=== PATIENT | male | born 1935 | race Caucasian/White ===

== ENCOUNTER 2018-03-04 07:42 | Emergency (ER) | payer MEDICARE, OTHER ==
--- OUTSIDE RECORDS SUMMARY | 2018-03-04 07:50 | XMS REPORT ---
:1935 External Reference #:[id number] Author Organization [facility] Address [address] [place] [address] Phone [phone] Care Team Providers Name Role Phone Slade Da Silva MD Primary Care Physician Unavailable Payers Type Date Identification Numbers Payment Provider Subscriber Medicare Primary Policy Number: [id number] Medicare-[facility] Gill Payne SRVS PayID: [id number] [address] [place] [address] Commercial Policy Number: [id number] [facility] [place] [facility] 1 Gill Payne Group Name: [facility] Serv Benefit Plans [address] PayID: [id number] [place] [address] Problems Date Description Provider Status Onset: 03/06/2014 Essential hypertension Yogesh Mcneill M.D. 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 daily Aspirin Low Dose / Active 81mg 1 po daily Self 0000 Carvedilol / Active 3.125mg 2 po daily even A. Coumadin / Active 2mg 1 po daily and as even A. directed MD Furosemide / Active 20mg 1 po daily even A. Glyburide-Metfor / Active 5/500mg 1 po bid even A. Lipitor / Active 80mg 1 po daily even A. Nexium / Active 40mg 1 po daily even A. Spironolactone / Active 25mg 1 po daily even A. Ofloxacin (Otic) 12/27/ Hx Solution 0.3% 10ml apply 5 H92.11 Yogesh Hunter 2017 - drops in Strom[place] 01/18/ right ear r, M.Brian 2017 twice daily Ofloxacin (Otic) 10/04/ Hx Solution 0.3% 10ml apply 5 Yogesh Hunter 2016 - drops in [place]rom[place] 12/27/ right ear r, M.Brian 2017 twice daily Ciprofloxacin 01/04/ Hx Solution 0.3% 5ml 4 drops to Bertrand HCL 2017 - affected Dat Marlys, 01/24/ ear twice 2017 a day for 7 days Vital Signs Date Vital Result Comment 02/15/2018 Weight 195.00 lb Weight in kg's 88.452 Height 68 inches 5'8" Height in cm's 172.7 cm BMI (Body Mass Index) 29.6 kg/m2 01/31/2018 Weight 195.00 lb Weight in kg's 88.452 Height 68 inches 5'8" Height in cm's 172.7 cm BMI (Body Mass Index) 29.6 kg/m2 01/18/2018 Weight 195.00 lb Weight in kg's 88.452 Height 68 inches 5'8" Height in cm's 172.7 cm BMI (Body Mass Index) 29.6 kg/m2 12/27/2017 Weight 195.00 lb Weight in kg's 88.452 Height 68 inches 5'8" Height in cm's 172.7 cm BMI (Body Mass Index) 29.6 kg/m2 10/18/2017 BP Systolic 139 mmHg BP Diastolic 61 mmHg Heart Rate 85 /min Respiratory Rate 17 /min Weight 195.00 lb Weight in kg's 88.452 Height 68 inches 5'8" Height in cm's 172.7 cm BMI (Body Mass Index) 29.6 kg/m2 10/04/2017 BP Systolic 157 mmHg BP Diastolic 73 mmHg Heart Rate 78 /min Respiratory Rate 17 /min Weight 195.00 lb Weight in kg's 88.452 Height 68 inches 5'8" Height in cm's 172.7 cm BMI (Body Mass Index) 29.6 kg/m2 01/24/2017 BP Systolic 150 mmHg BP Diastolic 82 mmHg Heart Rate 83 /min Respiratory Rate 17 /min Weight 195.00 lb Weight in kg's 88.452 Height 68 inches 5'8" Height in cm's 172.7 cm BMI (Body Mass Index) 29.6 kg/m2 01/05/2017 BP Systolic 170 mmHg BP Diastolic 94 mmHg Heart Rate 78 /min Respiratory Rate 17 /min Weight 195.00 lb Weight in kg's 88.452 Height 68 inches 5'8" Height in cm's 172.7 cm BMI (Body Mass Index) 29.6 kg/m2 05/03/2016 BP Systolic 127 mmHg BP Diastolic 66 mmHg Heart Rate 72 /min Respiratory Rate 17 /min Weight 195.00 lb Weight in kg's 88.452 Height 68 inches 5'8" Height in cm's 172.7 cm BMI (Body Mass Index) 29.6 kg/m2 09/02/2015 BP Systolic 139 mmHg BP Diastolic 71 mmHg Heart Rate 72 /min Respiratory Rate 17 /min Weight 195.00 lb Weight in kg's 88.452 Height 68 inches 5'8" Height in cm's 172.7 cm BMI (Body Mass Index) 29.6 kg/m2 03/06/2014 BP Systolic 139 mmHg BP Diastolic 69 mmHg Heart Rate 68 /min Respiratory Rate 16 /min Weight 68.00 lb Weight in kg's 30.845 Height 204 inches 17'0" Height in cm's 518.2 cm BMI (Body Mass Index) 1.1 kg/m2 Results Test Date Test Result H/L Range Note Laboratory test 01/31/2018 Ear Culture SEE RESULT BELOW 1 finding Laboratory test 12/27/2017 Surgical Pathology SEE RESULT BELOW 2 finding 1 SEE RESULT BELOW Name: GILL PAYNE : [address]: Yogesh Mcneill MD Acct: [id number] Unit: [id number] AGE: 82 Location: [facility] Re01/31/18 SEX: M Status: REG REF SPEC: [id number] TAISHA: 01/31/18-[address] [facility] [address]: Yogesh Mcneill MD REQ: [id number] RECD: 01/31/18 STATUS: COMP _ SOURCE: EAR SPDESC:RIGHT ORDERED: EAR Cult/GS COMMENTS: [id number] Procedure Result Reported Site Ear Culture Final 02/03/18- 0946 ML Organism 1 CORYNEBACTERIUM SPECIES Quantity 2+ Organism 2 ENTEROCOCCUS FAECALIS Quantity 2+ 2. ENTEROCOCCUS FAECALIS M.I.C. RX --------- ------ Ampicillin <=2 S Penicillin 8 S Ciprofloxacin >=8 R Erythromycin >=8 R Gentamicin High Level R Levofloxacin >=8 R Linezolid 2 S * Quinupristin/Dalfopristin 8 R * Streptomycin High Level R Tetracycline >=16 R Tigecycline <=0.12 S Vancomycin 1 S Imipenem-Deduced S * Ampicillin/Sulbactam-Deduced S CONTINUED ON NEXT PAGE DEPARTMENT OF PATHOLOGY, [address] [place] [address] Leo Ellis M.D. Director [facility] # [id number] Patient: GILL PAYNE [id number] (Continued) Specimen: [id number] Collected: 01/31/18 Received: 01/31/18-1152 (Continued) Procedure Result Reported Site Ear Culture Final (continued) * These antibiotics are not available in the [facility] Formulary Contact the Microbiology Department for any additional antibiotic reporting. Ear Gram Stain Final 01/31/18- 1447 ML 2+ Neutrophils 1+ Epithelial Cells 1+ Nucleated Cells 4+ Gram Positive Bacilli , resembling diptheroids 3+ Gram Positive Cocci * ML - Main Lab . END OF REPORT DEPARTMENT OF PATHOLOGY, [address] [place] [address] Leo lElis M.D. Director [facility] # [id number] 2 SEE RESULT BELOW Name: PAYNEGILL : [address]: Yogesh Mcneill MD Acct: [id number] Unit: [id number] AGE: 82 Location: [facility] Re12/27/17 SEX: M Status: REG REF SPEC: [id number] TAISHA: 12/27/17-[address] [facility] [address]: Yogesh Mcneill MD REQ: [id number] RECD: 12/27/171147 STATUS: SOUT _ ORDERED: LEVEL 4 COMMENTS: [id number] FINAL DIAGNOSIS Skin, left ear, biopsy: -- Basal cell carcinoma, superficial and nodular type, micronodular and infiltrative patterns, ulcerated. -- Lesional cells extend to the biopsy base and to at least one lateral specimen edge. CLINICAL HISTORY No history given GROSS DESCRIPTION The specimen is received in formalin labeled, Left Ear Lesion, and consists of a 0.4 by up to 0.3 x 0.2 cm garza-white irregular hairbearing skin fragment which is inked , bisected and submitted entirely in one cassette. Signed (signature on file) Maria De Jesus Martinez MD 1043 END OF REPORT DEPARTMENT OF PATHOLOGY, [address] [place] [address] Leo Ellis M.D. Director [facility] # [id number] Procedures Date CPT Code Description Status 02/15/2018 15553 Binocular Microscopy Completed 01/31/2018 61371 Binocular Microscopy Completed 12/27/2017 44201 Binocular Microscopy Completed 12/27/2017 59868 Biopsy External Ear Completed 10/04/2017 67697 Binocular Microscopy Completed 01/24/2017 18038 Binocular Microscopy Completed 05/03/2016 54295 Removal Wax Impaction Completed 09/02/2015 90656 Tympanometry Completed 09/02/2015 26796 Comprehensive Audiogram Completed 03/06/2014 81682 Binocular Microscopy Completed Encounters Type Date Location Provider CPT E/M Dx Office Visit 02/15/2018 [place],After 10/17/07 Yogesh Hunter 74915 H60.311 8:30a Robyn Mcneill H72.01 Office Visit 01/31/2018 9:30a [place],After 10/17/07 Yogesh Mcneill 84572 H92.11 M.D. H60.311 H72.01 Office Visit 01/18/2018 9:45a [place],After 10/17/07 Yogesh Mcneill 45809 H92.11 M.D. H60.311 H72.01 Office Visit 12/27/2017 9:30a [place],After 10/17/07 Yogesh Mcneill 51814 H92.11 M.D. H60.311 H72.01 D48.5 Office Visit 10/18/2017 11:15a [place],After 10/17/07 Yogesh Mcneill 47345 H72.01 M.D. H92.11 Office Visit 10/04/2017 2:30p [place],After 10/17/07 Yogesh Mcneill 67583 H72.01 M.D. H92.11 H61.22 Office Visit 01/24/2017 9:30a [place],After 10/17/07 Yogesh Mcneill 95711 H72.01 M.D. H90.8 Office Visit 01/05/2017 11:45a [place],After 10/17/07 [place] [address] H72.01 H92.11 Office Visit 09/02/2015 9:15a [place],After 10/17/07 Yogesh Mcneill 95553 H72.01 M.D. H61.23 H91.13 H90.11 Office Visit 03/06/2014 3:00p [place],After 10/17/07 Yogesh Mcneill, 19236 384.21 MElvis Plan of Care 02/15/2018 - Yogesh Mcneill M.D.H60.311 Diffuse otitis externa, right earComments:The patient's ear is doing much better. The problem was that the organisms causing the infection were resistant to the standard fluoroquinolone antibiotic ear drops. Switching to the Tobramycin was the correct thing to do. He will stop the drops and FU in 3 months.Follow up:FU in 3 months OV.H72.01 Central perforation of tympanic membrane, right ear
--- OUTSIDE RECORDS SUMMARY | 2018-03-04 07:50 | XMS REPORT ---
:1935 External Reference #:[id number] Author Organization [facility] Address [address] [place] [address] Phone [phone] Care Team Providers Name Role Phone Slade Da Silva MD Primary Care Physician Unavailable Payers Type Date Identification Numbers Payment Provider Subscriber Medicare Primary Policy Number: [id number] Medicare-[facility] Gill Payne SRVS PayID: [id number] [address] [place] [address] Commercial Policy Number: [id number] [facility] 1 Gill Payne Group Name: [facility] Serv Benefit Plans [address] PayID: [id number] [place] [address] Problems Date Description Provider Status Onset: 03/06/2014 Essential hypertension Yogesh Mcneill M.D. 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 Cigarette Use Never Smoked Cigarettes Cigars [...] days Vital Signs Date Vital Result Comment 01/31/2018 Weight 195.00 lb Weight in kg's [...] [address]: Yogesh Mcneill MD Acct: [id number] Unit: [id number] AGE: 82 Location: [facility] Re01/31/18 SEX: M Status: REG REF SPEC: [id number] TAISHA: 01/31/18-1004 [facility] DR: Yogesh Mcneill MD REQ: [id number] RECD: 01/31/18 STATUS: COMP _ SOURCE: EAR SPDESC:RIGHT ORDERED: EAR Cult/GS COMMENTS: [id number] Procedure Result Reported Site Ear Culture Final [...] CONTINUED ON NEXT PAGE DEPARTMENT OF PATHOLOGY, [address] [place] [address] Leo Ellis M.D. Director [facility] # [id number] Patient: GILL PAYNE [id number] (Continued) Specimen: [id number] Collected: 01/31/18-1003 Received: 01/31/18-1152 (Continued) Procedure Result Reported Site Ear Culture Final (continued) * These antibiotics are not available in the [facility] Formulary Contact the Microbiology Department for any additional antibiotic reporting. Ear Gram Stain Final 01/31/18- 1447 ML 2+ Neutrophils 1+ Epithelial Cells 1+ Nucleated Cells 4+ Gram Positive Bacilli , resembling diptheroids 3+ Gram Positive Cocci * ML - Main Lab . END OF REPORT DEPARTMENT OF PATHOLOGY, [address] [place] [address] Leo Ellis M.D. Director [facility] # [id number] 2 SEE RESULT BELOW Name: GILL PAYNE : [address]: Yogesh Mcneill MD Acct: [id number] Unit: [id number] AGE: 82 Location: [facility] Re12/27/17 SEX: M Status: REG REF SPEC: [id number] TAISHA: 12/27/17-0921 [facility] DR: Yogesh Mcneill MD REQ: [id number] RECD: 12/27/17 STATUS: SOUT _ ORDERED: LEVEL 4 COMMENTS: [id number] FINAL DIAGNOSIS Skin, left ear, biopsy: -- [...] 1043 END OF REPORT DEPARTMENT OF PATHOLOGY, [address] [place] [address] Leo Ellis M.D. Director [facility] # [id number] Procedures Date CPT Code Description Status 01/31/2018 58617 Binocular Microscopy Completed 12/27/2017 95859 Binocular Microscopy Completed 12/27/2017 32019 Biopsy External Ear Completed 10/04/2017 99860 Binocular Microscopy Completed 01/24/2017 93420 Binocular Microscopy Completed 05/03/2016 54875 Removal Wax Impaction Completed 09/02/2015 26369 Tympanometry Completed 09/02/2015 41947 Comprehensive Audiogram Completed 03/06/2014 64482 Binocular Microscopy Completed Encounters Type Date Location Provider CPT E/M Dx Office Visit 01/31/2018 9:30a [place],After 10/17/07 Yogesh Hunter 88378 H92.11 Robyn Mcneill H60.311 H72.01 Office Visit 01/18/2018 9:45a [place],After 10/17/07 Yogesh Mcneill 22570 H92.11 Robyn H60.311 H72.01 Office Visit 12/27/2017 9:30a [place],After 10/17/07 Yogesh Mcneill 93144 H92.11 Robyn H60.311 H72.01 D48.5 Office Visit 10/18/2017 11:15a [place],After 10/17/07 Yogesh Mcneill 57131 H72.01 Robyn H92.11 Office Visit 10/04/2017 2:30p [place],After 10/17/07 Yogesh Mcneill 15914 H72.01 Robyn H92.11 H61.22 Office Visit 01/24/2017 9:30a [place],After 10/17/07 Yogesh Mcneill 88607 H72.01 Robyn H90.8 Office Visit 01/05/2017 11:45a [place],After 10/17/07 [place] [address] H72.01 H92.11 Office Visit 09/02/2015 9:15a [place],After 10/17/07 Yogesh Mcneill 36495 H72.01 Robyn H61.23 H91.13 H90.11 Office Visit 03/06/2014 3:00p [place],After 10/17/07 Yogesh Mcneill 08053 384.21 Robyn Plan of Care Future Appointment(s):02/15/2018 8:30 am - Yogesh Mcneill M.D. at [place] ,After 10/17/07
[2018-03-04 08:09] VITALS: BP 135/69
--- NOTE | 2018-03-04 08:30 | RAD ---
HISTORY: Left hand swelling COMPARISONS: None VIEWS: 4, Frontal, lateral, and oblique views of the left hand FINDINGS: BONE DENSITY: There is diffuse osteopenia. BONES: There is no displaced fracture. JOINTS: There is osteoarthritis of interphalangeal joints and the first CMC joint. ALIGNMENT: There is no dislocation. SOFT TISSUES: There is soft tissue swelling along the dorsum of the hand. OTHER FINDINGS: None. IMPRESSION: 1. SOFT TISSUE SWELLING. 2. OSTEOPENIA. 3. OSTEOARTHRITIS. 4. NO ACUTE OSSEOUS INJURY. IF SYMPTOMS PERSIST, RECOMMEND REPEAT IMAGING.
--- NOTE | 2018-03-04 12:35 | UC ---
Terry Parks Stephanie, scribed for [facility]ogio MD on 03/04/18 at 0855 . Upper Extremity HPI - HPI Summary HPI Summary: In room note: The pt is an 82 y/o M presenting to the ED with c/o L hand swelling that began Tuesday night he was bleeding on L 4th finger. Yesterday noticed his L hand was swollen. Denies L elbow and arm pain. 2.5 weeks ago Coumadin level was normal. The pt denies L hand pain. Note: 82 y/o M with type 2 diabetes, internal pacemaker. L hand swelling. No other complaints. Pulse Ox 97. Vital signs stable. BP 135/ 69. Pt is on aspirin and Coumadin as well as synthroid for hypothyroidism. Hx of stroke. Nurse Note: tuesday night noticed a spot on his LEFT hand was bleeding. when they came home from being out last night, noticed the top of hand was quite swollen. 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 - ?: No Onset/Duration: Gradual Onset, Lasting Days - 2, Still Present Severity Currently: Mild Pain Intensity: 0 Pain Scale Used: 0-10 Numeric Aggravating Factor(s): Nothing Alleviating Factor(s): Nothing Associated Signs And Symptoms: Positive: Swelling - L HAND - Allergies/Home Medications Allergies/Adverse Reactions: Allergies Allergy/AdvReac Type Severity Reaction Status Date / Time No Known Allergies Allergy Verified 03/04/18 07:57 Home Medications: Home Medications Iron [Iron] 65 mg PO BID 03/04/18 [History Confirmed 03/04/18] Levothyroxine TAB* [Synthroid TAB*] 50 mcg PO 03/04/18 [History Confirmed ] Omeprazole 40 mg PO 03/04/18 [History] PMH/Surg Hx/FS Hx/Imm Hx Endocrine History: Diabetes, Hypothyroidism Cardiovascular History: Cardiac Disease, Hypertension, Pacemaker/ICD, Myocardial Infarction Other History Of: Anticoagulant Therapy - COUMADIN - Surgical History Surgical History: Yes Surgery Procedure, Year, and Place: PACEMAKER/ICD- 2008 ([facility]), CARDIAC STENTS X 3 -2008. HERNIA REPAIR- 1953. cataract surgery - September 2012. skin cancer removed from face August 2012. THROMBECTOMY & FASCIOTOMIE @ [facility] 2012 - Family History Known Family History: Negative: Cardiac Disease, Other - CANCER - Social History Occupation: Retired Lives: With Family Alcohol Use: None Substance Use Type: None Smoking Status (MU): Former Smoker Type: Cigarettes Have You Smoked in the Last Year: No When Did the Patient Quit Smoking/Using Tobacco: quit in 1950 Household Exposure Type: Cigarettes - Immunization History Most Recent Influenza Vaccination: UNSURE & REFUSES Most Recent Tetanus Shot: 03/28/[address] [place] office Most Recent Pneumonia Vaccination: HAD AROUND 2009 Review of Systems Constitutional: Negative Skin: Other - small L hand abrasion Eyes: Negative ENT: Negative Respiratory: Negative Cardiovascular: Negative Gastrointestinal: Negative Genitourinary: Negative Motor: Negative Neurovascular: Negative Musculoskeletal: Edema - L hand Neurological: Negative Psychological: Negative Is Patient Immunocompromised?: No All Other Systems Reviewed And Are Negative: Yes - Comments Additional Review of Systems Comments: POSITIVE: L HAND EDEMA, L HAND ABRASION NEGATIVE:DYSURIA, ABD PAIN Physical Exam - Summary Physical Exam Summary: Appearance: The patient is well-appearing, is in no pain distress, and is well- nourished. Eyes: Conjunctiva are clear. ENT: The hearing is grossly normal, the pharynx is normal, and the TMs are normal. There is no muffled or hoarse voice. Neck: The neck is supple and there is no lymphadenopathy. Respiratory: The chest is nontender. The lungs are clear, there are normal breath sounds, and there is no respiratory distress. Cardiovascular: Heart is regular rate and rhythm. There is no murmur. Abdomen: The abdomen is soft and nontender. There is no organomegaly. Bowel sounds: present Musculoskeletal: Strength is intact. The patient moves all extremities. L HAND SHOWS FULL ROM WITH SWELLING OVER 1ST AND 2ND METACARPALS. SWELLING CONSISITANT WITH BRUISING WELL LEAKING UNDER SKIN. AREA IS ECCHYMOTIC AND MILDLY TENDER TO PALPATION OVER 2ND AND 3ED METACARPAL. 2 CM CRUSTED LACERATION OVER KNUCKLE OF 4TH FINGER, DORSUM. NO TENDERNNESS OF ELBOW OR WRIST. Neurological: The patient is alert. Psychological: The patient displays age appropriate behavior Skin: Negative for rashes. Triage Information Reviewed: Yes Vital Signs: Initial Vital Signs Temp 98.2 F 03/04/18 08:01 Pulse 73 03/04/18 08:01 Resp 12 03/04/18 08:01 BP 135/69 03/04/18 08:01 Pulse Ox 97 03/04/18 08:01 Vital Signs Reviewed: Yes Diagnostics - Radiology Hand XRay Xray Interpretation: Positive (See Comments) Radiology Interpretation Completed By: Radiologist - 1. SOFT TISSUE SWELLING. 2. OSTEOPENIA. 3. OSTEOARTHRITIS. 4. NO ACUTE OSSEOUS INJURY. IF SYMPTOMS PERSIST, RECOMMEND REPEAT IMAGING. Upper Extremity Course/Dx - Course Course Of Treatment: Pt with contusion on Coumadin with swelling consistent with bleeding beneath the skin. This seems to be resolving. Elevated BP but has current hypertension diagnosis and treatment. This should be rechecked a few times in the next month. Medications have been included in the original chart and reviewed. - Differential Dx/Diagnosis Differential Diagnosis/HQI/PQRI: Other - fracture vs soft tissue injury Provider Diagnoses: contusion dorsum L hand with swelling secondary to bleeding Discharge - Sign-Out/Discharge Documenting (check all that apply): Discharge/Admit/Transfer - Discharge Plan Condition: Stable Disposition: HOME Patient Education Materials: Warfarin (By mouth), Contusion in Adults (ED) Referrals: Gely Ruiz MD [Primary Care Provider] - 3 Days Additional Instructions: WE DISCUSSED: 1. Your x ray did not show any broken bones. 2. Your swelling is probably a bruise and bleeding under the skin. 3. Use karina during the day; elevate. Try to bring down the swelling. Use for 3-7 days. 4. Go to ED for any increased pain or disability or swelling. 5. See your doctor if this is not improved in 10 days, or if you notice any other bleeding. The documentation as recorded by the Terry silva Stephanie accurately reflects the service I personally performed and the decisions made by me, Eulogio Cunningham MD.
== END 2018-03-04 09:13 | disposition home or self-care (01) ==
LOC: UCEAST 07:42
DX: S60.222A Contusion of left hand, initial encounter (principal); X58.XXXA Exposure to other specified factors, initial encounter; Y93.9 Activity, unspecified; Y92.9 Unspecified place or not applicable; Z79.01 Long term (current) use of anticoagulants; Z87.891 Personal history of nicotine dependence; Z95.0 Presence of cardiac pacemaker; E03.9 Hypothyroidism, unspecified; Z86.73 Personal history of transient ischemic attack (TIA), and cerebral infarction without residual deficits
CPT/HCPCS: 99212; G0463

== ENCOUNTER 2018-06-07 10:44 | Emergency (ER) | payer MEDICARE, OTHER ==
[2018-06-07 10:56] VITALS: BP 133/69
[2018-06-07] MEDS ORDERED: Tetan/Diph/Pertus SYR(Tdap)* 0.5 ML SYR(BOOSTRIX) use SYR IM ONE (11:12)
--- NOTE | 2018-06-07 11:15 | UC ---
HPI BURN - HPI Summary HPI Summary: 3 and 4 fingers of left hand blisters from picking up a hot bowl from the microwave yesterday--no pain slight erythema around blister - History of Current Complaint Chief Complaint: UCBurn Stated Complaint: BURN Time Seen by Provider: 06/07/18 10:55 Hx Obtained From: Patient Occurred: Days Ago - 1 Length of Exposure: Seconds Onset Severity: Mild Pain Intensity: 0 Pain Scale Used: 0-10 Numeric Location: LUE Character: Direct Thermal Contact Aggravating Factor(s): Nothing Alleviating Factor(s): Nothing Associated Signs & Symptoms: Positive: Negative Occupational Injury: No - Allergy/Home Medications Allergies/Adverse Reactions: Allergies Allergy/AdvReac Type Severity Reaction Status Date / Time No Known Allergies Allergy Verified 06/07/18 10:56 PMH/Surg Hx/FS Hx/Imm Hx Previously Healthy: No Endocrine History: Diabetes, Hypothyroidism, Dyslipidemia Cardiovascular History: Cardiac Disease, Hypertension Other History Of: Anticoagulant Therapy - COUMADIN - Surgical History Surgical History: Yes Surgery Procedure, Year, and Place: PACEMAKER/ICD- 2008 ([facility]), CARDIAC STENTS X -2008. HERNIA REPAIR- 1953. cataract surgery - September 2012. skin cancer removed from face August 2012. THROMBECTOMY & FASCIOTOMIE @ [facility] 2012 - Family History Known Family History: Negative: Cardiac Disease, Other - CANCER - Social History Occupation: Retired Lives: With Family Alcohol Use: None Substance Use Type: None Smoking Status (MU): Former Smoker Type: Cigarettes Have You Smoked in the Last Year: No When Did the Patient Quit Smoking/Using Tobacco: quit in 1950 Household Exposure Type: Cigarettes - Immunization History Most Recent Influenza Vaccination: UNSURE & REFUSES Most Recent Tetanus Shot: 03/28/[address] waters office Most Recent Pneumonia Vaccination: HAD AROUND 2009 Hx Tetanus, Diphtheria Vaccination: Yes Vaccination Up to Date: No Review of Systems Constitutional: Negative Skin: Other - intact blisters left 3/4 figer pads distally-- Eyes: Negative ENT: Negative Respiratory: Negative Cardiovascular: Negative Gastrointestinal: Negative Genitourinary: Negative Motor: Negative Neurovascular: Negative Musculoskeletal: Negative Neurological: Negative Psychological: Negative Is Patient Immunocompromised?: No All Other Systems Reviewed And Are Negative: Yes Physical Exam Triage Information Reviewed: Yes Appearance: Well-Appearing, No Pain Distress, Well-Nourished Vital Signs: Initial Vital Signs Temp 98 F 06/07/18 10:53 Pulse 88 06/07/18 10:53 Resp 17 06/07/18 10:53 BP 133/69 06/07/18 10:53 Pulse Ox 100 06/07/18 10:53 Vital Signs Reviewed: Yes Eye Exam: Normal Eyes: Positive: Conjunctiva Clear ENT Exam: Normal ENT: Positive: Normal ENT inspection, Hearing grossly normal. Negative: Trismus , Muffled voice, Hoarse voice Dental Exam: Normal Neck exam: Normal Neck: Positive: Supple, Nontender Respiratory Exam: Normal Respiratory: Positive: Chest non-tender, No respiratory distress, No accessory muscle use Cardiovascular Exam: Normal Cardiovascular: Positive: RRR, Pulses Normal, Brisk Capillary Refill Musculoskeletal Exam: Normal Musculoskeletal: Positive: Strength Intact, ROM Intact, No Edema Neurological Exam: Normal Neurological: Positive: Alert, Muscle Tone Normal Psychological Exam: Normal Skin Exam: Normal Skin: Positive: Other - intact blisters finger tip pads 3/4 finger of left hand Burn Calculation - [place] Formula for Fluid Resuscitation Weight: 86.183 kg 24 -Hour Fluid Replacement: 0.0 Course/Dx Burn - Course Course Of Treatment: update tetanus, dressings , keflex follow with pcp in 2-3 days for re-check and INR-- - Diagnoses Clinic Provider Diagnoses: 2 degree solorzano left 3/4 finger tips, update tetanus Discharge - Sign-Out/Discharge Documenting (check all that apply): Patient Departure All imaging exams completed and their final reports reviewed: No Studies - Discharge Plan Condition: Stable Disposition: HOME Prescriptions: Cephalexin CAP* [Keflex CAP*] 500 mg PO QID #20 cap Patient Education Materials: Diphtheria/Acellular Pertussis/Tetanus Vaccine ( By injection), Second Degree Burn (ED) Referrals: Gely Ruiz MD [Primary Care Provider] - 3 Days Additional Instructions: Change dressing everyday, day mild soap and water wash, follow with primary care for recheck in nest 2-3 days and to get INR re-checked - Billing Disposition and Condition Condition: STABLE Disposition: Home
== END 2018-06-07 11:30 | disposition home or self-care (01) ==
LOC: UCEAST 10:44
DX: T23.232A Burn of second degree of multiple left fingers (nail), not including thumb, initial encounter (principal); Z23 Encounter for immunization; Z87.891 Personal history of nicotine dependence; X19.XXXA Contact with other heat and hot substances, initial encounter; Y93.89 Activity, other specified; Y92.9 Unspecified place or not applicable
CPT/HCPCS: 90471; 90715; 99212; G0463

== ENCOUNTER 2019-01-17 20:16 | Inpatient (IN) | payer MEDICARE, OTHER ==
--- NOTE | 2019-01-17 20:43 | ED ---
GI/ HPI - HPI Summary HPI Summary: This patient is an 83 year old M presenting to ED accompanied by with a chief complaint of 2 episodes of rectal bleeding at 1830 and at 2009. The CC is described as bright red blood during BM tonight. The patient rates the pain 0/ 10 in severity. Symptoms aggravated by nothing. Symptoms alleviated by nothing. PMHx of 2 strokes and DVT (2012). He took Coumadin tonight. The patient had a colonoscopy done before about 10 years ago. - History of Current Complaint Chief Complaint: EDGIBleed Time Seen by Provider: 01/17/19 20:35 Stated Complaint: BOWEL MOVEMENT TOILET FULL OF BLOOD PER PT Hx Obtained From: Patient, Family/Currency Machine Operator - accompanied by Onset/Duration: Started Hours Ago - 2 episodes of rectal bleeding at 1829 and at 2009, Resolved Timing: Intermittent Current Severity: None Vaginal Bleeding Description: Bright Red Pain Intensity: 0 Associated Signs and Symptoms: Positive: Bright Red Blood w/Stool - Allergy/Home Medications Allergies/Adverse Reactions: Allergies Allergy/AdvReac Type Severity Reaction Status Date / Time No Known Allergies Allergy Verified 06/07/18 10:56 PMH/Surg Hx/FS Hx/Imm Hx Endocrine/Hematology History: Reports: Hx Anticoagulant Therapy - COUMADIN, Hx Diabetes - Type 2, Hx Thyroid Disease, Other Endocrine/Hematological Disorders - DIABETIC NEUROPATHY Denies: Hx Blood Disorders, Hx Blood Transfusions, Hx Bone Marrow Disease, Hx Systemic Lupus Erythematosus, Hx Sickle Cell Disease, Hx Anemia, Hx Unexplained Bleeding Cardiovascular History: Reports: Hx Auto Implanted Cardiovert Defib - ICD [facility], Hx Cardiac Arrest, Hx Coronary Artery Disease, Hx Deep Vein Thrombosis - LEFT LEG 2012, Hx Hypercholesterolemia - HLD, Hx Hypertension, Other Cardiovascular Problems/Disorders - SUBDURAL HEMATOMA Denies: Hx Aneurysm, Hx Angina, Hx Angioplasty, Hx Cardiomegaly, Hx Congenital Heart Disease, Hx Congestive Heart Failure, Hx Hypotension, Hx Pacemaker/ICD, Hx Peripheral Vascular Disease, Hx Rheumatic Fever, Hx Syncope, Hx Valvular Heart Disease Respiratory History: Denies: Hx Asthma, Hx Chronic Bronchitis, Hx Chronic Obstructive Pulmonary Disease (COPD), Hx Cystic Fibrosis, Hx Lung Cancer, Hx Pleural Effusion, Hx Pneumonia, Hx Pulmonary Edema, Hx Pulmonary Embolism, Hx Seasonal Allergies, Hx Sleep Apnea GI History: Reports: Other GI Disorders - Inguinal hernia Denies: Hx Cirrhosis, Hx Crohn's Disease, Hx Diverticulosis, Hx Gall Bladder Disease, Hx Gastroesophageal Reflux Disease, Hx Gastrointestinal Bleed, Hx Hiatal Hernia, Hx Irritable Bowel, Hx Jaundice, Hx Obstructive Bowel, Hx Ileostomy, Hx Pyloric Stenosis, Hx Ulcer History: Reports: Hx Benign Prostatic Hyperplasia, 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 Denies: Hx Acute Renal Failure, Hx Dialysis, Hx Kidney Infection, Hx Kidney Stones, Hx Renal Disease Musculoskeletal History: Reports: Other Musculoskeletal History - LEFT SIDED WEAKNESS R/T CVA Denies: Hx Arthritis, Hx Back Problems, Hx Bursitis, Hx Congenital Bone Abnormalities, Hx Fibromyalgia, Hx Gout, Hx Orthopedic Injury, Hx Osteoporosis, Hx Scoliosis, Hx Tendonitis Sensory History: Reports: Hx Cataracts, Hx Contacts or Glasses, Hx Hearing Problem - mild chenega, does not wear DOBSON;s Denies: Hx Eye Injury, Hx Eye Prosthesis, Hx Glaucoma, Hx Macular Degeneration, Hx Vision Problem, Hx Deafness, Hx Hearing Aid, Other Sensory Impairments Opthamlomology History: Reports: Hx Cataracts, Hx Contacts or Glasses Denies: Hx Eye Injury, Hx Eye Prosthesis, Hx Glaucoma, Hx Macular Degeneration, Hx Vision Problem, Other Sensory Impairments Neurological History: Reports: Other Neuro Impairments/Disorders - SUBDRUAL HEMATOMA 03/29 Denies: Hx Dementia, Hx Developmental Delay, Hx Headaches, Hx Migraine, Hx Nerve Disease, Hx Seizures, Hx Spinal Cord Injury, Hx Transient Ischemic Attacks (TIA) Psychiatric History: Denies: Hx Anxiety, Hx Attention Deficit Hyperactivity Disorder, Hx Eating Disorder, Hx Depression, Hx Panic Disorder, Hx Post Traumatic Stress Disorder, Hx Inpatient Treatment, Hx Community Mental Health Tx, Hx Schizophrenia, Hx Bipolar Disorder, Hx Suicide Attempt, Hx Substance Abuse - Cancer History Cancer Type, Location and Year: Skin cancer August 2012. cholestrerol Hx Chemotherapy: No Hx Radiation Therapy: No - Surgical History Surgery Procedure, Year, and Place: PACEMAKER/ICD- 2009 ([facility]), CARDIAC STENTS X . HERNIA REPAIR- 1953. cataract surgery - September 2012. skin cancer removed from face August 2012. THROMBECTOMY & FASCIOTOMIE @ [facility] 2012 Hx Anesthesia Reactions: No - Immunization History Date of Tetanus Vaccine: <10 yrs. Date of Influenza Vaccine: >1 yr. Infectious Disease History: No Infectious Disease History: Reports: Hx Shingles - pt cannot remember date Denies: Hx Clostridium Difficile, Hx Hepatitis, Hx Human Immunodeficiency Virus (HIV), Hx Tuberculosis, Traveled Outside the [place] in Last 30 Days - Family History Known Family History: Negative: Cardiac Disease, Other - CANCER - Social History Alcohol Use: None Substance Use Type: Reports: None Hx Tobacco Use: Yes Smoking Status (MU): Former Smoker Type: Cigarettes Have You Smoked in the Last Year: No Review of Systems Negative: Fever Positive: Other - rectal bleeding (2 episodes) All Other Systems Reviewed And Are Negative: Yes Physical Exam - Summary Physical Exam Summary: VITAL SIGNS: Reviewed. GENERAL: Patient is a well-developed and nourished MALE who is lying comfortable in the stretcher. Patient is not in any acute respiratory distress. Pallor. HEAD AND FACE: No signs of trauma. No ecchymosis, hematomas or skull depressions. No sinus tenderness. EYES: PERRLA, EOMI x 2, No injected conjunctiva, no nystagmus. EARS: Hearing grossly intact. Ear canals and tympanic membranes are within normal limits. MOUTH: Oropharynx within normal limits. NECK: Supple, trachea is midline, no adenopathy, no JVD, no carotid bruit, no c- spine tenderness, neck with full ROM. CHEST: Symmetric, no tenderness at palpation LUNGS: Clear to auscultation bilaterally. No wheezing or crackles. CVS: Regular rate and rhythm, S1 and S2 present, no murmurs or gallops appreciated. ABDOMEN: Soft, non-tender. No signs of distention. No rebound no guarding, and no masses palpated. Bowel sounds are normal. EXTREMITIES: FROM in all major joints and no cyanosis or clubbing. Bilateral LE edema, L more than R which is chronic. NEURO: Alert and oriented x 3. No acute neurological deficits. Speech is normal and follows commands. SKIN: Dry and warm RECTAL EXAM: tangible blood on finger, no active bleeding Triage Information Reviewed: Yes Vital Signs On Initial Exam: Initial Vitals Temp Pulse Resp BP Pulse Ox 98.3 F 115 18 117/78 100 01/17/19 20:19 01/17/19 20:19 01/17/19 20:19 01/17/19 20:19 01/17/19 20:19 Vital Signs Reviewed: Yes Diagnostics - Vital Signs Vital Signs Temp Pulse Resp BP Pulse Ox 01/17/19 20:19 98.3 F 115 18 117/78 100 - Laboratory Result Diagrams: 01/17/19 20:42 01/17/19 20:42 Lab Statement: Any lab studies that have been ordered have been reviewed, and results considered in the medical decision making process. - Radiology CXR Radiology Interpretation Completed By: ED Physician Summary of Radiographic Findings: No acute processes. Pending radiologist official report. - EKG 2035 Cardiac Rate: Other Rate - atrial paced at 77 BPM Summary of EKG Findings: L axis deviation Re-Evaluation - Re-Evaluation First Eval Re-Evaluation Time: 21:32 Comment: Discussed results and plan for admission with the patient. Patient understands and agrees with this plan. GIGU Course/Dx - Course Assessment/Plan: This patient is an 83 year old M presenting to ED accompanied by with a chief complaint of 2 episodes of rectal bleeding at 1830 and at 2009. In the ED course, the patient was given fluids. EKG reveals atrial paced at 77 BPM and L axis deviation. CXR, per Dr. Ferraro, reveals no acute processes. Consulted Dr. Howard at 2130 and she accepts the patient for admission. The patient will be admitted with dx of lower GI bleed. Patient understands and agrees with this plan. - Diagnoses Differential Diagnoses - Male: Other - lower GI bleed Provider Diagnoses: Lower GI bleed - Physician Notifications Discussed Care Of Patient With: Maritza Howard Time Discussed With Above Provider: 21:31 Instructed by Provider To: Admit As Inpatient Discharge - Sign-Out/Discharge Documenting (check all that apply): Patient Departure - admit Patient Received Moderate/Deep Sedation with Procedure: No - Discharge Plan Condition: Stable Disposition: ADMITTED TO [facility] Referrals: Gely Ruiz MD [Primary Care Provider] - - Attestation Statements Document Initiated by Scribe: Yes Documenting Scribe: Yamil Calvert Provider For Whom Scribe is Documenting (Include Credential): Drake Ferraro MD Scribe Attestation: Yamil Parks scribed for Drake Ferraro MD on 01/17/19 at 2131. Status of Scribe Document: Ready
[2019-01-17 21:00] LABS: ABS Basophils 0.1 10^3/ul (0-0.2); ABS Eosinophils 0.3 10^3/ul (0-0.6); ABS Neutrophils 6.4 10^3/ul (1.5-7.7); ABS Nucleated RBC 0 10^3/ul; Eosinophil % 2.5 %; Hematocrit 26 % (36-46); Hemoglobin 8.3 g/dL (14.0-18.0); Lymphocyte % 27.5 %; Mean Corpuscular HGB Conc 33 g/dL (31-36); Mean Corpuscular Hemoglobin 30 pg (27-31); Mean Corpuscular Volume 91 fL (80-94); Mean Platelet Volume 8.1 fL (7.4-10.4); Nucleated Red Blood Cells % 0; Platelet Count 260 10^3/uL (150-450); Red Blood Count 2.83 10^6 /uL (4.18-5.48); Red Cell Distribution Width 15 % (10.5-15); White Blood Count 10.7 10^3/uL (3.5-10.8)
[2019-01-17] MEDS ORDERED: NS 0.9% 1000 ML** 1,000 ML IV SCH (21:00)
[2019-01-17 21:09] LABS: INR 3.09 (0.77-1.02)
[2019-01-17 21:20] LABS: Albumin 3.5 g/dL (3.2-5.2); Albumin/Globulin Ratio 1.3 (1-3); BUN/Creatinine Ratio 12.2 (8-20); Calcium 7.8 mg/dL (8.6-10.3); EGFR African American 24.7 (>60); EGFR Non-African American 20.4 (>60); Globulin 2.7 g/dL (2-4); Total Bilirubin 0.4 mg/dL (0.2-1.0); Total Protein 6.2 g/dL (6.4-8.9)
[2019-01-17 21:21] LABS: Potassium 5.1 mmol/L (3.5-5.0)
[2019-01-17] MEDS ORDERED: Acetaminophen TAB* 325 MG PO PRN (22:03)
[2019-01-17] MEDS ORDERED: Ondansetron INJ* 2 MG/ML VIAL IV PRN (22:03)
[2019-01-17] MEDS ORDERED: Al Hydrox/Mg Hydrox/Simet LIQ* 30 ML UDC PO PRN (22:03)
[2019-01-17] MEDS ORDERED: Dextrose 50% Syringe 50 ML* 25 GM/50 ML SYRINGE IV PUSH PRN (23:02)
--- NOTE | 2019-01-18 00:44 | PN ---
Progress Note - Progress Note Date of Service: 01/18/19 Note: CAT CALL Patient within an hour of arriving to floor developed puritic rash. FFP discontinued and sent down for transfusion reaction. Shortly thereafter he became confused, lethargic and left eye redness and swelling. Vitals WNL. Glucose: Nl. Patient noted to have left eye lid edema, conjunctival edema and injection. Patient quickly became alert and oriented stating he didn't like everybody around him and him not knowing what was going on. Suspect this is all related to the FFP. Will start polytrim eye drops to left eye for now. One dose of zyrtec, vitamin K instead of any further FFP. Will await for pathologist to review reaction to determine if he can receive one unit of PRBCs. No wheezing, no vomiting or abdominal pain. Faint maculopapular rash on torso.
--- NOTE | 2019-01-18 00:46 | HP ---
CC: Gely Ruiz MD * HISTORY AND PHYSICAL: DATE OF ADMISSION: 01/17/19 TIME OF EVALUATION: 0 PRIMARY CARE PHYSICIAN: Gely Ruiz MD CHIEF COMPLAINT: Bright red blood per rectum. HISTORY OF PRESENT ILLNESS: This is an 83-year-old male with past medical history of CVA, CHF and CKD, on Coumadin, who presented to the emergency room after having 2 episodes of bloody stools. The patient states that he was in his usual state of health today, around 6 p.m. this evening, he noticed dark blood mixed in with loose stool. Around 9 p.m., he had just bright red blood per rectum. He showed his . They were concerned. They came to the emergency room for further evaluation. He last took 4 mg of Coumadin at 5 p.m. this evening. When he was in the emergency room when he got up to use the commode, he had felt lightheaded and dizzy. He denies any abdominal pain. He states increasing gas and indigestion. No nausea. No vomiting. No chest pain. No shortness of breath. No urinary symptoms. He denies any NSAID use. No changes to his medications. No recent weight changes. He has not had a recent colonoscopy. He states that Gastroenterology said he did not need one in the setting of all his comorbidities. In the emergency room, the patient had labs, imaging. He was ordered 2 FFP and 1 unit PRBCs and referred to the hospitalist service for further evaluation. PAST MEDICAL HISTORY: 1. History of coronary artery disease, status post MN and cardiac arrest, with 3 stents and ICD placement, followed by Dr. Resendiz. 2. History of CHF, unclear of his most recent EF. 3. History of hypothyroidism. 4. CKD. 5. GERD. 6. Hyperlipidemia. 7. Diabetes. 8. History of a lower extremity DVT. 9. Status thrombectomy and fasciotomy for compartment syndrome in 2013 at [facility]. MEDICATIONS: 1. Aspirin 81 mg p.o. daily. 2. Carvedilol 3.125 mg p.o. b.i.d. 3. Lasix 20 mg daily. 4. Glyburide/metformin 5/500 b.i.d. 5. Synthroid 50 mcg daily. 6. Lipitor 80 mg daily. 7. Iron 65 mg b.i.d. 8. Omeprazole 40 mg daily. 9. Warfarin 4 mg as directed. 10. Spironolactone 25 mg 11. Multivitamin daily. ALLERGIES: No known drug allergies. FAMILY HISTORY: Reviewed and noncontributory. SOCIAL HISTORY: The patient lives at home with his who is his healthcare proxy. He is independent of the ADLs. He ambulates with a cane. No recent falls. He had no smoking, alcohol or illicit drug use. He is a full code. REVIEW OF SYSTEMS: A 14-point review of systems as mentioned in the HPI, otherwise negative. PHYSICAL EXAMINATION GENERAL: In no acute distress, pale appearing, his is at bedside and he is hard of hearing. VITAL SIGNS: Temp 98.3, pulse rate 70, respiratory rate 19, oxygen saturation 99 % on room air, blood pressure 116/70. HEENT: Head: Normocephalic. Pupils are equal and reactive. Conjunctivae are pale. Oropharynx: His mucous membranes moist . NECK: Supple. No lymphadenopathy. RESPIRATORY: Diminished breath sounds. No wheezing, rhonchi or rales. CARDIAC: Regular rate and rhythm. Soft systolic murmur heard throughout. ABDOMEN: Hypoactive bowel sounds, soft, nontender, nondistended. EXTREMITIES: +2 pretibial edema with distal pulses. NEUROLOGIC: Alert and oriented x3. No gross focal neurologic deficits. LABORATORY DATA: White count 10.7, hemoglobin 8.3, hematocrit 26, platelets 260. INR is 3.09. Sodium 137, potassium 5.1, chloride 108, bicarb 19, BUN 36, creatinine 2.95, glucose 110. ASSESSMENT: This is an 83-year-old male with past medical history of cerebrovascular accident and coronary artery disease, on Coumadin, who presented to the emergency room having two episodes of bright red blood per rectum with presyncopal episode. 1. Gastrointestinal bleed. Assessment: Most likely diverticular in the setting of bright red blood per rectum. His abdominal exam is benign. He did drop is H and H and his INR 3. He is getting 2 FFP and 1 unit of PRBCs. Plan: We will admit him to [address] [place] [address]. Repeat his blood work in the morning. We will hold his Coumadin and his aspirin. We will also hold his furosemide and spironolactone in the setting of hypovolemia and his hyperkalemia. We will keep him on a clear liquid diet with gentle IV fluids, recommend followup with GI in the morning to determine if he is a candidate for colonoscopy. We will repeat his labs in the morning. 2. Chronic medical problems. Diabetes, we will place him on Lispro sliding scale. 3. History of coronary artery disease. As mentioned, we will hold his aspirin , continue his carvedilol. 4. Hypothyroid. Continue with Synthroid. 5. Hyperlipidemia. Continue with atorvastatin. 6. Gastroesophageal reflux disease. We will place him on pantoprazole in place of omeprazole. 7. FEN: Clear liquid diet and gentle IV fluids. 8. DVT prophylaxis: The patient scores high risk. We will place him on SCDs. 9. Code status: The patient is a full code. TIME SPENT: Greater than 45 minutes was spent doing the history and physical, more than half the time spent in direct patient contact. [id number]/[facility] #: [id number] SERGIO
[2019-01-18] MEDS ORDERED: Cetirizine* 10 MG TAB PO ONE (01:00)
[2019-01-18] MEDS ORDERED: Phytonadione Oral Solution* 5 MG/25 ML UDC PO ONE (01:00)
[2019-01-18 01:21] LABS: Hematocrit 20 % (36-46); Hemoglobin 6.8 g/dL (14.0-18.0)
[2019-01-18] MEDS: Polymyx/Trimethoprim OPTH* 10 ML BTL LEFT EYE SCH ×8 (01:55→21:49)
[2019-01-18] MEDS: Insulin LISPRO* 1 UNITS UNIT SUBCUT SCH ×4 (01:55→18:06)
[2019-01-18] MEDS: Levothyroxine TAB* 50 MCG TAB PO SCH (05:49)
[2019-01-18 07:23] LABS: ABS Basophils 0 10^3/ul (0-0.2); ABS Eosinophils 0 10^3/ul (0-0.6); ABS Lymphocytes 1.8 10^3/ul (1.0-4.8); ABS Monocytes 0.7 10^3/ul (0-0.8); ABS Neutrophils 5.9 10^3/ul (1.5-7.7); ABS Nucleated RBC 0 10^3/ul; Eosinophil % 0.1 %; Hematocrit 20 % (36-46); Hemoglobin 6.8 g/dL (14.0-18.0); Lymphocyte % 21.2 %; Mean Corpuscular HGB Conc 35 g/dL (31-36); Mean Corpuscular Hemoglobin 31 pg (27-31); Mean Corpuscular Volume 89 fL (80-94); Mean Platelet Volume 8.1 fL (7.4-10.4); Nucleated Red Blood Cells % 0; Platelet Count 147 10^3/uL (150-450); Red Blood Count 2.23 10^6 /uL (4.18-5.48); Red Cell Distribution Width 14 % (10.5-15); White Blood Count 8.5 10^3/uL (3.5-10.8)
[2019-01-18 07:30] LABS: INR 2.81 (0.77-1.02)
[2019-01-18 07:45] LABS: BUN/Creatinine Ratio 13.6 (8-20); EGFR African American 24.8 (>60); EGFR Non-African American 20.5 (>60)
[2019-01-18 07:47] LABS: Potassium 6.1 mmol/L (3.5-5.0)
[2019-01-18] MEDS ORDERED: Patiromer POWDER* 8.4 GM PAK PO SCH (09:00)
--- NOTE | 2019-01-18 09:24 | PN ---
Subjective Date of Service: 01/18/19 Interval History: No pain. C/O needs to have BM. Objective Active Medications: Acetaminophen (Tylenol Tab*) 650 mg PO Q4H PRN PRN Reason: FEVER/PAIN Al Hydrox/Mg Hydrox/Simethicone (Maalox Plus*) 30 ml PO Q6H PRN PRN Reason: INDIGESTION Atorvastatin Calcium (Lipitor*) 80 mg PO 1700 [facility] Carvedilol (Coreg Tab*) 3.125 mg PO BID [facility] Dextrose (D50w Syringe 50 Ml*) 12.5 gm IV PUSH .FOR FS < 60 - SS PRN PRN Reason: FS < 60 Ferrous Sulfate (Ferrous Sulfate Tab*) 325 mg PO BID [facility] Sodium Chloride (Ns 0.9% 1000 Ml) 1,000 mls @ 75 mls/hr IV PER RATE [facility] Insulin Human Lispro (Humalog*) 0 units SUBCUT AC [facility]; Protocol Last Admin: 01/18/19 09:09 Dose: Not Given Levothyroxine Sodium (Synthroid Tab*) 50 mcg PO DAILY@0600 [facility] Last Admin: 01/18/19 05:49 Dose: 50 mcg Ondansetron HCl (Zofran Inj*) 4 mg IV Q4H PRN PRN Reason: NAUSEA/VOMITING Pantoprazole Sodium (Protonix Tab*) 40 mg PO DAILY [facility] Patiromer (Veltassa Powder*) 8.4 gm PO TID [facility] Polymyxin/Trimethoprim Sulfate (Polytrim Ophth*) 1 drop LEFT EYE Q3H [facility] Last Admin: 01/18/19 08:48 Dose: Not Given Sodium Bicarbonate (Sodium Bicarbonate (Antacid)*) 650 mg PO BID [facility] Vital Signs - 8 hr 01/18/19 01/18/19 01/18/19 05:41 07:25 08:39 Temperature 98.0 F 98.0 F 98.5 F Pulse Rate 82 92 96 Respiratory 18 20 16 Rate Blood Pressure 114/53 117/55 113/50 (mmHg) O2 Sat by Pulse 100 99 100 Oximetry 01/18/19 08:51 Temperature Pulse Rate Respiratory 16 Rate Blood Pressure (mmHg) O2 Sat by Pulse Oximetry Oxygen Devices in Use Now: None Appearance: Alert, supine in bed. Neutral affect. Looks comfortable. Eyes: No Scleral Icterus Respiratory: Symmetrical Chest Expansion and Respiratory Effort, Clear to Auscultation, Clear to Percussion Cardiovascular: NL Sounds; No Murmurs; No JVD, RRR, No Edema, - Abdominal: No Hepatosplenomegaly, - - Very obese, soft. Nl BS Extremities: No Edema, No Clubbing, Cyanosis, - Skin: No Rash or Ulcers, No Nodules or Sclerosis, - Neurological: NL Sensation, - - Guessed his age was 84, did not know present month or year, did name facility correctly, gave his full name and 's name Result Diagrams: 01/18/19 07:03 01/18/19 07:03 Microbiology and Other Data: Microbiology 01/18/19 00:29 Transfusion Reaction Gram Stain - Final Blood Bag Assess/Plan/Problems-Billing Assessment: - Patient Problems (1) GI bleed Current Visit: Yes Status: Acute Code(s): K92.2 - GASTROINTESTINAL HEMORRHAGE, UNSPECIFIED SNOMED Code(s): 18211349 Comment: BRBPR. Received 2 U PRBC' by 01/18 AM, 1 U FFP. Allergic reaction to FFP, Blood Bank staff recommend diphenhydramine ebefore FFP for him. CBC 11 AM 01/18. Discussed with Dr. Jeffers. CBC, INR 4/5. Received 5 mg vit K 01/18. (2) CKD (chronic kidney disease) Current Visit: Yes Status: Acute Code(s): N18.9 - CHRONIC KIDNEY DISEASE, UNSPECIFIED SNOMED Code(s): 769465492 Comment: Est GFR 24.8 01/18/19. (3) Diabetes Current Visit: Yes Status: Acute Code(s): E11.9 - TYPE 2 DIABETES MELLITUS WITHOUT COMPLICATIONS SNOMED Code(s): 90631537 Comment: Metformin, glyburide on hold. SSI. (4) Hypothyroid Current Visit: Yes Status: Acute Code(s): E03.9 - HYPOTHYROIDISM, UNSPECIFIED SNOMED Code(s): 07238877 Comment: TSH wnl 11/14/18. (5) CAD (coronary artery disease) Current Visit: Yes Status: Acute Code(s): I25.10 - ATHSCL HEART DISEASE OF [place] CORONARY ARTERY W/O ANG PCTRS SNOMED Code(s): 79563519 Comment: Continue carvedilol, statin. Resume ASA when appropriate.
[2019-01-18] MEDS: Ferrous Sulfate TAB* 325 MG PO SCH ×2 (09:38→20:15)
[2019-01-18] MEDS: Pantoprazole TAB * 40 MG TAB PO SCH (09:39)
[2019-01-18] MEDS: Sodium Bicarbonate (ANTACID)* 650 MG TAB PO SCH ×2 (09:39→20:15)
[2019-01-18] MEDS: Carvedilol TAB* 3.125 MG PO SCH ×2 (09:39→20:15)
[2019-01-18] MEDS: Patiromer POWDER* 8.4 GM PAK PO SCH ×2 (12:55→17:34)
--- NOTE | 2019-01-18 14:00 | PN ---
Progress Note - Progress Note Date of Service: 01/18/19 Note: Lab received specimen for CBC at 13:45. Pt has had 6 bloody BM's and is hypotensive. 2 U PC's ordered, 500 ml NSS bolus. CBC 11 PM today.
[2019-01-18 14:23] LABS: ABS Basophils 0.1 10^3/ul (0-0.2); ABS Eosinophils 0 10^3/ul (0-0.6); ABS Neutrophils 9.5 10^3/ul (1.5-7.7); ABS Nucleated RBC 0 10^3/ul; Eosinophil % 0.2 %; Hematocrit 19 % (36-46); Hemoglobin 6.3 g/dL (14.0-18.0); Lymphocyte % 15.7 %; Mean Corpuscular HGB Conc 33 g/dL (31-36); Mean Corpuscular Hemoglobin 30 pg (27-31); Mean Corpuscular Volume 90 fL (80-94); Mean Platelet Volume 8.7 fL (7.4-10.4); Nucleated Red Blood Cells % 0.1; Platelet Count 147 10^3/uL (150-450); Red Cell Distribution Width 14 % (10.5-15); White Blood Count 12.6 10^3/uL (3.5-10.8)
--- NOTE | 2019-01-18 16:07 | CONS ---
CC: Gely Ruiz MD, primary care physician. * CONSULTATION REPORT: DATE OF CONSULT: 01/18/19 REQUESTING PROVIDER: Dr. Maritza Howard. REASON FOR CONSULTATION: Hematochezia. HISTORY OF PRESENT ILLNESS: This is an 83-year-old male with past medical history of CVA, CHF, and CKD, who is on warfarin therapy who presented to the emergency room after multiple movements of bloody stools. He states that this happened around the late evening of 01/17/19. He did occasionally see darker stool, but does not admit to gross melena. He denies any history of this before. He has been on Coumadin for a long time for his prior CVA and DVT. He states that in the emergency room he did feel a little bit lightheaded and dizzy. Today, he states that he does not feel lightheaded or dizzy. He denies any abdominal pain. Denies any Motrin, ibuprofen, or Aleve, or other NSAID use. No nausea or emesis. No dysphagia, no odynophagia. He states that he had a colonoscopy 10 to 15 years ago. He did have an upper scope with Dr. Da Silva in 2014, which showed a hiatal hernia that was otherwise normal. Given these comorbidities, it was decided not to proceed with additional colonoscopy at that time. The last colonoscopy appears to be in [address] Da Silva. It showed a few diminutive polyps and some mild sigmoid diverticulosis. It was otherwise normal. The patient is little bit of a reluctant historian, but was able to provide good history overall. Denies any weight loss or weight gain. The remainder of the 14-point review of systems is grossly negative. PAST MEDICAL HISTORY: 1. Coronary artery disease. 2. CHF. 3. DVT. 4. Hypothyroidism. 5. CKD. 6. GERD. 7. Hyperlipidemia. 8. Diabetes. 9. Thrombectomy and fasciectomy for compartment syndrome in 2013 at [facility]. HOME MEDICATIONS: Include: 1. Aspirin. 2. Carvedilol. 3. Lasix. 4. Glyburide. 5. Metformin. 6. Synthroid. 7. Lipitor. 8. Iron. 9. Omeprazole. 10. Warfarin. 11. Spironolactone. 12. Multivitamin. ALLERGIES: No known drug allergies. FAMILY HISTORY: Denies any family history of colon cancer or inflammatory bowel disease. SOCIAL HISTORY: Lives at home with his . Denies smoking or significant alcohol use. REVIEW OF SYSTEMS: Remainder of 14-point review of systems is grossly negative except for as described in the HPI. PHYSICAL EXAM: Vital Signs: Blood pressure is 144/127, pulse is 116, temperature is 97.8, respiratory rate is 18. In general, hard of hearing, but alert. HEENT: Atraumatic, normocephalic. Pupils equal, round, reactive to light. Conjunctivae slightly pale. Sclerae anicteric. Cardiovascular: Tachycardic, S1, S2. Respiratory: Slightly diminished at the base with trace rales. Abdomen: Soft, nontender, nondistended. Bowel sounds positive. Extremities: No clubbing, no cyanosis, no edema. Posterior exam of scant maroon-colored stool noted. Skin: A few scattered ecchymoses noted. DIAGNOSTIC STUDIES/LAB DATA: Hemoglobin on 01/17/19 was 8.3, today 6.8; platelet count is 147. INR is 2.81. Potassium 6.1, chloride 112, CO2 is 18. BUN is 40, creatinine is 2.94, glucose 203, calcium 7.0. AST 19, ALT 11. Albumin 3.5. ASSESSMENT AND PLAN: This is an 83-year-old male with hematochezia. 1. Acute blood loss anemia secondary to hematochezia, appears to be lower gastrointestinal source, doubt brisk upper. Given the pain with nature, suspect more that this may be a diverticular bleed. His INR has not been corrected and is still 2.94. FFP was attempted to be given last night along with 2 units of PRBCs. It is unclear if he may have had a transfusion reaction. At this point, given the ongoing nature of his bleeding, endoscopy would be beneficial; however, with an INR of 2.94, unlikely to be successful and may likely cause more bleeding. At this point, I recommend aggressive resuscitation including transfusion to keep the hemoglobin above 7. We would also recommend giving a dose of Kcentra to reverse his coagulopathy with the thought that this will likely decrease the bleeding, if not stop it. If there is still ongoing bleeding, I recommend contacting the GI service and once the INR has been corrected, I can consider flexible sigmoidoscopy for potential therapy. If no source is found on flexible sigmoidoscopy, we will recommend potentially an EGD at that point. I discussed this with Dr. Michaels, the patient 's primary hospitalist here. Please contact the GI service with any ongoing bleeding after resuscitation has been completed. I recommend H and H every 6 hours, keep 2 units of PRBCs on hold at all times. Keep the head of the bed elevated and recommend oxygen therapy. 2. History of deep vein thrombosis, on warfarin therapy with supratherapeutic INR. In process of correction, vitamin K was given, FFP was attempted, but they have had transfusion reaction, recommend dose of Kcentra. 3. History of diverticulosis. Last colonoscopy in 2009. [id number]/[facility] #: [id number] [facility]
[2019-01-18] MEDS: NS 0.9% 1000 ML** 1,000 ML IV SCH (18:01)
[2019-01-18] MEDS: Atorvastatin* 80 MG TAB PO SCH (20:18)
[2019-01-19] MEDS: Patiromer POWDER* 8.4 GM PAK PO SCH ×3 (00:11→17:59)
[2019-01-19] MEDS: Polymyx/Trimethoprim OPTH* 10 ML BTL LEFT EYE SCH ×8 (00:11→22:04)
[2019-01-19 03:05] LABS: ABS Basophils 0 10^3/ul (0-0.2); ABS Eosinophils 0.1 10^3/ul (0-0.6); ABS Lymphocytes 2.5 10^3/ul (1.0-4.8); ABS Monocytes 1.4 10^3/ul (0-0.8); ABS Neutrophils 7.9 10^3/ul (1.5-7.7); ABS Nucleated RBC 0 10^3/ul; Eosinophil % 0.5 %; Hematocrit 21 % (36-46); Hemoglobin 7.3 g/dL (14.0-18.0); Lymphocyte % 20.7 %; Mean Corpuscular HGB Conc 34 g/dL (31-36); Mean Corpuscular Hemoglobin 29 pg (27-31); Mean Corpuscular Volume 85 fL (80-94); Mean Platelet Volume 7.8 fL (7.4-10.4); Nucleated Red Blood Cells % 0.1; Platelet Count 105 10^3/uL (150-450); Red Blood Count 2.53 10^6 /uL (4.18-5.48); Red Cell Distribution Width 16 % (10.5-15); White Blood Count 11.9 10^3/uL (3.5-10.8)
[2019-01-19 03:25] LABS: BUN/Creatinine Ratio 13.4 (8-20); Calcium 7.3 mg/dL (8.6-10.3); EGFR African American 20.3 (>60); EGFR Non-African American 16.8 (>60)
[2019-01-19 03:27] LABS: Potassium 5.9 mmol/L (3.5-5.0)
[2019-01-19] MEDS: Levothyroxine TAB* 50 MCG TAB PO SCH (05:59)
[2019-01-19 06:17] LABS: ABS Basophils 0.1 10^3/ul (0-0.2); ABS Eosinophils 0.1 10^3/ul (0-0.6); ABS Lymphocytes 2.4 10^3/ul (1.0-4.8); ABS Monocytes 1.5 10^3/ul (0-0.8); ABS Nucleated RBC 0 10^3/ul; Eosinophil % 0.8 %; Hematocrit 21 % (36-46); Hemoglobin 7.1 g/dL (14.0-18.0); Lymphocyte % 19.8 %; Mean Corpuscular HGB Conc 34 g/dL (31-36); Mean Corpuscular Hemoglobin 29 pg (27-31); Mean Corpuscular Volume 84 fL (80-94); Mean Platelet Volume 8.4 fL (7.4-10.4); Nucleated Red Blood Cells % 0.1; Platelet Count 108 10^3/uL (150-450); Red Blood Count 2.48 10^6 /uL (4.18-5.48); Red Cell Distribution Width 17 % (10.5-15); White Blood Count 12.1 10^3/uL (3.5-10.8)
[2019-01-19 06:27] LABS: INR 1.19 (0.77-1.02)
[2019-01-19 06:41] LABS: Calcium 7.3 mg/dL (8.6-10.3); Potassium 5.5 mmol/L (3.5-5.0)
[2019-01-19 06:46] LABS: BUN/Creatinine Ratio 14.2 (8-20); EGFR African American 21.1 (>60); EGFR Non-African American 17.5 (>60)
[2019-01-19] MEDS ORDERED: Dextrose 50% Syringe 50 ML* 25 GM/50 ML SYRINGE IV PUSH PRN (08:09)
--- NOTE | 2019-01-19 08:20 | PN ---
Subjective Date of Service: 01/19/19 Interval History: Not hungry. No pain. Last BM 10 hrs ago. Objective Active Medications: Acetaminophen (Tylenol Tab*) 650 mg PO Q4H PRN PRN Reason: FEVER/PAIN Al Hydrox/Mg Hydrox/Simethicone (Maalox Plus*) 30 ml PO Q6H PRN PRN Reason: INDIGESTION Atorvastatin Calcium (Lipitor*) 80 mg PO 1700 [facility] Last Admin: 01/18/19 20:18 Dose: 80 mg Carvedilol (Coreg Tab*) 3.125 mg PO BID [facility] Last Admin: 01/18/19 20:15 Dose: 3.125 mg Dextrose (D50w Syringe 50 Ml*) 12.5 gm IV PUSH .FOR FS < 60 - SS PRN PRN Reason: FS < 60 Ferrous Sulfate (Ferrous Sulfate Tab*) 325 mg PO BID [facility] Last Admin: 01/18/19 20:15 Dose: 325 mg Sodium Chloride (Ns 0.9% 1000 Ml) 1,000 mls @ 75 mls/hr IV PER RATE [facility] Last Admin: 01/18/19 18:01 Dose: 75 mls/hr Insulin Human Lispro (Humalog*) 0 units SUBCUT ACHS [facility]; Protocol Levothyroxine Sodium (Synthroid Tab*) 50 mcg PO DAILY@0600 [facility] Last Admin: 01/19/19 05:59 Dose: 50 mcg Ondansetron HCl (Zofran Inj*) 4 mg IV Q4H PRN PRN Reason: NAUSEA/VOMITING Pantoprazole Sodium (Protonix Tab*) 40 mg PO DAILY [facility] Last Admin: 01/18/19 09:39 Dose: 40 mg Patiromer (Veltassa Powder*) 8.4 gm PO 0000,1200,1800 [facility] Last Admin: 01/19/19 00:11 Dose: 8.4 gm Polymyxin/Trimethoprim Sulfate (Polytrim Ophth*) 1 drop LEFT EYE Q3H [facility] Last Admin: 01/19/19 05:59 Dose: 1 drop Sodium Bicarbonate (Sodium Bicarbonate (Antacid)*) 650 mg PO BID [facility] Last Admin: 01/18/19 20:15 Dose: 650 mg Vital Signs - 8 hr 01/19/19 01/19/19 01/19/19 01:54 05:30 07:14 Temperature 99.0 F 98.4 F 98.0 F Pulse Rate 95 115 95 Respiratory 20 18 18 Rate Blood Pressure 132/71 126/79 125/57 (mmHg) O2 Sat by Pulse 98 97 98 Oximetry 01/19/19 07:39 Temperature Pulse Rate Respiratory 18 Rate Blood Pressure (mmHg) O2 Sat by Pulse Oximetry Oxygen Devices in Use Now: None Appearance: Alert, partly up in bed. In good spirits. Looks comfortable. Respiratory: Symmetrical Chest Expansion and Respiratory Effort, Clear to Auscultation, Clear to Percussion Cardiovascular: NL Sounds; No Murmurs; No JVD, RRR, No Edema, - - PPM L subclavicular area Abdominal: NL Sounds; No Tenderness; No Distention, No Hepatosplenomegaly, - Extremities: No Edema, No Clubbing, Cyanosis, - Skin: No Rash or Ulcers, No Nodules or Sclerosis, - Neurological: Alert and Oriented x 3, NL Sensation Result Diagrams: 01/19/19 05:49 01/19/19 05:49 Microbiology and Other Data: Microbiology 01/18/19 00:29 Transfusion Reaction Gram Stain - Final Blood Bag Assess/Plan/Problems-Billing Assessment: - Patient Problems (1) GI bleed Current Visit: Yes Status: Acute Code(s): K92.2 - GASTROINTESTINAL HEMORRHAGE, UNSPECIFIED SNOMED Code(s): 75552935 Comment: BRBPR. Received 4U PRBC's by 01/19 AM, 1 U FFP. Allergic reaction to FFP, Blood Bank staff recommend diphenhydramine ebefore FFP for him. CBC 11 AM 01/18. Discussed with Dr. Jeffers. CBC, INR 45. Received 5 mg vit K 01/18, Kcentra 2152 U 01/18. Hgb 7.1 01/19. (2) CKD (chronic kidney disease) Current Visit: Yes Status: Acute Code(s): N18.9 - CHRONIC KIDNEY DISEASE, UNSPECIFIED SNOMED Code(s): 932748506 Comment: Est GFR 20.5 01/18/19, 17.5 01/19/19. (3) Diabetes Current Visit: Yes Status: Acute Code(s): E11.9 - TYPE 2 DIABETES MELLITUS WITHOUT COMPLICATIONS SNOMED Code(s): 66069622 Comment: Metformin, glyburide on hold. SSI. (4) Hypothyroid Current Visit: Yes Status: Acute Code(s): E03.9 - HYPOTHYROIDISM, UNSPECIFIED SNOMED Code(s): 64906792 Comment: TSH wnl 11/14/18. (5) CAD (coronary artery disease) Current Visit: Yes Status: Acute Code(s): I25.10 - ATHSCL HEART DISEASE OF [place] CORONARY ARTERY W/O ANG PCTRS SNOMED Code(s): 35669099 Comment: Continue carvedilol, statin. Resume ASA when appropriate. (6) Mural thrombus of cardiac apex Current Visit: Yes Status: Acute Code(s): I51.3 - INTRACARDIAC THROMBOSIS, NOT ELSEWHERE CLASSIFIED SNOMED Code(s): 48681400 Comment: Reported by Dr. 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 On warfarin since then. Warfarin now on hold. Echo done 12/2018 showed nl LVEF.
[2019-01-19] MEDS: Insulin LISPRO* 1 UNITS UNIT SUBCUT SCH ×4 (09:19→20:34)
[2019-01-19] MEDS: Ferrous Sulfate TAB* 325 MG PO SCH ×2 (10:27→19:58)
[2019-01-19] MEDS: Sodium Bicarbonate (ANTACID)* 650 MG TAB PO SCH ×2 (10:27→19:58)
[2019-01-19] MEDS: Carvedilol TAB* 3.125 MG PO SCH ×2 (10:27→19:58)
[2019-01-19] MEDS: NS 0.9% 1000 ML** 1,000 ML IV SCH (10:28)
[2019-01-19] MEDS: Pantoprazole TAB * 40 MG TAB PO SCH (10:28)
[2019-01-19] MEDS ORDERED: Insulin LISPRO* 1 UNITS UNIT SUBCUT SCH (11:30)
--- NOTE | 2019-01-19 15:00 | PN ---
Progress Note - Progress Note Date of Service: 01/19/19 Note: Brief GI Progress Note INR corrected. Hct now stable at 21 x2. No further rectal bleeding. Discussed case with nursing and Dr Michaels. VSS. Patient sleeping. NAD. Imp: 83yM with multiple medical co-morbidities, including heart disease and CKD , who is admitted with hematochezia and anemia in setting of anticoagulation. Received several units of blood transfusions. Anticoagulation has been reversed. Rectal bleeding appears to have stopped. Hct now stable x2. Presentation suggestive of lower GI bleeding source. Diverticular bleeding possible given presentation (mild sigmoid diverticulosis seen on colonoscopy in 2009). Patient did have multiple small adenomatous polyps removed at last colonoscopy, so a large polyp or mass is possible. However, it would be atypical for a polyp or mass to present with such acute bleeding, particularly without evidence of chronic blood loss (MCV is normal arguing against significant iron deficiency). Less likely upper GI bleed given absence of melena on history. BUN elevated, but this is in setting of CKD. Currently stable without ongoing bleeding. Would recommend close monitoring for now. Transfuse per primary team, may require higher goal Hgb given cardiac disease. Recommend careful evaluation regarding ongoing need for anticoagulation in this patient. If it is felt that patient needs to be on anticoagulation going forward, then we should discuss if colonoscopy to evaluate for any possible source of bleeding should be pursued. Patient is at modestly increased risk for colonoscopy procedure (and prep) given his underlying medical comorbidities and advanced age (83). Please notify GI if any acute clinical change. Va Orr MD Gastroenterology
[2019-01-19] MEDS: Atorvastatin* 80 MG TAB PO SCH (17:59)
[2019-01-19 22:38] LABS: Hematocrit 19 % (36-46); Hemoglobin 6.5 g/dL (14.0-18.0); Mean Corpuscular HGB Conc 34 g/dL (31-36); Mean Corpuscular Hemoglobin 29 pg (27-31); Mean Corpuscular Volume 85 fL (80-94); Mean Platelet Volume 8.1 fL (7.4-10.4); Platelet Count 105 10^3/uL (150-450); Red Blood Count 2.22 10^6 /uL (4.18-5.48); Red Cell Distribution Width 17 % (10.5-15)
[2019-01-19 22:40] LABS: INR 1.24 (0.77-1.02)
--- NOTE | 2019-01-19 23:04 | PN ---
Hospitalist Progress Note Date of Service: 01/19/19 Severiano called for a large tarry bowel movement. BP 124/54, HR 87. I requested a second peripheral IV. Stat hgb is 6.5. 1U PRBCs ordered.
[2019-01-20] MEDS: Polymyx/Trimethoprim OPTH* 10 ML BTL LEFT EYE SCH ×8 (01:25→23:26)
[2019-01-20] MEDS: Patiromer POWDER* 8.4 GM PAK PO SCH ×3 (01:25→17:20)
[2019-01-20] MEDS: NS 0.9% 1000 ML** 1,000 ML IV SCH (05:05)
[2019-01-20] MEDS: Levothyroxine TAB* 50 MCG TAB PO SCH (05:07)
[2019-01-20 07:12] LABS: Hematocrit 23 % (36-46); Hemoglobin 7.8 g/dL (14.0-18.0); Mean Corpuscular HGB Conc 35 g/dL (31-36); Mean Corpuscular Hemoglobin 30 pg (27-31); Mean Corpuscular Volume 88 fL (80-94); Mean Platelet Volume 8.3 fL (7.4-10.4); Platelet Count 106 10^3/uL (150-450); Red Blood Count 2.56 10^6 /uL (4.18-5.48); Red Cell Distribution Width 19 % (10.5-15); White Blood Count 10.9 10^3/uL (3.5-10.8)
[2019-01-20] MEDS: Insulin LISPRO* 1 UNITS UNIT SUBCUT SCH ×4 (07:38→21:44)
[2019-01-20] MEDS: Sodium Bicarbonate (ANTACID)* 650 MG TAB PO SCH ×3 (10:02→21:45)
[2019-01-20] MEDS: Pantoprazole TAB * 40 MG TAB PO SCH (10:02)
[2019-01-20] MEDS: Carvedilol TAB* 3.125 MG PO SCH ×2 (10:02→21:44)
[2019-01-20] MEDS: Ferrous Sulfate TAB* 325 MG PO SCH ×3 (10:02→21:44)
--- NOTE | 2019-01-20 11:33 | PN ---
Subjective Date of Service: 01/20/19 Interval History: Patient very insistent on going home. at bedside tells him he can't go home today. Objective Active Medications: Acetaminophen (Tylenol Tab*) 650 mg PO Q4H PRN PRN Reason: FEVER/PAIN Al Hydrox/Mg Hydrox/Simethicone (Maalox Plus*) 30 ml PO Q6H PRN PRN Reason: INDIGESTION Atorvastatin Calcium (Lipitor*) 80 mg PO 1700 [facility] Last Admin: 01/19/19 17:59 Dose: 80 mg Carvedilol (Coreg Tab*) 3.125 mg PO BID [facility] Last Admin: 01/20/19 10:02 Dose: 3.125 mg Dextrose (D50w Syringe 50 Ml*) 12.5 gm IV PUSH .FOR FS < 60 - SS PRN PRN Reason: FS < 60 Ferrous Sulfate (Ferrous Sulfate Tab*) 325 mg PO BID [facility] Last Admin: 01/20/19 10:02 Dose: Not Given Sodium Chloride (Ns 0.9% 1000 Ml) 1,000 mls @ 75 mls/hr IV PER RATE [facility] Last Admin: 01/20/19 05:05 Dose: 75 mls/hr Pantoprazole Sodium (Protonix Iv Bag*) 80 mg in 250 mls @ 25 mls/hr IVPB Q10H [facility] Insulin Human Lispro (Humalog*) 0 units SUBCUT ACHS [facility]; Protocol Last Admin: 01/20/19 07:38 Dose: Not Given Levothyroxine Sodium (Synthroid Tab*) 50 mcg PO DAILY@0600 [facility] Last Admin: 01/20/19 05:07 Dose: 50 mcg Ondansetron HCl (Zofran Inj*) 4 mg IV Q4H PRN PRN Reason: NAUSEA/VOMITING Pantoprazole Sodium (Protonix Iv*) 40 mg IV ONCE ONE Stop: 01/21/19 10:47 Patiromer (Veltassa Powder*) 8.4 gm PO 0000,1200,1800 [facility] Last Admin: 01/20/19 01:25 Dose: 8.4 gm Polymyxin/Trimethoprim Sulfate (Polytrim Ophth*) 1 drop LEFT EYE Q3H [facility] Last Admin: 01/20/19 10:02 Dose: 1 drop Sodium Bicarbonate (Sodium Bicarbonate (Antacid)*) 650 mg PO BID [facility] Last Admin: 01/20/19 10:02 Dose: Not Given Vital Signs - 8 hr 01/20/19 01/20/19 07:15 08:00 Temperature 97.7 F Pulse Rate 82 Respiratory 20 20 Rate Blood Pressure 123/49 (mmHg) O2 Sat by Pulse 98 Oximetry Oxygen Devices in Use Now: None Appearance: Alert, partly up in bed. Upset about not being allowed to leave, otherwise seems comfortable. Eyes: No Scleral Icterus Abdominal: NL Sounds; No Tenderness; No Distention, No Hepatosplenomegaly, - - obese Extremities: No Edema, No Clubbing, Cyanosis, - Skin: No Rash or Ulcers, No Nodules or Sclerosis, - Neurological: Alert and Oriented x 3, NL Sensation Result Diagrams: 01/20/19 06:34 01/19/19 05:49 Microbiology and Other Data: Microbiology 01/18/19 00:29 Transfusion Reaction Gram Stain - Final Blood Bag Assess/Plan/Problems-Billing Assessment: - Patient Problems (1) GI bleed Current Visit: Yes Status: Acute Code(s): K92.2 - GASTROINTESTINAL HEMORRHAGE, UNSPECIFIED SNOMED Code(s): 79659109 Comment: BRBPR. Received 5U PRBC's by 46 AM, 1 U FFP. Allergic reaction to FFP, Blood Bank staff recommend diphenhydramine ebefore FFP for him. Discussed again with Dr. Jeffers on 01/20/19. CBC, BMP /. Received 5 mg vit K 01/18, Kcentra 2152 U 01/18. Start PPI drip 01/20. (2) CKD (chronic kidney disease) Current Visit: Yes Status: Acute Code(s): N18.9 - CHRONIC KIDNEY DISEASE, UNSPECIFIED SNOMED Code(s): 901329081 Comment: Est GFR 20.5 01/18/19, 17.5 01/19/19. BMP 01/21. (3) Diabetes Current Visit: Yes Status: Acute Code(s): E11.9 - TYPE 2 DIABETES MELLITUS WITHOUT COMPLICATIONS SNOMED Code(s): 14418817 Comment: Metformin, glyburide on hold. SSI. Requires only small amounts of insulin. (4) Hypothyroid Current Visit: Yes Status: Acute Code(s): E03.9 - HYPOTHYROIDISM, UNSPECIFIED SNOMED Code(s): 22425012 Comment: TSH wnl 11/14/18. (5) CAD (coronary artery disease) Current Visit: Yes Status: Acute Code(s): I25.10 - ATHSCL HEART DISEASE OF [place] CORONARY ARTERY W/O ANG PCTRS SNOMED Code(s): 49817098 Comment: Continue carvedilol, statin. Resume ASA when appropriate. (6) Mural thrombus of cardiac apex Current Visit: Yes Status: Acute Code(s): I51.3 - INTRACARDIAC THROMBOSIS, NOT ELSEWHERE CLASSIFIED SNOMED Code(s): 28555783 Comment: Reported by Dr. 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 On warfarin since then. Warfarin now on hold. Echo done 12/2018 showed nl LVEF.
[2019-01-20] MEDS: Pantoprazole* 80 mg IN NS 80 MG/250 ML BAG IVPB SCH ×2 (12:24→23:26)
[2019-01-20] MEDS: Atorvastatin* 80 MG TAB PO SCH (17:14)
[2019-01-21] MEDS: Patiromer POWDER* 8.4 GM PAK PO SCH ×3 (00:42→17:39)
[2019-01-21] MEDS: Polymyx/Trimethoprim OPTH* 10 ML BTL LEFT EYE SCH ×7 (03:47→22:13)
[2019-01-21 06:46] LABS: ABS Basophils 0 10^3/ul (0-0.2); ABS Eosinophils 0.3 10^3/ul (0-0.6); ABS Lymphocytes 1.8 10^3/ul (1.0-4.8); ABS Monocytes 1.1 10^3/ul (0-0.8); ABS Neutrophils 5.9 10^3/ul (1.5-7.7); ABS Nucleated RBC 0 10^3/ul; Eosinophil % 3.3 %; Hematocrit 22 % (36-46); Hemoglobin 7.5 g/dL (14.0-18.0); Lymphocyte % 19.3 %; Mean Corpuscular HGB Conc 35 g/dL (31-36); Mean Corpuscular Hemoglobin 30 pg (27-31); Mean Corpuscular Volume 87 fL (80-94); Mean Platelet Volume 7.8 fL (7.4-10.4); Nucleated Red Blood Cells % 0.1; Platelet Count 114 10^3/uL (150-450); Red Blood Count 2.46 10^6 /uL (4.18-5.48); Red Cell Distribution Width 18 % (10.5-15); White Blood Count 9.2 10^3/uL (3.5-10.8)
[2019-01-21] MEDS: Levothyroxine TAB* 50 MCG TAB PO SCH (06:51)
[2019-01-21 07:03] LABS: BUN/Creatinine Ratio 12.7 (8-20); Calcium 7.6 mg/dL (8.6-10.3); EGFR African American 26.7 (>60); EGFR Non-African American 22.1 (>60); Potassium 4.1 mmol/L (3.5-5.0)
[2019-01-21] MEDS: Insulin LISPRO* 1 UNITS UNIT SUBCUT SCH ×4 (09:13→20:45)
[2019-01-21] MEDS: Ferrous Sulfate TAB* 325 MG PO SCH ×2 (09:14→20:42)
[2019-01-21] MEDS: Sodium Bicarbonate (ANTACID)* 650 MG TAB PO SCH ×2 (09:14→20:42)
[2019-01-21] MEDS: Carvedilol TAB* 3.125 MG PO SCH ×2 (09:14→20:42)
[2019-01-21] MEDS: Pantoprazole* 80 mg IN NS 80 MG/250 ML BAG IVPB SCH ×3 (10:23→20:46)
[2019-01-21] MEDS ORDERED: Pantoprazole IV* 40 MG IV ONE (10:46)
--- NOTE | 2019-01-21 12:36 | PN ---
Progress Note - Progress Note Date of Service: 01/21/19 Note: BRIEF GI FOLLOW-UP NOTE IE/S: Stool on Tuesday night was noted to be tarry and melenic appearing. Stat labs noted Hct 19 (down from 21). VSS. Given 1 unit of blood and started on PPI gtt. FU Hct 23 on Tuesday AM > 22 this AM. There is charting of a stool yesterday evening, but there is no documentation about stool characteristic. Patient reports feeling well. Recalls sense of urgency to have a bowel movement but only passing gas. He does not think he has had a stool recently. O: VSS Pleasant elderly gentleman. Initially appeared quite confused but with conversation became much more lucid. Recalls having had EGD and colonoscopies in the past. He mentions having gone unsedated for procedures. CV: RRR Pulm: Clear in anterior lung chapa. Abd: +BS. Soft, non-tender, non-distended. Labs: WBC 9.2, Hgb 7.5, Hct 22, Plt 114 BUN 35, Cr 2.76 INR 1.24 (10/21) Imp: 83yM with multiple medical co-morbidities, including heart disease and CKD , who is admitted with hematochezia and anemia in setting of anticoagulation. Received 5 units of blood transfusions since admission on 01/18. Anticoagulation has been reversed. Rectal bleeding initially stopped with reversal of anticoagulation, although there was note of a melenic appearing stool on Tuesday evening with accompanying Hct drop. Interestingly, Mr Fernandez does not seem to have had additional episodes of bleeding in past 24-36 hours. Hct stable x 24 hours. Presentation initially suggestive of lower GI bleeding source, although the more recent description of tarry dark stool on Tuesday evening raises concern for upper GI bleeding source. Bleeding is certainly not brisk at present given hemodynamic (and lab) stability and minimal (if any) stool output in past 24 hours. - Recommend close monitoring for now. CBC every 12 hours. Transfuse per primary team, may require higher goal Hgb given cardiac disease. - Please recheck INR with next set of blood work. - Recommend considering work-up of thrombocytopenia, which seems to be a new issue for this patient during this hospitalization. - Recommend careful evaluation regarding ongoing need for anticoagulation in this patient. If it is felt that patient needs to be on anticoagulation going forward, then we would need to discuss inpatient endoscopic evaluation given the multiple transfusions required this hospitalization. [Per my discussion with Dr Michaels this morning, it does not seem as if patient has an absolute indication for anticoagulation at this point. Will need outpatient discussion re : long-term anticoagulation management plan.] - Consider EGD +/- flex sig tomorrow if blood counts and/or bloody stools occur again. NPO after MN in case procedure is needed - Continue IV PPI for now - Anticoagulation on hold Please notify GI if any acute clinical change. Va Orr MD Gastroenterology
--- NOTE | 2019-01-21 13:31 | PN ---
Subjective Date of Service: 01/21/19 Interval History: No new c/o. Objective Active Medications: Acetaminophen (Tylenol Tab*) 650 mg PO Q4H PRN PRN Reason: FEVER/PAIN Al Hydrox/Mg Hydrox/Simethicone (Maalox Plus*) 30 ml PO Q6H PRN PRN Reason: INDIGESTION Atorvastatin Calcium (Lipitor*) 80 mg PO 1700 [facility] Last Admin: 01/20/19 17:14 Dose: 80 mg Carvedilol (Coreg Tab*) 3.125 mg PO BID [facility] Last Admin: 01/21/19 09:14 Dose: 3.125 mg Dextrose (D50w Syringe 50 Ml*) 12.5 gm IV PUSH .FOR FS < 60 - SS PRN PRN Reason: FS < 60 Ferrous Sulfate (Ferrous Sulfate Tab*) 325 mg PO BID [facility] Last Admin: 01/21/19 09:14 Dose: 325 mg Sodium Chloride (Ns 0.9% 1000 Ml) 1,000 mls @ 75 mls/hr IV PER RATE [facility] Last Admin: 01/20/19 05:05 Dose: 75 mls/hr Pantoprazole Sodium (Protonix Iv Bag*) 80 mg in 250 mls @ 25 mls/hr IVPB Q10H [facility] Stop: 01/21/19 20:29 Last Admin: 01/21/19 10:23 Dose: 25 mls/hr Pantoprazole Sodium (Protonix Iv Bag*) 80 mg in 250 mls @ 25 mls/hr IVPB Q10H [facility] Insulin Human Lispro (Humalog*) 0 units SUBCUT ACHS [facility]; Protocol Last Admin: 01/21/19 13:04 Dose: 1 units Levothyroxine Sodium (Synthroid Tab*) 50 mcg PO DAILY@0600 [facility] Last Admin: 01/21/19 06:51 Dose: 50 mcg Ondansetron HCl (Zofran Inj*) 4 mg IV Q4H PRN PRN Reason: NAUSEA/VOMITING Patiromer (Veltassa Powder*) 8.4 gm PO 0000,1200,1800 [facility] Last Admin: 01/21/19 13:03 Dose: 8.4 gm Polymyxin/Trimethoprim Sulfate (Polytrim Ophth*) 1 drop LEFT EYE Q3H [facility] Last Admin: 01/21/19 13:03 Dose: 1 drop Sodium Bicarbonate (Sodium Bicarbonate (Antacid)*) 650 mg PO BID [facility] Last Admin: 01/21/19 09:14 Dose: 650 mg Vital Signs - 8 hr 01/21/19 01/21/19 01/21/19 07:28 08:00 11:40 Temperature 98.3 F 98.5 F Pulse Rate 83 76 Respiratory 16 16 18 Rate Blood Pressure 137/62 124/66 (mmHg) O2 Sat by Pulse 98 100 Oximetry Oxygen Devices in Use Now: None Appearance: Alert, partly up in bed. Irritable but seems comfortable. Eyes: No Scleral Icterus Abdominal: NL Sounds; No Tenderness; No Distention, No Hepatosplenomegaly, - Extremities: No Clubbing, Cyanosis, - - 1+ edema BL--chronic Skin: No Rash or Ulcers, No Nodules or Sclerosis, - Neurological: Alert and Oriented x 3, NL Sensation Result Diagrams: 01/21/19 06:20 01/21/19 06:20 Microbiology and Other Data: Microbiology 01/18/19 00:29 Transfusion Reaction Gram Stain - Final Blood Bag Assess/Plan/Problems-Billing Assessment: - Patient Problems (1) GI bleed Current Visit: Yes Status: Acute Code(s): K92.2 - GASTROINTESTINAL HEMORRHAGE, UNSPECIFIED SNOMED Code(s): 17563736 Comment: BRBPR. Received 5U PRBC's by 4/6 AM, 1 U FFP. Allergic reaction to FFP, Blood Bank staff recommend diphenhydramine ebefore FFP for him. Discussed with Dr. Orr on 01/21/19. CBC 01/22. Received 5 mg vit K 01/18, Kcentra 2152 U 01/18. Started PPI drip 01/20. Possible EGD 01/22. (2) CKD (chronic kidney disease) Current Visit: Yes Status: Acute Code(s): N18.9 - CHRONIC KIDNEY DISEASE, UNSPECIFIED SNOMED Code(s): 573413022 Comment: Est GFR 20.5 on 01/18/19, 17.5 on 01/19/19, 22.1 on 01/21/19. (3) Diabetes Current Visit: Yes Status: Acute Code(s): E11.9 - TYPE 2 DIABETES MELLITUS WITHOUT COMPLICATIONS SNOMED Code(s): 30505457 Comment: Metformin, glyburide on hold. SSI. Requires only small amounts of insulin. (4) Hypothyroid Current Visit: Yes Status: Acute Code(s): E03.9 - HYPOTHYROIDISM, UNSPECIFIED SNOMED Code(s): 37374569 Comment: TSH wnl 11/14/18. (5) CAD (coronary artery disease) Current Visit: Yes Status: Acute Code(s): I25.10 - ATHSCL HEART DISEASE OF [place] CORONARY ARTERY W/O ANG PCTRS SNOMED Code(s): 24878983 Comment: Continue carvedilol, statin. Resume ASA when appropriate. (6) Mural thrombus of cardiac apex Current Visit: Yes Status: Acute Code(s): I51.3 - INTRACARDIAC THROMBOSIS, NOT ELSEWHERE CLASSIFIED SNOMED Code(s): 50012515 Comment: Reported by Dr. 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 On warfarin since then. Warfarin now on hold. Echo done 12/2018 showed nl LVEF.
[2019-01-21] MEDS: NS 0.9% 1000 ML** 1,000 ML IV SCH (15:44)
[2019-01-21] MEDS: Atorvastatin* 80 MG TAB PO SCH (17:05)
--- NOTE | 2019-01-21 22:24 | PN ---
Subjective Date of Service: 01/21/19 Interval History: Pt scheduled for Patiromer TID. Currently Potassium WNL at 4.1. PLAN: -D/C Patiromer -Recheck CBC, BMP in a.m. Objective Active Medications: Acetaminophen (Tylenol Tab*) 650 mg PO Q4H PRN PRN Reason: FEVER/PAIN Al Hydrox/Mg Hydrox/Simethicone (Maalox Plus*) 30 ml PO Q6H PRN PRN Reason: INDIGESTION Atorvastatin Calcium (Lipitor*) 80 mg PO 1700 [facility] Last Admin: 01/21/19 17:05 Dose: 80 mg Carvedilol (Coreg Tab*) 3.125 mg PO BID [facility] Last Admin: 01/21/19 20:42 Dose: 3.125 mg Dextrose (D50w Syringe 50 Ml*) 12.5 gm IV PUSH .FOR FS < 60 - SS PRN PRN Reason: FS < 60 Ferrous Sulfate (Ferrous Sulfate Tab*) 325 mg PO BID [facility] Last Admin: 01/21/19 20:42 Dose: 325 mg Sodium Chloride (Ns 0.9% 1000 Ml) 1,000 mls @ 75 mls/hr IV PER RATE [facility] Last Admin: 01/21/19 15:44 Dose: 75 mls/hr Pantoprazole Sodium (Protonix Iv Bag*) 80 mg in 250 mls @ 25 mls/hr IVPB Q10H [facility] Last Admin: 01/21/19 20:46 Dose: 25 mls/hr Insulin Human Lispro (Humalog*) 0 units SUBCUT ACHS [facility]; Protocol Last Admin: 01/21/19 20:45 Dose: 1 units Levothyroxine Sodium (Synthroid Tab*) 50 mcg PO DAILY@0600 [facility] Last Admin: 01/21/19 06:51 Dose: 50 mcg Ondansetron HCl (Zofran Inj*) 4 mg IV Q4H PRN PRN Reason: NAUSEA/VOMITING Patiromer (Veltassa Powder*) 8.4 gm PO 0000,1200,1800 [facility] Last Admin: 01/21/19 17:39 Dose: 8.4 gm Polymyxin/Trimethoprim Sulfate (Polytrim Ophth*) 1 drop LEFT EYE Q3H [facility] Last Admin: 01/21/19 22:13 Dose: Not Given Sodium Bicarbonate (Sodium Bicarbonate (Antacid)*) 650 mg PO BID [facility] Last Admin: 01/21/19 20:42 Dose: Not Given Vital Signs - 8 hr 01/21/19 01/21/19 01/21/19 15:58 20:56 21:00 Temperature 98.3 F 98.7 F Pulse Rate 66 81 Respiratory 22 18 22 Rate Blood Pressure 127/57 121/58 (mmHg) O2 Sat by Pulse 99 97 Oximetry Oxygen Devices in Use Now: None Result Diagrams: 01/21/19 06:20 01/21/19 06:20 Microbiology and Other Data: Microbiology 01/18/19 00:29 Transfusion Reaction Gram Stain - Final Blood Bag Assess/Plan/Problems-Billing Assessment:
[2019-01-22] MEDS: Polymyx/Trimethoprim OPTH* 10 ML BTL LEFT EYE SCH ×8 (00:56→21:43)
[2019-01-22] MEDS: Levothyroxine TAB* 50 MCG TAB PO SCH (05:27)
[2019-01-22 06:50] LABS: ABS Basophils 0.1 10^3/ul (0-0.2); ABS Eosinophils 0.3 10^3/ul (0-0.6); ABS Lymphocytes 1.4 10^3/ul (1.0-4.8); ABS Monocytes 1.4 10^3/ul (0-0.8); ABS Nucleated RBC 0 10^3/ul; Eosinophil % 2.7 %; Hematocrit 24 % (36-46); Hemoglobin 8.2 g/dL (14.0-18.0); Lymphocyte % 12.7 %; Mean Corpuscular HGB Conc 34 g/dL (31-36); Mean Corpuscular Hemoglobin 30 pg (27-31); Mean Corpuscular Volume 89 fL (80-94); Mean Platelet Volume 7.7 fL (7.4-10.4); Nucleated Red Blood Cells % 0; Platelet Count 152 10^3/uL (150-450); Red Blood Count 2.73 10^6 /uL (4.18-5.48); Red Cell Distribution Width 18 % (10.5-15); White Blood Count 11.2 10^3/uL (3.5-10.8)
[2019-01-22 07:14] LABS: BUN/Creatinine Ratio 11.2 (8-20); Calcium 7.9 mg/dL (8.6-10.3); EGFR African American 29.9 (>60); EGFR Non-African American 24.7 (>60); Potassium 4.1 mmol/L (3.5-5.0)
[2019-01-22] MEDS: Insulin LISPRO* 1 UNITS UNIT SUBCUT SCH ×4 (09:12→21:34)
[2019-01-22] MEDS: Ferrous Sulfate TAB* 325 MG PO SCH ×2 (09:15→21:33)
[2019-01-22] MEDS: Sodium Bicarbonate (ANTACID)* 650 MG TAB PO SCH ×2 (09:15→21:33)
[2019-01-22] MEDS: Carvedilol TAB* 3.125 MG PO SCH ×2 (09:16→21:33)
[2019-01-22] MEDS: Pantoprazole* 80 mg IN NS 80 MG/250 ML BAG IVPB SCH ×2 (09:16→20:03)
[2019-01-22] MEDS: NS 0.9% 1000 ML** 1,000 ML IV SCH (09:21)
[2019-01-22] MEDS: Atorvastatin* 80 MG TAB PO SCH (17:58)
--- NOTE | 2019-01-22 18:24 | PN ---
Subjective Date of Service: 01/22/19 Interval History: No pain. Appetite OK. No new c/o. Objective Active Medications: Acetaminophen (Tylenol Tab*) 650 mg PO Q4H PRN PRN Reason: FEVER/PAIN Al Hydrox/Mg Hydrox/Simethicone (Maalox Plus*) 30 ml PO Q6H PRN PRN Reason: INDIGESTION Atorvastatin Calcium (Lipitor*) 80 mg PO 1700 [facility] Last Admin: 01/22/19 17:58 Dose: 80 mg Carvedilol (Coreg Tab*) 3.125 mg PO BID [facility] Last Admin: 01/22/19 09:16 Dose: 3.125 mg Dextrose (D50w Syringe 50 Ml*) 12.5 gm IV PUSH .FOR FS < 60 - SS PRN PRN Reason: FS < 60 Ferrous Sulfate (Ferrous Sulfate Tab*) 325 mg PO BID [facility] Last Admin: 01/22/19 09:15 Dose: 325 mg Sodium Chloride (Ns 0.9% 1000 Ml) 1,000 mls @ 75 mls/hr IV PER RATE [facility] Last Admin: 01/22/19 09:21 Dose: 75 mls/hr Pantoprazole Sodium (Protonix Iv Bag*) 80 mg in 250 mls @ 25 mls/hr IVPB Q10H [facility] Last Admin: 01/22/19 09:16 Dose: 25 mls/hr Insulin Human Lispro (Humalog*) 0 units SUBCUT ACHS [facility]; Protocol Last Admin: 01/22/19 17:57 Dose: 2 units Levothyroxine Sodium (Synthroid Tab*) 50 mcg PO DAILY@0600 [facility] Last Admin: 01/22/19 05:27 Dose: 50 mcg Ondansetron HCl (Zofran Inj*) 4 mg IV Q4H PRN PRN Reason: NAUSEA/VOMITING Polymyxin/Trimethoprim Sulfate (Polytrim Ophth*) 1 drop LEFT EYE Q3H [facility] Last Admin: 01/22/19 17:20 Dose: 1 drop Sodium Bicarbonate (Sodium Bicarbonate (Antacid)*) 650 mg PO BID [facility] Last Admin: 01/22/19 09:15 Dose: 650 mg Vital Signs - 8 hr 01/22/19 12:02 Temperature 97.9 F Pulse Rate 84 Respiratory 21 Rate Blood Pressure 107/57 (mmHg) O2 Sat by Pulse 99 Oximetry Oxygen Devices in Use Now: None Appearance: Alert, partly up in bed. In good spirits. Looks comfortable. Eyes: No Scleral Icterus Respiratory: Symmetrical Chest Expansion and Respiratory Effort, Clear to Auscultation, Clear to Percussion Cardiovascular: NL Sounds; No Murmurs; No JVD, RRR, No Edema, - Extremities: No Clubbing, Cyanosis, - - 1+ edema BL (chronic) Skin: No Rash or Ulcers, No Nodules or Sclerosis Neurological: Alert and Oriented x 3, NL Sensation Result Diagrams: 01/22/19 06:29 01/22/19 06:29 Microbiology and Other Data: Microbiology 01/18/19 00:29 Transfusion Reaction Gram Stain - Final Blood Bag Assess/Plan/Problems-Billing Assessment: - Patient Problems (1) GI bleed Current Visit: Yes Status: Acute Code(s): K92.2 - GASTROINTESTINAL HEMORRHAGE, UNSPECIFIED SNOMED Code(s): 47079735 Comment: BRBPR. Received 5U PRBC's by 4/6 AM, 1 U FFP. Allergic reaction to FFP, Blood Bank staff recommend diphenhydramine ebefore FFP for him. Discussed with Dr. Orr on 01/21/19. CBC 01/22. Received 5 mg vit K 01/18, Kcentra 2152 U 01/18. Started PPI drip 01/20. EGD planned for 01/23. (2) CKD (chronic kidney disease) Current Visit: Yes Status: Acute Code(s): N18.9 - CHRONIC KIDNEY DISEASE, UNSPECIFIED SNOMED Code(s): 607840899 Comment: Est GFR 20.5 on 01/18/19, 17.5 on 01/19/19, 22.1 on 01/21/19, 24.7 on . (3) Diabetes Current Visit: Yes Status: Acute Code(s): E11.9 - TYPE 2 DIABETES MELLITUS WITHOUT COMPLICATIONS SNOMED Code(s): 22897901 Comment: Metformin, glyburide on hold. SSI. Requires only small amounts of insulin. (4) Hypothyroid Current Visit: Yes Status: Acute Code(s): E03.9 - HYPOTHYROIDISM, UNSPECIFIED SNOMED Code(s): 06663154 Comment: TSH wnl 11/14/18. (5) CAD (coronary artery disease) Current Visit: Yes Status: Acute Code(s): I25.10 - ATHSCL HEART DISEASE OF [place] CORONARY ARTERY W/O ANG PCTRS SNOMED Code(s): 30939344 Comment: Continue carvedilol, statin. Resume ASA when appropriate. (6) Mural thrombus of cardiac apex Current Visit: Yes Status: Acute Code(s): I51.3 - INTRACARDIAC THROMBOSIS, NOT ELSEWHERE CLASSIFIED SNOMED Code(s): 40174426 Comment: Reported by Dr. 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 On warfarin since then. Warfarin now on hold. Echo done 12/2018 showed nl LVEF.
[2019-01-23] MEDS: Polymyx/Trimethoprim OPTH* 10 ML BTL LEFT EYE SCH ×8 (01:05→21:26)
[2019-01-23] MEDS: Pantoprazole* 80 mg IN NS 80 MG/250 ML BAG IVPB SCH ×3 (04:44→10:57)
[2019-01-23] MEDS: Levothyroxine TAB* 50 MCG TAB PO SCH (06:57)
[2019-01-23] MEDS: Insulin LISPRO* 1 UNITS UNIT SUBCUT SCH ×4 (08:42→19:52)
[2019-01-23] MEDS: Ferrous Sulfate TAB* 325 MG PO SCH ×2 (09:52→19:40)
[2019-01-23] MEDS: Sodium Bicarbonate (ANTACID)* 650 MG TAB PO SCH ×2 (09:52→19:40)
[2019-01-23] MEDS: Carvedilol TAB* 3.125 MG PO SCH ×2 (09:52→19:40)
[2019-01-23 13:20] LABS: Lymphocytes % 14 %; Monocytes % 9 %; Neutrophil % 72 %
[2019-01-23 13:26] LABS: Acanthocytes 1+; Burr Cells 1+
[2019-01-23 13:28] LABS: Hematocrit 19 % (36-46); Hemoglobin 7.2 g/dL (14.0-18.0); Mean Corpuscular Hemoglobin 34 pg (27-31); Mean Corpuscular Volume 90 fL (80-94); White Blood Count 8.9 10^3/uL (3.5-10.8)
[2019-01-23 13:29] LABS: Mean Corpuscular HGB Conc 38 g/dL (31-36); Mean Platelet Volume 8.1 fL (7.4-10.4); Platelet Count 249 10^3/uL (150-450); Red Cell Distribution Width 19 % (10.5-15)
[2019-01-23 13:32] LABS: ABS Neutrophils 6.4 10^3/ul (1.5-7.7)
[2019-01-23 13:33] LABS: ABS Eosinophils 0.4 10^3/ul (0-0.6)
--- NOTE | 2019-01-23 15:52 | PN ---
Subjective Date of Service: 01/23/19 Interval History: Patient seen this afternoon, still very weak and pale. Awaiting to go for EGD this afernoon. On protonix drip and IVF. Remains NPO for the procedure Past Medical History: Unchanged from Admission Objective Active Medications: Acetaminophen (Tylenol Tab*) 650 mg PO Q4H PRN PRN Reason: FEVER/PAIN Al Hydrox/Mg Hydrox/Simethicone (Maalox Plus*) 30 ml PO Q6H PRN PRN Reason: INDIGESTION Atorvastatin Calcium (Lipitor*) 80 mg PO 1700 [facility] Last Admin: 01/22/19 17:58 Dose: 80 mg Carvedilol (Coreg Tab*) 3.125 mg PO BID [facility] Last Admin: 01/23/19 09:52 Dose: 3.125 mg Dextrose (D50w Syringe 50 Ml*) 12.5 gm IV PUSH .FOR FS < 60 - SS PRN PRN Reason: FS < 60 Ferrous Sulfate (Ferrous Sulfate Tab*) 325 mg PO BID [facility] Last Admin: 01/23/19 09:52 Dose: 325 mg Sodium Chloride (Ns 0.9% 1000 Ml) 1,000 mls @ 75 mls/hr IV PER RATE [facility] Last Admin: 01/22/19 09:21 Dose: 75 mls/hr Pantoprazole Sodium (Protonix Iv Bag*) 80 mg in 250 mls @ 25 mls/hr IVPB Q10H [facility] Last Admin: 01/23/19 10:57 Dose: Not Given Insulin Human Lispro (Humalog*) 0 units SUBCUT ACHS [facility]; Protocol Last Admin: 01/23/19 12:08 Dose: Not Given Levothyroxine Sodium (Synthroid Tab*) 50 mcg PO DAILY@0600 [facility] Last Admin: 01/23/19 06:57 Dose: 50 mcg Ondansetron HCl (Zofran Inj*) 4 mg IV Q4H PRN PRN Reason: NAUSEA/VOMITING Polymyxin/Trimethoprim Sulfate (Polytrim Ophth*) 1 drop LEFT EYE Q3H [facility] Last Admin: 01/23/19 12:35 Dose: 1 drop Sodium Bicarbonate (Sodium Bicarbonate (Antacid)*) 650 mg PO BID [facility] Last Admin: 01/23/19 09:52 Dose: 650 mg Tamsulosin HCl (Flomax Cap*) 0.4 mg PO BEDTIME [facility] Vital Signs - 8 hr 01/23/19 01/23/19 08:00 11:28 Temperature 97.8 F Pulse Rate 74 Respiratory 18 20 Rate Blood Pressure 104/45 (mmHg) O2 Sat by Pulse 98 Oximetry Oxygen Devices in Use Now: None Appearance: pale, pleasant Eyes: No Scleral Icterus, - - EOMI Ears/Nose/Mouth/Throat: NL Teeth, Lips, Gums, Mucous Membranes Moist Neck: NL Appearance and Movements; NL JVP, Trachea Midline Respiratory: Symmetrical Chest Expansion and Respiratory Effort Abdominal: NL Sounds; No Tenderness; No Distention Extremities: - - Edema + 2 bilateral Neurological: Alert and Oriented x 3, - - generalized weakness Result Diagrams: 01/23/19 07:47 01/22/19 06:29 Microbiology and Other Data: Microbiology 01/18/19 00:29 Transfusion Reaction Gram Stain - Final Blood Bag Assess/Plan/Problems-Billing Assessment: 83 year old male presented for weakness and BRBPR on chronic warfarin, which was reversed and recieved so far total of 5 units of PRBC's as of 02/02/19 - Patient Problems (1) Acute blood loss anemia Current Visit: Yes Status: Acute Code(s): D62 - ACUTE POSTHEMORRHAGIC ANEMIA SNOMED Code(s): 865414952 Comment: - From GI bleed BRBPR and melena - Received 5U PRBC's by 4/6 AM, 1 U FFP. Allergic reaction to FFP, Blood Bank staff recommend diphenhydramine before FFP for him. Received 5 mg vit K 4/4, Kcentra. - continue PPI drip 6. EGD/Flex sig today 01/23. - His Hct down to 19 this morning. I will place one more unit today 02/02/19 and rechec around 10 pm if not improved will give second units overnight as well (2) GI bleed Current Visit: Yes Status: Acute Code(s): K92.2 - GASTROINTESTINAL HEMORRHAGE, UNSPECIFIED SNOMED Code(s): 66078317 Comment: - BRBPR. Received 5U PRBC's by 4/6 AM, 1 U FFP. Allergic reaction to FFP, Blood Bank staff recommend diphenhydramine before FFP for him. Received 5 mg vit K 4/4, Kcentra. - continue PPI drip /6. EGD/Flex sig today . - His Hct down to 19 this morning. I will place one more unit today 02/02/19 and rechec around 10 pm if not improved will give second units overnight as well (3) CAD (coronary artery disease) Current Visit: Yes Status: Acute Code(s): I25.10 - ATHSCL HEART DISEASE OF [place] CORONARY ARTERY W/O ANG PCTRS SNOMED Code(s): 29686487 Comment: - Continue carvedilol 3.125 mg bid; statin. Resume ASA when appropriate, given his active acute anemia will keep it hold pending GI assessment (4) CKD (chronic kidney disease) Current Visit: Yes Status: Acute Code(s): N18.9 - CHRONIC KIDNEY DISEASE, UNSPECIFIED SNOMED Code(s): 074159807 Comment: - Plateau Cr at 2.5'sh. Will recheck in am. Avoid nephrotoxic drug (5) Diabetes Current Visit: Yes Status: Acute Code(s): E11.9 - TYPE 2 DIABETES MELLITUS WITHOUT COMPLICATIONS SNOMED Code(s): 37678399 Comment: - Metformin, glyburide on hold. SSI. (6) Hypothyroid Current Visit: Yes Status: Acute Code(s): E03.9 - HYPOTHYROIDISM, UNSPECIFIED SNOMED Code(s): 74085025 Comment: - Continue levoxyl 50 mcg daily - TSH wnl 11/14/18. (7) Mural thrombus of cardiac apex Current Visit: Yes Status: Acute Code(s): I51.3 - INTRACARDIAC THROMBOSIS, NOT ELSEWHERE CLASSIFIED SNOMED Code(s): 56823444 Comment: - Reported by Dr. 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 On warfarin since then. Warfarin now on hold. Echo done 2018 showed nl LVEF. - Ok to withold his warfarin for now in the setting of acute GI bleed (8) DVT prophylaxis Current Visit: Yes Status: Acute Code(s): CWG1634 - SNOMED Code(s): 714522703 Comment: - SCD only due to GI bleed
[2019-01-23] MEDS ORDERED: fentaNYL* 50 MCG/ML 2 ML VIAL (100 MCG VIAL) ONE (16:00)
[2019-01-23] MEDS ORDERED: Midazolam* 1 MG/ML 10 ML VIAL (10 MG) ONE (16:01)
[2019-01-23] MEDS: Atorvastatin* 80 MG TAB PO SCH (18:14)
[2019-01-23] MEDS: Tamsulosin CAP* 0.4 MG PO SCH (19:40)
[2019-01-23] MEDS: NS 0.9% 1000 ML** 1,000 ML IV SCH (19:41)
--- NOTE | 2019-01-23 23:46 | PRO ---
DATE: 01/23/19 - ROOM #R22 REFERRING PHYSICIAN: Gely Ruiz * PROCEDURE: Upper gastrointestinal endoscopy and snare excision, gastric fundal 7 mm polyp and clipping. INDICATION: This 83-year-old man on warfarin due to a history of a left ventricular clot in 2012, has been in the hospital now 5-1/2 days, presenting with rectal bleeding. It was red, though dark. His INR was close to 3 and a little bit supratherapeutic. It took a little while to get that under control. He received 5 units of blood, some FFP but had an allergic reaction to it. Six years ago, he had a low blood count, hemoglobin down to 6.9 and received a couple of units of transfusion and the very next day it was up to 8.9. That was while under the care of Dr. Da Silva. He had an upper endoscopy at some point around then and a [id number] hiatal hernia was seen. No definite sign of blood loss was identified. Last colonoscopy was possibly 8 to 10 years ago and has not been contemplated at this time because of his comorbidities. Over the last 24 hours, he has not had any signs of bleeding. There has been no N+V and no stool. Today's INR is 1.2 and hemoglobin 7.2. ENDOSCOPIST: Dr. Overton. MEDICATIONS: Midazolam 7, fentanyl 50. FINDINGS: He is a mildly overweight elderly man, in no overt distress. He denies any pain. An IV restart was difficult. He was positioned left side down and moderate sedation induced with sequential doses of medication. He was initially fairly gaggy but settled and tolerated the exam very well. EGD: Larynx - no gross disease. Esophagus - easily entered. The mucosa is normal in the upper, mid and lower esophagus with the EG junction at 38. There was only a moderate hiatal hernia. There were no erosions in the hiatal hernia. There was no Fried's esophagus or stricture. Stomach - no blood seen; Overall contours of the cardia, fundus, body, and antrum were normal, although there was a little bit of irritation and swelling in the distal antrum. High in the gastric fundus, there was a 6 to 7 mm polyp that had no infiltration of the wall and protruded up modestly. It had a little bit of bleeding on one edge and thus seemed probably a source of chronic oozing, should warfarin be reinstituted. During the withdrawal phase of the procedure, it was looped with electrocautery snare, resected and most of it appeared to have been desiccated. A clip was then applied to the base. Duodenum - the pylorus, bulb, and second through fourth portions appear normal. There were some minor specs of potential coffee-ground material. No AVM was seen and no fresh blood. IMPRESSION: 1. Moderate hiatal hernia - noted the patient has been on PPI for 7 or 8 yrs or more. It was originally pantoprazole and more recently omeprazole 2. Gastric polyp - removed and clipped and would use twice a day PPI for a couple of weeks. Would not restart warfarin for at least 1 week. Addendum: fundic gland polyp; no f/u needed [id number]/[facility] #: [id number] [facility]
[2019-01-24 00:04] LABS: Hematocrit 25 % (36-46); Hemoglobin 8.4 g/dL (14.0-18.0); Mean Corpuscular HGB Conc 34 g/dL (31-36); Mean Corpuscular Hemoglobin 31 pg (27-31); Mean Corpuscular Volume 90 fL (80-94); Mean Platelet Volume 7.9 fL (7.4-10.4); Platelet Count 137 10^3/uL (150-450); Red Blood Count 2.76 10^6 /uL (4.18-5.48); Red Cell Distribution Width 18 % (10.5-15); White Blood Count 10.3 10^3/uL (3.5-10.8)
[2019-01-24] MEDS: Pantoprazole* 80 mg IN NS 80 MG/250 ML BAG IVPB SCH ×2 (00:58→12:32)
[2019-01-24 01:05] LABS: Lymphocytes % 10 %; Monocytes % 10 %; Neutrophil % 78 %
[2019-01-24 01:06] LABS: Polychromasia 1+
[2019-01-24 01:07] LABS: Acanthocytes 1+
[2019-01-24 01:08] LABS: Burr Cells 1+
[2019-01-24 01:12] LABS: ABS Eosinophils 0.2 10^3/ul (0-0.6)
[2019-01-24] MEDS: Polymyx/Trimethoprim OPTH* 10 ML BTL LEFT EYE SCH ×8 (01:12→23:03)
[2019-01-24] MEDS: Levothyroxine TAB* 50 MCG TAB PO SCH (05:25)
[2019-01-24] MEDS: Insulin LISPRO* 1 UNITS UNIT SUBCUT SCH ×4 (07:50→20:48)
[2019-01-24] MEDS: Carvedilol TAB* 3.125 MG PO SCH ×2 (09:21→20:23)
[2019-01-24] MEDS: Sodium Bicarbonate (ANTACID)* 650 MG TAB PO SCH ×2 (09:21→20:23)
[2019-01-24] MEDS: Ferrous Sulfate TAB* 325 MG PO SCH ×2 (09:21→20:23)
[2019-01-24 09:23] LABS: ABS Basophils 0 10^3/ul (0-0.2); ABS Eosinophils 0.2 10^3/ul (0-0.6); ABS Lymphocytes 1.1 10^3/ul (1.0-4.8); ABS Monocytes 1.1 10^3/ul (0-0.8); ABS Neutrophils 7.1 10^3/ul (1.5-7.7); ABS Nucleated RBC 0 10^3/ul; Eosinophil % 1.8 %; Hematocrit 23 % (36-46); Hemoglobin 7.7 g/dL (14.0-18.0); Lymphocyte % 11.4 %; Mean Corpuscular HGB Conc 34 g/dL (31-36); Mean Corpuscular Hemoglobin 30 pg (27-31); Mean Corpuscular Volume 89 fL (80-94); Mean Platelet Volume 7.6 fL (7.4-10.4); Nucleated Red Blood Cells % 0; Platelet Count 160 10^3/uL (150-450); Red Blood Count 2.53 10^6 /uL (4.18-5.48); Red Cell Distribution Width 17 % (10.5-15); White Blood Count 9.5 10^3/uL (3.5-10.8)
[2019-01-24 09:37] LABS: BUN/Creatinine Ratio 10.6 (8-20); Calcium 6.8 mg/dL (8.6-10.3); EGFR African American 32.1 (>60); EGFR Non-African American 26.6 (>60); Potassium 3.9 mmol/L (3.5-5.0)
[2019-01-24] MEDS: NS 0.9% 1000 ML** 1,000 ML IV SCH (11:27)
[2019-01-24] MEDS: Cephalexin CAP* 250 MG PO SCH ×2 (15:09→20:23)
--- NOTE | 2019-01-24 16:27 | PN ---
Subjective Date of Service: 01/24/19 Interval History: patient seen this morning. no acute events overnight. He did have EGD yesterday and showed gastric polyp resected and clipped. No active lower GI bleed. his Hct was 19 received one units last night and this morning is 23. Repeat H/H at 4 pm pending result will determine for transfusion. Also he is complaining of bilateral arm swelling as he did have infiltration of his IV site yesterday twice. now on warm compress and will start Keflex Past Medical History: Unchanged from Admission Objective Active Medications: Acetaminophen (Tylenol Tab*) 650 mg PO Q4H PRN PRN Reason: FEVER/PAIN Al Hydrox/Mg Hydrox/Simethicone (Maalox Plus*) 30 ml PO Q6H PRN PRN Reason: INDIGESTION Atorvastatin Calcium (Lipitor*) 80 mg PO 1700 [facility] Last Admin: 01/23/19 18:14 Dose: Not Given Carvedilol (Coreg Tab*) 3.125 mg PO BID [facility] Last Admin: 01/24/19 09:21 Dose: 3.125 mg Cephalexin HCl (Keflex Cap*) 250 mg PO TID [facility] Last Admin: 01/24/19 15:09 Dose: 250 mg Dextrose (D50w Syringe 50 Ml*) 12.5 gm IV PUSH .FOR FS < 60 - SS PRN PRN Reason: FS < 60 Ferrous Sulfate (Ferrous Sulfate Tab*) 325 mg PO BID [facility] Last Admin: 01/24/19 09:21 Dose: 325 mg Sodium Chloride (Ns 0.9% 1000 Ml) 1,000 mls @ 75 mls/hr IV PER RATE [facility] Last Admin: 01/24/19 11:27 Dose: 75 mls/hr Pantoprazole Sodium (Protonix Iv Bag*) 80 mg in 250 mls @ 25 mls/hr IVPB Q10H [facility] Last Admin: 01/24/19 12:32 Dose: 25 mls/hr Insulin Human Lispro (Humalog*) 0 units SUBCUT ACHS [facility]; Protocol Last Admin: 01/24/19 12:32 Dose: 1 units Levothyroxine Sodium (Synthroid Tab*) 50 mcg PO DAILY@0600 [facility] Last Admin: 01/24/19 05:25 Dose: 50 mcg Ondansetron HCl (Zofran Inj*) 4 mg IV Q4H PRN PRN Reason: NAUSEA/VOMITING Polymyxin/Trimethoprim Sulfate (Polytrim Ophth*) 1 drop LEFT EYE Q3H [facility] Last Admin: 01/24/19 15:08 Dose: 1 drop Sodium Bicarbonate (Sodium Bicarbonate (Antacid)*) 650 mg PO BID [facility] Last Admin: 01/24/19 09:21 Dose: 650 mg Tamsulosin HCl (Flomax Cap*) 0.4 mg PO BEDTIME [facility] Last Admin: 01/23/19 19:40 Dose: Not Given Vital Signs - 8 hr 01/24/19 01/24/19 11:15 11:34 Temperature 98.4 F Pulse Rate 75 Respiratory 16 Rate Blood Pressure 104/50 (mmHg) O2 Sat by Pulse 99 Oximetry Oxygen Devices in Use Now: None Appearance: pale, pleasant. Bilateral arm edematous, warm to touch Eyes: No Scleral Icterus, - Ears/Nose/Mouth/Throat: NL Teeth, Lips, Gums, Clear Oropharnyx Neck: NL Appearance and Movements; NL JVP, Trachea Midline Respiratory: Symmetrical Chest Expansion and Respiratory Effort, Clear to Auscultation Cardiovascular: NL Sounds; No Murmurs; No JVD, RRR Abdominal: NL Sounds; No Tenderness; No Distention Extremities: - - Edema Skin: - - bilateral upper arm erythema and edema Neurological: Alert and Oriented x 3 Result Diagrams: 01/24/19 08:42 01/24/19 08:42 Microbiology and Other Data: Microbiology 01/18/19 00:29 Transfusion Reaction Gram Stain - Final Blood Bag Assess/Plan/Problems-Billing Assessment: 83 year old male presented for weakness and BRBPR on chronic warfarin, which was reversed and recieved so far total of 5 units of PRBC's as of 02/02/19 - Patient Problems (1) Acute blood loss anemia Current Visit: Yes Status: Acute Code(s): D62 - ACUTE POSTHEMORRHAGIC ANEMIA SNOMED Code(s): 355338428 Comment: - From GI bleed BRBPR and melena - Received 6U PRBC's by 01/23 pm, 1 U FFP. Allergic reaction to FFP, Blood Bank staff recommend diphenhydramine before FFP for him. Received 5 mg vit K 01/18, Kcentra. - continue PPI drip 01/20. EGD 01/23/19 showed gastric polyps. Clipped. Will transition to PO protonix and continue to monitor H/H. - His Hct down to 19 this morning. I [address] place one more unit today 02/02/19 and rechec around 10 pm if not improved will give second units overnight as well (2) GI bleed Current Visit: Yes Status: Acute Code(s): K92.2 - GASTROINTESTINAL HEMORRHAGE, UNSPECIFIED SNOMED Code(s): 39166041 Comment: - From GI bleed BRBPR and melena - Received 6U PRBC's by 01/23 pm, 1 U FFP. Allergic reaction to FFP, Blood Bank staff recommend diphenhydramine before FFP for him. Received 5 mg vit K 01/18, Kcentra. - continue PPI drip 01/20. EGD 01/23/19 showed gastric polyps. Clipped. Will transition to PO protonix and continue to monitor H/H. - His Hct down to 19 this morning. I will place one more unit today 02/02/19 and rechec around 10 pm if not improved will give second units overnight as well (3) CAD (coronary artery disease) Current Visit: Yes Status: Acute Code(s): I25.10 - ATHSCL HEART DISEASE OF [place] CORONARY ARTERY W/O ANG PCTRS SNOMED Code(s): 04341863 Comment: - Continue carvedilol 3.125 mg bid; statin. Resume ASA when appropriate, given his active acute anemia will keep it hold pending GI assessment (4) CKD (chronic kidney disease) Current Visit: Yes Status: Acute Code(s): N18.9 - CHRONIC KIDNEY DISEASE, UNSPECIFIED SNOMED Code(s): 423898264 Comment: - Plateau Cr at 2.5'sh. Avoid nephrotoxic drug (5) Diabetes Current Visit: Yes Status: Acute Code(s): E11.9 - TYPE 2 DIABETES MELLITUS WITHOUT COMPLICATIONS SNOMED Code(s): 81482454 Comment: - Metformin, glyburide on hold. SSI. (6) Hypothyroid Current Visit: Yes Status: Acute Code(s): E03.9 - HYPOTHYROIDISM, UNSPECIFIED SNOMED Code(s): 97237379 Comment: - Continue levoxyl 50 mcg daily - TSH wnl 11/14/18. (7) Mural thrombus of cardiac apex Current Visit: Yes Status: Acute Code(s): I51.3 - INTRACARDIAC THROMBOSIS, NOT ELSEWHERE CLASSIFIED SNOMED Code(s): 04701973 Comment: - Reported by Dr. 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 On warfarin since then. Warfarin now on hold. Echo done 2018 showed nl LVEF. - Ok to withold his warfarin for now in the setting of acute GI bleed (8) DVT prophylaxis Current Visit: Yes Status: Acute Code(s): RVT0772 - SNOMED Code(s): 753007627 Comment: - SCD only due to GI bleed
[2019-01-24 17:18] LABS: Hematocrit 24 % (36-46); Hemoglobin 8.1 g/dL (14.0-18.0)
[2019-01-24] MEDS: Atorvastatin* 80 MG TAB PO SCH (17:28)
[2019-01-24] MEDS: Tamsulosin CAP* 0.4 MG PO SCH (20:23)
[2019-01-25] MEDS: Pantoprazole* 80 mg IN NS 80 MG/250 ML BAG IVPB SCH ×2 (00:26→12:55)
[2019-01-25] MEDS: Polymyx/Trimethoprim OPTH* 10 ML BTL LEFT EYE SCH ×8 (04:14→21:50)
[2019-01-25] MEDS: Levothyroxine TAB* 50 MCG TAB PO SCH (07:10)
[2019-01-25] MEDS: Insulin LISPRO* 1 UNITS UNIT SUBCUT SCH ×4 (08:03→20:59)
[2019-01-25] MEDS: Sodium Bicarbonate (ANTACID)* 650 MG TAB PO SCH ×2 (09:22→21:04)
[2019-01-25] MEDS: Cephalexin CAP* 250 MG PO SCH ×3 (09:22→21:04)
[2019-01-25] MEDS: Carvedilol TAB* 3.125 MG PO SCH ×2 (09:22→21:04)
[2019-01-25] MEDS: Pantoprazole TAB * 40 MG TAB PO SCH ×2 (09:22→21:04)
[2019-01-25] MEDS: Ferrous Sulfate TAB* 325 MG PO SCH ×2 (09:22→21:03)
[2019-01-25 14:01] LABS: ABS Basophils 0 10^3/ul (0-0.2); ABS Eosinophils 0.2 10^3/ul (0-0.6); ABS Monocytes 1.1 10^3/ul (0-0.8); ABS Neutrophils 6.5 10^3/ul (1.5-7.7); ABS Nucleated RBC 0 10^3/ul; Eosinophil % 2.3 %; Hematocrit 25 % (36-46); Hemoglobin 8.5 g/dL (14.0-18.0); Lymphocyte % 10.9 %; Mean Corpuscular HGB Conc 34 g/dL (31-36); Mean Corpuscular Hemoglobin 30 pg (27-31); Mean Corpuscular Volume 90 fL (80-94); Mean Platelet Volume 7.6 fL (7.4-10.4); Nucleated Red Blood Cells % 0; Platelet Count 194 10^3/uL (150-450); Red Blood Count 2.83 10^6 /uL (4.18-5.48); Red Cell Distribution Width 17 % (10.5-15); White Blood Count 8.9 10^3/uL (3.5-10.8)
[2019-01-25 14:19] LABS: BUN/Creatinine Ratio 9.3 (8-20); EGFR African American 30.5 (>60); EGFR Non-African American 25.2 (>60); Magnesium 1.1 mg/dL (1.9-2.7); Phosphorus 2.7 mg/dL (2.5-5.0)
[2019-01-25] MEDS: Atorvastatin* 80 MG TAB PO SCH (16:20)
--- NOTE | 2019-01-25 16:29 | PN ---
Subjective Date of Service: 01/25/19 Interval History: Awake, alert. no distress. upset about his diet. advanced his diet heart healthy diet. no active bleed Past Medical History: Unchanged from Admission Objective Active Medications: Acetaminophen (Tylenol Tab*) 650 mg PO Q4H PRN PRN Reason: FEVER/PAIN Al Hydrox/Mg Hydrox/Simethicone (Maalox Plus*) 30 ml PO Q6H PRN PRN Reason: INDIGESTION Atorvastatin Calcium (Lipitor*) 80 mg PO 1700 [facility] Last Admin: 01/25/19 16:20 Dose: 80 mg Carvedilol (Coreg Tab*) 3.125 mg PO BID [facility] Last Admin: 01/25/19 09:22 Dose: 3.125 mg Cephalexin HCl (Keflex Cap*) 250 mg PO TID [facility] Last Admin: 01/25/19 13:05 Dose: 250 mg Dextrose (D50w Syringe 50 Ml*) 12.5 gm IV PUSH .FOR FS < 60 - SS PRN PRN Reason: FS < 60 Ferrous Sulfate (Ferrous Sulfate Tab*) 325 mg PO BID [facility] Last Admin: 01/25/19 09:22 Dose: 325 mg Insulin Human Lispro (Humalog*) 0 units SUBCUT ACHS [facility]; Protocol Last Admin: 01/25/19 13:05 Dose: 4 units Levothyroxine Sodium (Synthroid Tab*) 50 mcg PO DAILY@0600 [facility] Last Admin: 01/25/19 07:10 Dose: Not Given Ondansetron HCl (Zofran Inj*) 4 mg IV Q4H PRN PRN Reason: NAUSEA/VOMITING Pantoprazole Sodium (Protonix Tab*) 40 mg PO BID [facility] Last Admin: 01/25/19 09:22 Dose: 40 mg Polymyxin/Trimethoprim Sulfate (Polytrim Ophth*) 1 drop LEFT EYE Q3H [facility] Last Admin: 01/25/19 16:20 Dose: 1 drop Sodium Bicarbonate (Sodium Bicarbonate (Antacid)*) 650 mg PO BID [facility] Last Admin: 01/25/19 09:22 Dose: 650 mg Tamsulosin HCl (Flomax Cap*) 0.4 mg PO BEDTIME [facility] Last Admin: 01/24/19 20:23 Dose: 0.4 mg Vital Signs - 8 hr 01/25/19 01/25/19 01/25/19 12:04 13:48 13:51 Temperature 97.6 F 97.1 F 97.1 F Pulse Rate 76 68 80 Respiratory 26 20 20 Rate Blood Pressure 112/55 145/70 145/70 (mmHg) O2 Sat by Pulse 100 100 100 Oximetry 01/25/19 15:43 Temperature 98.1 F Pulse Rate 76 Respiratory 20 Rate Blood Pressure 121/71 (mmHg) O2 Sat by Pulse 100 Oximetry Oxygen Devices in Use Now: None Appearance: awake, able to ambulate with walker. PT did see the patient Eyes: No Scleral Icterus, - - EOMI Ears/Nose/Mouth/Throat: NL Teeth, Lips, Gums, Mucous Membranes Moist Neck: NL Appearance and Movements; NL JVP Respiratory: Symmetrical Chest Expansion and Respiratory Effort, Clear to Auscultation Cardiovascular: NL Sounds; No Murmurs; No JVD, RRR Abdominal: NL Sounds; No Tenderness; No Distention Result Diagrams: 01/25/19 13:51 01/25/19 13:51 Microbiology and Other Data: Microbiology 01/18/19 00:29 Transfusion Reaction Gram Stain - Final Blood Bag Assess/Plan/Problems-Billing Assessment: 83 year old male presented for weakness and BRBPR on chronic warfarin, which was reversed and recieved so far total of 5 units of PRBC's as of 02/02/19 - Patient Problems (1) Acute blood loss anemia Current Visit: Yes Status: Acute Code(s): D62 - ACUTE POSTHEMORRHAGIC ANEMIA SNOMED Code(s): 730584145 Comment: - From GI bleed BRBPR and melena - Received 6U PRBC's by 4/9 pm, 1 U FFP. Allergic reaction to FFP, Blood Bank staff recommend diphenhydramine before FFP for him. Received 5 mg vit K 01/18, Kcentra. - continue PPI drip 01/20. EGD 01/23/19 showed gastric polyps. Clipped. Will transition to PO protonix and continue to monitor H/H. - H/h stable, If remain stable will possible discharge in am (2) GI bleed Current Visit: Yes Status: Acute Code(s): K92.2 - GASTROINTESTINAL HEMORRHAGE, UNSPECIFIED SNOMED Code(s): 45056771 Comment: - From GI bleed BRBPR and melena - Received 6U PRBC's by 4/9 pm, 1 U FFP. Allergic reaction to FFP, Blood Bank staff recommend diphenhydramine before FFP for him. Received 5 mg vit K 01/18, Kcentra. - continue PPI drip 01/20. EGD 01/23/19 showed gastric polyps. Clipped. Will transition to PO protonix and continue to monitor H/H. - H/h stable, If remain stable will possible discharge in am (3) CAD (coronary artery disease) Current Visit: Yes Status: Acute Code(s): I25.10 - ATHSCL HEART DISEASE OF [place] CORONARY ARTERY W/O ANG PCTRS SNOMED Code(s): 40616955 Comment: - Continue carvedilol 3.125 mg bid; statin. Resume ASA when appropriate, given his active acute anemia will keep it hold pending GI assessment (4) CKD (chronic kidney disease) Current Visit: Yes Status: Acute Code(s): N18.9 - CHRONIC KIDNEY DISEASE, UNSPECIFIED SNOMED Code(s): 802264997 Comment: - Plateau Cr at 2.5'sh. Avoid nephrotoxic drug (5) Diabetes Current Visit: Yes Status: Acute Code(s): E11.9 - TYPE 2 DIABETES MELLITUS WITHOUT COMPLICATIONS SNOMED Code(s): 87862486 Comment: - Metformin, glyburide on hold. SSI. (6) Hypothyroid Current Visit: Yes Status: Acute Code(s): E03.9 - HYPOTHYROIDISM, UNSPECIFIED SNOMED Code(s): 75079381 Comment: - Continue levoxyl 50 mcg daily - TSH wnl 11/14/18. (7) Mural thrombus of cardiac apex Current Visit: Yes Status: Acute Code(s): I51.3 - INTRACARDIAC THROMBOSIS, NOT ELSEWHERE CLASSIFIED SNOMED Code(s): 29213986 Comment: - Reported by Dr. 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 On warfarin since then. Warfarin now on hold. Echo done 2018 showed nl LVEF. - Ok to withold his warfarin for now in the setting of acute GI bleed (8) Cellulitis Current Visit: Yes Status: Acute Code(s): L03.90 - CELLULITIS, UNSPECIFIED SNOMED Code(s): 396847264 Comment: - related to his IV site infiltrated twice in both arma - Now on keflex and warm compress improving (9) DVT prophylaxis Current Visit: Yes Status: Acute Code(s): AFI4308 - SNOMED Code(s): 658676766 Comment: - SCD only due to GI bleed
[2019-01-25] MEDS: Tamsulosin CAP* 0.4 MG PO SCH (21:04)
[2019-01-25] MEDS: Calcium Carbonate CHEW TAB* 500 MG (TUMS) PO SCH (21:52)
[2019-01-26] MEDS: Polymyx/Trimethoprim OPTH* 10 ML BTL LEFT EYE SCH ×8 (03:38→22:00)
[2019-01-26] MEDS: Levothyroxine TAB* 50 MCG TAB PO SCH (05:52)
[2019-01-26 07:25] LABS: ABS Basophils 0 10^3/ul (0-0.2); ABS Eosinophils 0.2 10^3/ul (0-0.6); ABS Lymphocytes 1.3 10^3/ul (1.0-4.8); ABS Monocytes 0.9 10^3/ul (0-0.8); ABS Neutrophils 3.7 10^3/ul (1.5-7.7); ABS Nucleated RBC 0 10^3/ul; Eosinophil % 3.7 %; Hematocrit 23 % (36-46); Hemoglobin 7.7 g/dL (14.0-18.0); Lymphocyte % 21.1 %; Mean Corpuscular HGB Conc 34 g/dL (31-36); Mean Corpuscular Hemoglobin 30 pg (27-31); Mean Corpuscular Volume 89 fL (80-94); Mean Platelet Volume 7.7 fL (7.4-10.4); Nucleated Red Blood Cells % 0.1; Platelet Count 204 10^3/uL (150-450); Red Blood Count 2.56 10^6 /uL (4.18-5.48); Red Cell Distribution Width 17 % (10.5-15); White Blood Count 6.1 10^3/uL (3.5-10.8)
[2019-01-26] MEDS: Insulin LISPRO* 1 UNITS UNIT SUBCUT SCH ×4 (07:25→20:25)
[2019-01-26 08:03] LABS: BUN/Creatinine Ratio 8.5 (8-20); Blood Urea Nitrogen 21 mg/dL (6-24); CO2 Carbon Dioxide 18 mmol/L (22-32); Calcium 6.9 mg/dL (8.6-10.3); EGFR African American 30.3 (>60); EGFR Non-African American 25.1 (>60); Glucose 104 mg/dL (70-100); Magnesium 1.1 mg/dL (1.9-2.7); Phosphorus 2.6 mg/dL (2.5-5.0); Potassium 3.6 mmol/L (3.5-5.0); Sodium 140 mmol/L (135-145)
[2019-01-26 08:06] LABS: Anion Gap 6 mmol/L (2-11); Chloride 116 mmol/L (101-111)
[2019-01-26] MEDS: Ferrous Sulfate TAB* 325 MG PO SCH ×2 (08:48→20:24)
[2019-01-26] MEDS: Calcium Carbonate CHEW TAB* 500 MG (TUMS) PO SCH ×2 (08:48→20:25)
[2019-01-26] MEDS: Carvedilol TAB* 3.125 MG PO SCH ×2 (08:48→20:24)
[2019-01-26] MEDS: Pantoprazole TAB * 40 MG TAB PO SCH ×2 (08:48→20:24)
[2019-01-26] MEDS: Sodium Bicarbonate (ANTACID)* 650 MG TAB PO SCH ×2 (08:48→20:25)
[2019-01-26] MEDS: Cephalexin CAP* 250 MG PO SCH ×3 (08:48→20:24)
[2019-01-26] MEDS ORDERED: Magnesium Sulfate 2 GM IV* 2 GM/50 ML BAG IVPB ONE (09:08)
[2019-01-26 09:28] LABS: ALT 14 U/L (7-52); AST 24 U/L (13-39); Albumin 2.4 g/dL (3.2-5.2); Alkaline Phosphatase 65 U/L (34-104); Globulin 2.3 g/dL (2-4); Indirect Bilirubin 0.5 mg/dL (0.3-1.0); Total Protein 4.7 g/dL (6.4-8.9)
--- NOTE | 2019-01-26 14:47 | PN ---
Subjective Date of Service: 01/26/19 Interval History: seen today, still quite upset about the diet he is getting even though it has been liberated to heart healthy diet. I discuss with patient that will arrange for him a menu itemized to his liking but will need to adhere to low fiber diet given his history of diverticulosis. He is still complaining of his right upper extremety pain and tenderness at the site where his previous IV was located and infiltrated. Past Medical History: Unchanged from Admission Objective Active Medications: Acetaminophen (Tylenol Tab*) 650 mg PO Q4H PRN PRN Reason: FEVER/PAIN Al Hydrox/Mg Hydrox/Simethicone (Maalox Plus*) 30 ml PO Q6H PRN PRN Reason: INDIGESTION Atorvastatin Calcium (Lipitor*) 80 mg PO 1700 [facility] Last Admin: 01/25/19 16:20 Dose: 80 mg Calcium Carbonate (Tums*) 1,000 mg PO BID [facility] Last Admin: 01/26/19 08:48 Dose: Not Given Carvedilol (Coreg Tab*) 3.125 mg PO BID [facility] Last Admin: 01/26/19 08:48 Dose: 3.125 mg Cephalexin HCl (Keflex Cap*) 250 mg PO TID [facility] Last Admin: 01/26/19 12:12 Dose: 250 mg Dextrose (D50w Syringe 50 Ml*) 12.5 gm IV PUSH .FOR FS < 60 - SS PRN PRN Reason: FS < 60 Ferrous Sulfate (Ferrous Sulfate Tab*) 325 mg PO BID [facility] Last Admin: 01/26/19 08:48 Dose: 325 mg Insulin Human Lispro (Humalog*) 0 units SUBCUT [facility]; Protocol Last Admin: 01/26/19 12:11 Dose: 2 units Levothyroxine Sodium (Synthroid Tab*) 50 mcg PO DAILY@0600 [facility] Last Admin: 01/26/19 05:52 Dose: 50 mcg Ondansetron HCl (Zofran Inj*) 4 mg IV Q4H PRN PRN Reason: NAUSEA/VOMITING Pantoprazole Sodium (Protonix Tab*) 40 mg PO BID [facility] Last Admin: 01/26/19 08:48 Dose: 40 mg Polymyxin/Trimethoprim Sulfate (Polytrim Ophth*) 1 drop LEFT EYE Q3H [facility] Last Admin: 01/26/19 12:11 Dose: 1 drop Sodium Bicarbonate (Sodium Bicarbonate (Antacid)*) 650 mg PO BID [facility] Last Admin: 01/26/19 08:48 Dose: 650 mg Tamsulosin HCl (Flomax Cap*) 0.4 mg PO BEDTIME [facility] Last Admin: 01/25/19 21:04 Dose: 0.4 mg Vital Signs - 8 hr 01/26/19 01/26/19 01/26/19 06:59 08:00 12:27 Temperature 98.7 F 97.5 F Pulse Rate 82 73 Respiratory 20 20 18 Rate Blood Pressure 109/38 117/52 (mmHg) O2 Sat by Pulse 97 99 Oximetry Oxygen Devices in Use Now: None Appearance: awake, conversing well. no distress. good color and warm to touch Eyes: No Scleral Icterus, - - EOMI Ears/Nose/Mouth/Throat: NL Teeth, Lips, Gums, Mucous Membranes Moist Neck: NL Appearance and Movements; NL JVP, Trachea Midline Respiratory: Symmetrical Chest Expansion and Respiratory Effort, Clear to Auscultation Cardiovascular: NL Sounds; No Murmurs; No JVD, RRR Abdominal: NL Sounds; No Tenderness; No Distention Skin: No Rash or Ulcers Neurological: Alert and Oriented x 3 Result Diagrams: 01/26/19 06:42 01/26/19 06:42 Microbiology and Other Data: Microbiology 01/18/19 00:29 Transfusion Reaction Gram Stain - Final Blood Bag Assess/Plan/Problems-Billing Assessment: 83 year old male presented for weakness and BRBPR on chronic warfarin, which was reversed and recieved so far total of 5 units of PRBC's as of 02/02/19 - Patient Problems (1) Acute blood loss anemia Current Visit: Yes Status: Acute Code(s): D62 - ACUTE POSTHEMORRHAGIC ANEMIA SNOMED Code(s): 639973107 Comment: - From GI bleed BRBPR and melena - Received 6U PRBC's by 01/23 pm, 1 U FFP. Allergic reaction to FFP, Blood Bank staff recommend diphenhydramine before FFP for him. Received 5 mg vit K 01/18, Kcentra. - s/p PPI drip 01/20. EGD 01/23/19 showed gastric polyps. Clipped. transitioned to PO protonix and continue to monitor H/H. - Also will ask nurse to notify MD if he does have melena or BRBPR. Patient himself is unable to comment on quality of his stool - I revisited with Dr. Overton today regarding his anemia and downward trending of his h/h. We both agreed to continue monitoring and if it does trend further down we may proceed with colonoscopy (2) GI bleed Current Visit: Yes Status: Acute Code(s): K92.2 - GASTROINTESTINAL HEMORRHAGE, UNSPECIFIED SNOMED Code(s): 98499164 Comment: - From GI bleed BRBPR and melena - Received 6U PRBC's by 01/23 pm, 1 U FFP. Allergic reaction to FFP, Blood Bank staff recommend diphenhydramine before FFP for him. Received 5 mg vit K 01/18, Kcentra. - s/p PPI drip 01/20. EGD 01/23/19 showed gastric polyps. Clipped. transitioned to PO protonix and continue to monitor H/H. - Also will ask nurse to notify MD if he does have melena or BRBPR. Patient himself is unable to comment on quality of his stool - I revisited with Dr. Overton today regarding his anemia and downward trending of his h/h. We both agreed to continue monitoring and if it does trend further down we may proceed with colonoscopy (3) CAD (coronary artery disease) Current Visit: Yes Status: Acute Code(s): I25.10 - ATHSCL HEART DISEASE OF [place] CORONARY ARTERY W/O ANG PCTRS SNOMED Code(s): 91557598 Comment: - Continue carvedilol 3.125 mg bid; statin. Resume ASA when appropriate, given his active acute anemia will keep it hold pending GI assessment (4) CKD (chronic kidney disease) Current Visit: Yes Status: Acute Code(s): N18.9 - CHRONIC KIDNEY DISEASE, UNSPECIFIED SNOMED Code(s): 921569524 Comment: - Plateau Cr at 2.5'sh. Avoid nephrotoxic drug (5) Diabetes Current Visit: Yes Status: Acute Code(s): E11.9 - TYPE 2 DIABETES MELLITUS WITHOUT COMPLICATIONS SNOMED Code(s): 06420558 Comment: - Metformin, glyburide on hold. SSI. (6) Hypothyroid Current Visit: Yes Status: Acute Code(s): E03.9 - HYPOTHYROIDISM, UNSPECIFIED SNOMED Code(s): 40468360 Comment: - Continue levoxyl 50 mcg daily - TSH wnl 11/14/18. (7) Mural thrombus of cardiac apex Current Visit: Yes Status: Acute Code(s): I51.3 - INTRACARDIAC THROMBOSIS, NOT ELSEWHERE CLASSIFIED SNOMED Code(s): 05867864 Comment: - Reported by Dr. 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 On warfarin since then. Warfarin now on hold. Echo done 2018 showed nl LVEF. - Ok to withold his warfarin for now in the setting of acute GI bleed (8) Cellulitis Current Visit: Yes Status: Acute Code(s): L03.90 - CELLULITIS, UNSPECIFIED SNOMED Code(s): 949296559 Comment: - related to his IV site infiltrated twice in both arms, Left arm erythema improved but his right upper extremety still warm and tender with subcutaneous tissue edema. Now on keflex and warm compress. If does not improve in am I will get US and may change Antibiotics (9) DVT prophylaxis Current Visit: Yes Status: Acute Code(s): BSH4566 - SNOMED Code(s): 249257451 Comment: - SCD only due to GI bleed
[2019-01-26] MEDS: Atorvastatin* 80 MG TAB PO SCH (16:47)
[2019-01-26] MEDS: Tamsulosin CAP* 0.4 MG PO SCH (20:24)
[2019-01-27] MEDS: Polymyx/Trimethoprim OPTH* 10 ML BTL LEFT EYE SCH ×5 (03:00→12:42)
[2019-01-27] MEDS: Levothyroxine TAB* 50 MCG TAB PO SCH (05:17)
[2019-01-27] MEDS: Insulin LISPRO* 1 UNITS UNIT SUBCUT SCH ×2 (07:16→12:42)
[2019-01-27 08:19] LABS: ABS Basophils 0.1 10^3/ul (0-0.2); ABS Eosinophils 0.2 10^3/ul (0-0.6); ABS Lymphocytes 1.3 10^3/ul (1.0-4.8); ABS Monocytes 0.7 10^3/ul (0-0.8); ABS Neutrophils 3.5 10^3/ul (1.5-7.7); ABS Nucleated RBC 0 10^3/ul; Eosinophil % 3.5 %; Hematocrit 23 % (36-46); Lymphocyte % 22.5 %; Mean Corpuscular HGB Conc 35 g/dL (31-36); Mean Corpuscular Hemoglobin 31 pg (27-31); Mean Corpuscular Volume 89 fL (80-94); Mean Platelet Volume 7.2 fL (7.4-10.4); Nucleated Red Blood Cells % 0; Platelet Count 220 10^3/uL (150-450); Red Blood Count 2.58 10^6 /uL (4.18-5.48); Red Cell Distribution Width 17 % (10.5-15); White Blood Count 5.8 10^3/uL (3.5-10.8)
[2019-01-27 08:37] LABS: BUN/Creatinine Ratio 8.5 (8-20); Calcium 7.1 mg/dL (8.6-10.3); EGFR African American 30.5 (>60); EGFR Non-African American 25.2 (>60); Magnesium 1.5 mg/dL (1.9-2.7); Phosphorus 2.3 mg/dL (2.5-5.0); Potassium 3.8 mmol/L (3.5-5.0)
[2019-01-27 08:53] LABS: Total Iron Binding Capacity 190 mcg/dL (250-450); Transferrin 136 mg/dL (203-362)
[2019-01-27 08:54] LABS: % Iron Saturation 9 % (15-55); Iron < 17 ug/dL (50-212)
[2019-01-27 09:14] LABS: Ferritin 97.3 ng/mL (24-336)
[2019-01-27] MEDS: Pantoprazole TAB * 40 MG TAB PO SCH (09:21)
[2019-01-27] MEDS: Carvedilol TAB* 3.125 MG PO SCH (09:21)
[2019-01-27] MEDS: Ferrous Sulfate TAB* 325 MG PO SCH (09:21)
[2019-01-27] MEDS: Cephalexin CAP* 250 MG PO SCH ×2 (09:22→12:41)
[2019-01-27] MEDS: Sodium Bicarbonate (ANTACID)* 650 MG TAB PO SCH ×2 (09:27→09:40)
[2019-01-27] MEDS: Calcium Carbonate CHEW TAB* 500 MG (TUMS) PO SCH ×2 (09:27→09:29)
[2019-01-27] MEDS ORDERED: Magnesium Sulfate 2 GM IV* 2 GM/50 ML BAG IVPB ONE (10:30)
[2019-01-27] MEDS ORDERED: Potassium & Sodium Phos 250MG* = 1 PACKET PO SCH (11:00)
[2019-01-27 12:07] VITALS: BP 119/60
--- NOTE | 2019-01-27 18:10 | DS ---
CC: Dr. Gely Ruiz; Dr. Ambrocio Overton; Dr. William Resendiz, Cardiology DISCHARGE SUMMARY: DATE OF ADMISSION: 01/17/19 DATE OF DISCHARGE: 01/27/19 PRIMARY CARE PROVIDER: Dr. Gely Ruiz. FINAL DISCHARGE DIAGNOSES: 1. Anemia secondary to acute blood loss, most likely upper gastrointestinal due to melena. 2. Gastrointestinal bleed with melena. 3. Hypertension. 4. Benign prostatic hypertrophy and urinary retention. 5. Cellulitis and thrombophlebitis of the right upper extremity. 6. Chronic kidney disease. 7. Diabetes mellitus. 8. Hypothyroidism. 9. History of intramural thrombi, on chronic anticoagulation. 10. History of coronary artery disease and status post myocardial infarction and PTCA. 11. History of cardiac arrest, status post ICD placement. 12. History of lower extremity deep vein thrombosis. HOSPITAL COURSE: The patient presented to [facility] on 01/17/19 for what is described as bright red blood per rectum on admission and later on that evening he developed dark-cheyenne stool blood. There was a concern that he was having a mixed GI bleed upper and lower and he was admitted to the medicine service for further management and supportive care. It should be noted that he was on Coumadin as part of his home medicine regimen as part of the chronic anticoagulation due to his prior history of DVT and prior history of intramural thrombi. His emergency room INR was fairly in the high upper end of normal 3.09, but in light of his active bleed, his INR was reversed with 2 units of FFP. He also received Kcentra and was supported with packed RBC transfusion pending his H and H. The patient was maintained on the medical service along with the GI service. He was seen by multiple GI providers throughout the hospital stay. His initial consultation was performed by Dr. Jatinder Jeffers. At that time, on 01/18/19, he was unstable to pursue any invasive procedures and the recommendation was to reverse the warfarin, hold the Coumadin and supportive therapy until he is stable to perform procedure. On 01/19/19, previous colleague on the hospitalist team did discuss the case briefly with Dr. Brenner, who reports that the intramural thrombus which was reported in 2013 by transesophageal echocardiogram was monitored and he has been on warfarin since and then the last echo in December 2018 showed normal left ventricular ejection fraction and it was feasible to put the warfarin on hold given his active GI bleed. The patient continued to have active GI bleed intermittently and overall he did require 6 units of packed RBC throughout the hospital course. His H and H were monitored throughout the hospital. On admission, his hematocrit was 26, it dropped down to 19 and was remained in the 19, 21 and 23 for the last 48 hours and dropped again on 01/23/19 down to 9. At that time, he was status post 5 units of packed RBC total. He was given 1 additional unit and it went up to 25 and it has been between 25 and 23 since 07/05 to 01/27/19 without further transfusion. I did review his procedure that was done by GI by Dr. Ambrocio Overton and he underwent upper endoscopy, only EGD. At that time, there was only gastric polyp, which was biopsied and the preliminary report shows benign gastric polyp without any evidence of malignancy reported on his pathology. I did revisit with Dr. Overton on regarding whether or not he will benefit from colonoscopy, elected to keep him additional day for today to monitor his hematocrit, which remained stable and today he recommended to avoid any transfusion or procedure at this time, keep him off the warfarin and aspirin and then maintain him on iron supplementation with a close followup as an outpatient. I revisited with the family, his and the patient. I reviewed the recommendation of GI and my recommendation to remain off the aspirin and warfarin until he is reassessed with a repeat CBC as an outpatient and to have further input from his PCP and GI on whether to be able to resume either aspirin or Coumadin if not both at the same time. They were content with the plan. The patient is pleased. He is eager to go home as he has been in the hospital for 10 days; therefore, I deemed him stable for discharge home in stable condition. PHYSICAL EXAM ON DISCHARGE: Her vital signs: 97.6 temperature, pulse 65, respiratory rate 20, satting 99%, blood pressure 119/60. General: He is awake , very anxious to go home, otherwise reports no symptoms. He is able to ambulate using the walker. His main concern is his right upper extremity pain at the site where his IV site was infiltrated 48 hours ago. Otherwise, denies any nausea, vomiting; tolerating p.o. and no active bleed. Generally, he is in good spirit, in no distress. Lungs: Clear to auscultation. I did not hear any rhonchi or crackles. Cardiovascular: S1, S2, regularly paced. He does have a left anterior chest wall device implanted consistent with ICD. Abdomen: Positive bowel sounds. Soft. Good bowel sounds. Nontender. No rebound. No guarding. Extremities: He does have edema of both upper extremities. Both of them, IV sites were infiltrated; however, on the right upper extremity, he does have significant tenderness in the antecubital fossa with subcutaneous palpable cord. Erythema has subsided with warm compress and oral Keflex. Lower extremities: He does have +1 edema bilaterally equal. 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 Pleasant, alert, awake, oriented. He is slightly hard of hearing. INPATIENT DIAGNOSTIC STUDIES: Ultrasound of the left upper extremity shows no evidence of DVT. The ultrasound of the right upper extremity shows superficial venous thrombosis without evidence of any abscess or fluid collection. Chest x-ray on 01/17/19 from admission revealed no evidence of pulmonary edema or acute pulmonary disease. EGD, which was performed, revealed gastric polyp. Pathology shows fundic gland polyp. No further workup. I do not see comment about cytology stains, however. CONSULTATIONS: GI, initial consultation with Dr. Jatinder Jeffers, followup with Dr. Orr, and Dr. Ambrocio Overton who performed the EGD on 01/23/19. DISCHARGE MEDICATIONS: The patient was discharged on the following medications : Resume his home medicines as: 1. Lipitor 80 daily. 2. Coreg 3.125 b.i.d. 3. Lasix 20 mg daily. 4. Glyburide with metformin 1 tab b.i.d. 5. Levothyroxine 50 mcg daily. 6. Multivitamin daily. 7. Spironolactone 25 daily. 8. Keflex 250 mg p.o. t.i.d. for 5 more days. 9. Iron sulfate 325 mg daily. 10. Omeprazole increased to 40 mg b.i.d. 11. Added Flomax 0.4 mg at bedtime due to urinary retention when he was in the hospital. DISCHARGE INSTRUCTIONS: 1. The patient is to have a CBC, BMP, mag and phosphorus on 01/29/19, with the results to be sent to his primary care and Dr. Ambrocio Overton for followup on his electrolytes, specifically his magnesium and his H and H. 2. The patient is to follow up with Dr. Gely Ruiz in 4 to 7 days. 3. The patient is to follow up with Dr. Ambrocio Overton in 1 to 3 days, early next week, with the lab to be done prior to his appointment. DISCHARGE DIET: Adhere to low-fiber diet. WOUND RECOMMENDATION: To apply warm compress to the right forearm, half an hour on, half an hour off as tolerated. ACTIVITY: As tolerated. DISCHARGE CONDITION: Stable. DISCHARGE DISPOSITION: Home. Note to his PCP and GI: Please implement any further recommendation on when the patient may resume his aspirin and/or warfarin as they are on hold due to his GI bleed. Total time on discharge - 35 min [id number]/[facility] #: [id number] SERGIO
== END 2019-01-27 16:17 | disposition home or self-care (01) | DRG 378 ==
LOC: ED 20:16 → MED 22:03
PROVIDERS: ADMIT Pediatrics; ATTEND Internal Medicine
PROC: 30233L1 Transfusion of Nonautologous Fresh Plasma into Peripheral Vein, Percutaneous Approach (ICD-10-PCS; 2019-01-17)
PROC: 30233N1 Transfusion of Nonautologous Red Blood Cells into Peripheral Vein, Percutaneous Approach (ICD-10-PCS; 2019-01-18)
PROC: 30283B1 Transfusion of Nonautologous 4-Factor Prothrombin Complex Concentrate into Vein, Percutaneous Approach (ICD-10-PCS; 2019-01-18)
PROC: 0DB68ZZ Excision of Stomach, Via Natural or Artificial Opening Endoscopic (ICD-10-PCS; principal; 2019-01-23)
DX: K92.1 Melena (principal); I13.0 Hypertensive heart and chronic kidney disease with heart failure and stage 1 through stage 4 chronic kidney disease, or unspecified chronic kidney disease; D62 Acute posthemorrhagic anemia; L03.114 Cellulitis of left upper limb; L03.113 Cellulitis of right upper limb; K31.7 Polyp of stomach and duodenum; E11.9 Type 2 diabetes mellitus without complications; E11.22 Type 2 diabetes mellitus with diabetic chronic kidney disease; E11.40 Type 2 diabetes mellitus with diabetic neuropathy, unspecified; I25.10 Atherosclerotic heart disease of native coronary artery without angina pectoris; E78.00 Pure hypercholesterolemia, unspecified; E78.5 Hyperlipidemia, unspecified; N40.0 Benign prostatic hyperplasia without lower urinary tract symptoms; K44.9 Diaphragmatic hernia without obstruction or gangrene; K21.9 Gastro-esophageal reflux disease without esophagitis; N18.3 Chronic kidney disease, stage 3 (moderate); I50.9 Heart failure, unspecified; E03.9 Hypothyroidism, unspecified; K57.30 Diverticulosis of large intestine without perforation or abscess without bleeding; I95.9 Hypotension, unspecified; I51.3 Intracardiac thrombosis, not elsewhere classified; H91.90 Unspecified hearing loss, unspecified ear; Z97.4 Presence of external hearing-aid; Z86.74 Personal history of sudden cardiac arrest; Z86.73 Personal history of transient ischemic attack (TIA), and cerebral infarction without residual deficits; Z86.718 Personal history of other venous thrombosis and embolism; Z85.828 Personal history of other malignant neoplasm of skin; Z95.5 Presence of coronary angioplasty implant and graft; Z95.0 Presence of cardiac pacemaker; Z98.42 Cataract extraction status, left eye; Z98.41 Cataract extraction status, right eye; Z87.891 Personal history of nicotine dependence; T50.995A Adverse effect of other drugs, medicaments and biological substances, initial encounter; Y92.239 Unspecified place in hospital as the place of occurrence of the external cause; I80.9 Phlebitis and thrombophlebitis of unspecified site; Z79.01 Long term (current) use of anticoagulants; R79.1 Abnormal coagulation profile
CPT/HCPCS: 36415; 71045; 80048; 80053; 80076; 82607; 82668; 82728; 83010; 83540; 83550; 83735; 84100; 85014; 85018; 85025; 85027; 85060; 85610; 85730; 86078; 86850; 86900; 86901; 86922; 86927; 88305; 93005; 99156; 99157; 99284; A9270-GY; C9132; G8978-GP-CJ; G8979-GP-CH; J2250; J3010; J3475; P9017; P9040

== ENCOUNTER 2019-03-17 12:44 | Emergency (ER) | payer MEDICARE, OTHER ==
[2019-03-17] MEDS ORDERED: NS 0.9% 1000 ML** 1,000 ML IV ONE ×2 (13:06→18:02)
[2019-03-17] MEDS ORDERED: Meclizine TAB* 12.5 MG PO ONE ×2 (13:09→18:01)
[2019-03-17 13:26] LABS: ABS Basophils 0.1 10^3/ul (0-0.2); ABS Eosinophils 0.1 10^3/ul (0-0.6); ABS Lymphocytes 1.1 10^3/ul (1.0-4.8); ABS Monocytes 0.8 10^3/ul (0-0.8); ABS Neutrophils 5.3 10^3/ul (1.5-7.7); Hematocrit 28 % (42-52); Hemoglobin 9.4 g/dL (14.0-18.0); Lymphocyte % 15.2 %; Mean Corpuscular HGB Conc 34 g/dL (31-36); Mean Corpuscular Hemoglobin 30 pg (27-31); Mean Corpuscular Volume 88 fL (80-94); Mean Platelet Volume 8.1 fL (7.4-10.4); Platelet Count 274 10^3/uL (150-450); Red Blood Count 3.16 10^6 /uL (4.18-5.48); Red Cell Distribution Width 17 % (10.5-15); White Blood Count 7.4 10^3/uL (3.5-10.8)
[2019-03-17 13:35] LABS: INR 2.92 (0.82-1.09)
[2019-03-17 13:43] LABS: Albumin 3.6 g/dL (3.2-5.2); BUN/Creatinine Ratio 10.4 (8-20); Calcium 8.7 mg/dL (8.6-10.3); EGFR African American 22.7 (>60); EGFR Non-African American 18.8 (>60); Globulin 3.5 g/dL (2-4); HDL Cholesterol 32.8 mg/dL; Potassium 3.9 mmol/L (3.5-5.0); Total Bilirubin 0.6 mg/dL (0.2-1.0); Total Protein 7.1 g/dL (6.4-8.9)
[2019-03-17 13:44] LABS: Troponin I 0.01 ng/mL (<0.04)
[2019-03-17] MEDS ORDERED: Ondansetron INJ* 2 MG/ML VIAL IV ONE ×2 (13:50→18:01)
--- NOTE | 2019-03-17 13:51 | ED ---
Dizziness - HPI Summary HPI Summary: This pt is an 83 y/o male presenting to [facility] for sudden onset of dizziness today. states the pt was feeling well this morning until about 20 minutes [employer] when his dizziness began. Pt is unable to describe if dizziness is room spinning or feeling like passing out. states the pt was also vomiting bile. describes the pt as lightheaded and pale. Pt denies nausea now. Pt denies chest pain, headache, abd pain. Patient is hard of hearing. - History Of Current Complaint Chief Complaint: EDDizziness Stated Complaint: "DIZZINESS PER PT" Time Seen by Provider: 03/17/19 13:03 Hx Obtained From: Patient Onset/Duration: Still Present, Suddenly Timing: Minutes Severity Currently: Moderate Character: Dizzy, Unable To Describe Aggravating Factor(s): Nothing Alleviating Factor(s): Nothing Associated Signs And Symptoms: Positive: Nausea, Vomiting, Other: - NEGATIVE: headache, abd pain.. Negative: Chest Pain, Fever - Allergies/Home Medications Allergies/Adverse Reactions: Allergies Allergy/AdvReac Type Severity Reaction Status Date / Time plasma protein fraction Allergy Swelling Verified 03/17/19 12:52 Of Face,Lips,& Throat Home Medications: Home Medications Torsemide TAB* [Demadex 20 MG*] 40 mg PO BID 03/17/19 [History Confirmed ] PMH/Surg Hx/FS Hx/Imm Hx Endocrine/Hematology History: Reports: Hx Anticoagulant Therapy - COUMADIN, Hx Diabetes - Type 2, Hx Thyroid Disease, Other Endocrine/Hematological Disorders - DIABETIC NEUROPATHY Denies: Hx Blood Disorders, Hx Blood Transfusions, Hx Bone Marrow Disease, Hx Systemic Lupus Erythematosus, Hx Sickle Cell Disease, Hx Anemia, Hx Unexplained Bleeding Cardiovascular History: Reports: Hx Auto Implanted Cardiovert Defib - ICD [facility], Hx Cardiac Arrest, Hx Coronary Artery Disease, Hx Deep Vein Thrombosis - LEFT LEG 2012, Hx Hypercholesterolemia - HLD, Hx Hypertension, Other Cardiovascular Problems/Disorders - SUBDURAL HEMATOMA Denies: Hx Aneurysm, Hx Angina, Hx Angioplasty, Hx Cardiomegaly, Hx Congenital Heart Disease, Hx Congestive Heart Failure, Hx Hypotension, Hx Pacemaker/ICD, Hx Peripheral Vascular Disease, Hx Rheumatic Fever, Hx Syncope, Hx Valvular Heart Disease Respiratory History: Denies: Hx Asthma, Hx Chronic Bronchitis, Hx Chronic Obstructive Pulmonary Disease (COPD), Hx Cystic Fibrosis, Hx Lung Cancer, Hx Pleural Effusion, Hx Pneumonia, Hx Pulmonary Edema, Hx Pulmonary Embolism, Hx Seasonal Allergies, Hx Sleep Apnea GI History: Reports: Other GI Disorders - Inguinal hernia Denies: Hx Cirrhosis, Hx Crohn's Disease, Hx Diverticulosis, Hx Gall Bladder Disease, Hx Gastroesophageal Reflux Disease, Hx Gastrointestinal Bleed, Hx Hiatal Hernia, Hx Irritable Bowel, Hx Jaundice, Hx Obstructive Bowel, Hx Ileostomy, Hx Pyloric Stenosis, Hx Ulcer History: Reports: Hx Benign Prostatic Hyperplasia, 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 Denies: Hx Acute Renal Failure, Hx Dialysis, Hx Kidney Infection, Hx Kidney Stones, Hx Renal Disease Musculoskeletal History: Reports: Other Musculoskeletal History - LEFT SIDED WEAKNESS R/T CVA Denies: Hx Arthritis, Hx Back Problems, Hx Bursitis, Hx Congenital Bone Abnormalities, Hx Fibromyalgia, Hx Gout, Hx Orthopedic Injury, Hx Osteoporosis, Hx Scoliosis, Hx Tendonitis Sensory History: Reports: Hx Cataracts, Hx Contacts or Glasses, Hx Hearing Aid, Hx Hearing Problem - mild mcgrath, does not wear DOBSON;s Denies: Hx Eye Injury, Hx Eye Prosthesis, Hx Glaucoma, Hx Macular Degeneration, Hx Vision Problem, Hx Deafness, Other Sensory Impairments Opthamlomology History: Reports: Hx Cataracts, Hx Contacts or Glasses Denies: Hx Eye Injury, Hx Eye Prosthesis, Hx Glaucoma, Hx Macular Degeneration, Hx Vision Problem, Other Sensory Impairments Neurological History: Reports: Other Neuro Impairments/Disorders - SUBDRUAL HEMATOMA 03/29 Denies: Hx Dementia, Hx Developmental Delay, Hx Headaches, Hx Migraine, Hx Nerve Disease, Hx Seizures, Hx Spinal Cord Injury, Hx Transient Ischemic Attacks (TIA) Psychiatric History: Denies: Hx Anxiety, Hx Attention Deficit Hyperactivity Disorder, Hx Eating Disorder, Hx Depression, Hx Panic Disorder, Hx Post Traumatic Stress Disorder, Hx Inpatient Treatment, Hx Community Mental Health Tx, Hx Schizophrenia, Hx Bipolar Disorder, Hx Suicide Attempt, Hx Substance Abuse - Cancer History Cancer Type, Location and Year: Skin cancer August 2012. cholestrerol Hx Chemotherapy: No Hx Radiation Therapy: No - Surgical History Surgery Procedure, Year, and Place: PACEMAKER/ICD- 2008 ([facility]), CARDIAC STENTS X -2008. HERNIA REPAIR- 1953. cataract surgery - September 2012. skin cancer removed from face August 2012. THROMBECTOMY & FASCIOTOMIE @ [facility] 2012 Hx Anesthesia Reactions: No - Immunization History Date of Tetanus Vaccine: <10 yrs. Date of Influenza Vaccine: >1 yr. Infectious Disease History: No Infectious Disease History: Reports: Hx Shingles - pt cannot remember date Denies: Hx Clostridium Difficile, Hx Hepatitis, Hx Human Immunodeficiency Virus (HIV), Hx Tuberculosis, Traveled Outside the [place] in Last 30 Days - Family History Known Family History: Negative: Cardiac Disease, Other - CANCER - Social History Alcohol Use: None Substance Use Type: Reports: None Hx Tobacco Use: Yes Smoking Status (MU): Former Smoker Type: Cigarettes Have You Smoked in the Last Year: No Review of Systems Negative: Fever Negative: Chest Pain Positive: Vomiting, Nausea. Negative: Abdominal Pain Neurological: Other - POS: dizziness, lightheaded Negative: Headache All Other Systems Reviewed And Are Negative: Yes Physical Exam - Summary Physical Exam Summary: VITAL SIGNS: Reviewed. GENERAL: Patient is an elderly and ill looking male. Patient is not in any acute respiratory distress. HEAD AND FACE: No signs of trauma. No ecchymosis, hematomas or skull depressions. No sinus tenderness. EYES: PERRLA, EOMI x 2, No injected conjunctiva, no nystagmus. EARS: Hearing grossly intact. Ear canals and tympanic membranes are within normal limits. MOUTH: Oropharynx within normal limits. NECK: Supple, trachea is midline, no adenopathy, no JVD, no carotid bruit, no c- spine tenderness, neck with full ROM. CHEST: Symmetric, no tenderness at palpation LUNGS: Clear to auscultation bilaterally. No wheezing or crackles. CVS: Regular rate and rhythm, S1 and S2 present, no murmurs or gallops appreciated. ABDOMEN: Soft, non-tender. No signs of distention. No rebound, no guarding. Bowel sounds are normal. Ventral hernia. EXTREMITIES: FROM in all major joints, no cyanosis or clubbing. Bilateral lower extremity pitting edema 2+. NEURO: Alert and oriented x 3. No acute neurological deficits. Speech is normal and follows commands. SKIN: Dry and warm GCS: 15 Triage Information Reviewed: Yes Vital Signs On Initial Exam: Initial Vitals Temp Pulse Resp BP Pulse Ox 97.3 F 66 16 149/70 95 03/17/19 12:45 03/17/19 12:45 03/17/19 12:45 03/17/19 12:45 03/17/19 12:45 Vital Signs Reviewed: Yes Diagnostics - Vital Signs Vital Signs Temp Pulse Resp BP Pulse Ox 03/17/19 12:45 97.3 F 66 16 149/70 95 - Laboratory Lab Results: Lab Results 03/17/19 03/17/19 03/17/19 Range/Units 13:16 13:16 13:16 WBC 7.4 (3.5-10.8) 10^3/uL RBC 3.16 L (4.18-5.48) 10^6 /uL Hgb 9.4 L (14.0-18.0) g/dL Hct 28 L (42-52) % MCV 88 (80-94) fL MCH 30 (27-31) pg MCHC 34 (31-36) g/dL RDW 17 H (10.5-15) % Plt Count 274 (150-450) 10^3/uL MPV 8.1 (7.4-10.4) fL Neut % (Auto) 71.4 % Lymph % (Auto) 15.2 % [place] % (Auto) 10.3 % Eos % (Auto) 2.0 % Baso % (Auto) 1.1 % Absolute Neuts (auto) 5.3 (1.5-7.7) 10^3/ul Absolute Lymphs (auto) 1.1 (1.0-4.8) 10^3/ul Absolute Monos (auto) 0.8 (0-0.8) 10^3/ul Absolute Eos (auto) 0.1 (0-0.6) 10^3/ul Absolute Basos (auto) 0.1 (0-0.2) 10^3/ul Absolute Nucleated RBC 0.0 10^3/ul Nucleated RBC % 0.0 INR (Anticoag Therapy) 2.92 H (0.82-1.09) APTT 43.0 H (26.0-38.0) seconds Sodium 134 L (135-145) mmol/L Potassium 3.9 (3.5-5.0) mmol/L Chloride 97 L (101-111) mmol/L Carbon Dioxide 28 (22-32) mmol/L Anion Gap 9 (2-11) mmol/L BUN 33 H (6-24) mg/dL Creatinine 3.17 H (0.67-1.17) mg/dL Est GFR ( Amer) 22.7 (>60) Est GFR (Non-Af Amer) 18.8 (>60) BUN/Creatinine Ratio 10.4 (8-20) Glucose 453 H (70-100) mg/dL Lactic Acid (0.5-2.0) mmol/L Calcium 8.7 (8.6-10.3) mg/dL Total Bilirubin 0.60 (0.2-1.0) mg/dL AST 19 (13-39) U/L ALT 13 (7-52) U/L Alkaline Phosphatase 124 H (34-104) U/L Troponin I 0.01 (<0.04) ng/mL Total Protein 7.1 (6.4-8.9) g/dL Albumin 3.6 (3.2-5.2) g/dL Globulin 3.5 (2-4) g/dL Albumin/Globulin Ratio 1.0 (1-3) Triglycerides 154 mg/dL Cholesterol 107 mg/dL LDL Cholesterol 43 mg/dL HDL Cholesterol 32.8 mg/dL Blood Type Antibody Screen 03/17/19 03/17/19 Range/Units 13:16 13:16 WBC (3.5-10.8) 10^3/uL RBC (4.18-5.48) 10^6 /uL Hgb (14.0-18.0) g/dL Hct (42-52) % MCV (80-94) fL MCH (27-31) pg MCHC (31-36) g/dL RDW (10.5-15) % Plt Count (150-450) 10^3/uL MPV (7.4-10.4) fL Neut % (Auto) % Lymph % (Auto) % [place] % (Auto) % Eos % (Auto) % Baso % (Auto) % Absolute Neuts (auto) (1.5-7.7) 10^3/ul Absolute Lymphs (auto) (1.0-4.8) 10^3/ul Absolute Monos (auto) (0-0.8) 10^3/ul Absolute Eos (auto) (0-0.6) 10^3/ul Absolute Basos (auto) (0-0.2) 10^3/ul Absolute Nucleated RBC 10^3/ul Nucleated RBC % INR (Anticoag Therapy) (0.82-1.09) APTT (26.0-38.0) seconds Sodium (135-145) mmol/L Potassium (3.5-5.0) mmol/L Chloride (101-111) mmol/L Carbon Dioxide (22-32) mmol/L Anion Gap (2-11) mmol/L BUN (6-24) mg/dL Creatinine (0.67-1.17) mg/dL Est GFR ( Amer) (>60) Est GFR (Non-Af Amer) (>60) BUN/Creatinine Ratio (8-20) Glucose (70-100) mg/dL Lactic Acid 1.4 (0.5-2.0) mmol/L Calcium (8.6-10.3) mg/dL Total Bilirubin (0.2-1.0) mg/dL AST (13-39) U/L ALT (7-52) U/L Alkaline Phosphatase (34-104) U/L Troponin I (<0.04) ng/mL Total Protein (6.4-8.9) g/dL Albumin (3.2-5.2) g/dL Globulin (2-4) g/dL Albumin/Globulin Ratio (1-3) Triglycerides mg/dL Cholesterol mg/dL LDL Cholesterol mg/dL HDL Cholesterol mg/dL Blood Type B Positive Antibody Screen Pending Result Diagrams: 03/17/19 13:16 03/17/19 13:16 Lab Statement: Any lab studies that have been ordered have been reviewed, and results considered in the medical decision making process. - Radiology Chest XR Radiology Interpretation Completed By: Radiologist Summary of Radiographic Findings: IMPRESSION: No radiographic evidence for acute cardiopulmonary abnormality on this portable chest x-ray. Dr. Dawson has reviewed this report. - CT Brain CT CT Interpretation Completed By: Radiologist Summary of CT Findings: IMPRESSION: There is encephalomalacia involving the right temporal and parietal lobes that appears to be evolution of encephalomalacia in a similar region on the March 29, 2013 CT of the brain, though it has enlarged. There is no definite acute intracranial abnormality including acute intracranial hemorrhage. If there exists clinical concern for an acute stroke then MRI of the brain is advised. Dr. Dawson has reviewed this report. - EKG 12:54 Cardiac Rate: NL - at 68 bpm EKG Rhythm: Sinus Rhythm EKG Comparison: No Significant Change - similar to prior EKG on 01/17/19. Summary of EKG Findings: No ST elevations. Re-Evaluation - Re-Evaluation First Eval Re-Evaluation Time: 16:02 Comment: Pt feels much better. Pt ambulated to the bathroom without any difficulties. feels safe taking the pt home. Dizzy Course/Dx - Course Assessment/Plan: This pt is an 83 y/o male presenting to [facility] for sudden onset of dizziness today. states the pt was feeling well this morning until about 20 minutes [employer] when his dizziness began. Pt is unable to describe if dizziness is room spinning or feeling like passing out. states the pt was also vomiting bile. describes the pt as lightheaded and pale. Pt denies nausea now. Pt denies chest pain, headache, abd pain. Patient is hard of hearing. Past medical history significant for. 1- GI bleed. 2- CKD. 3- Diabetes. 4- Hypothyroidism. 5- CAD. 6- Mural thrombus of cardiac apex. 7- Cellulitis. 8- CHF. 9- Dyslipidemia. 10- CVA on coumadin. Blood test results shows an slight anemia, INR is 2.92, sodium 134, chloride 97, BUN is 33 , creatinine 3.17, glucose 453, alkaline phosphatase 254. Patient was given IVF , Zofran for nausea and vomiting and Meclizine for dizziness. He was also given Insulin for hyperglycemia. Head CT IMPRESSION: There is encephalomalacia involving the right temporal and parietal lobes that appears to be evolution of encephalomalacia in a similar region on the March 29, 2013 CT of the brain, though it has enlarged. There is no definite acute intracranial abnormality including acute intracranial hemorrhage. If there exists clinical concern for an acute stroke then MRI of the brain is advised. Chest x-ray impression: No radiographic evidence for acute cardiopulmonary abnormality on these portable chest x-ray. The patient has been been given approximately 30 units of regular insulin and his blood sugar is 321. Patient developed nausea and dizziness again and he was given NS, zofran and meclizine again. After these medications the patients symptoms have resolved. The patient is feeling much improved. The fingerstick is 197. At this point the patient wants to go home since all his symptoms have resolved. I discussed all the findings and test results with the patient. He was instructed to return to the emergency room immediately if any of the symptoms return or worsens. They understand and agree. Neurological exam before discharge: Patient is alert and oriented x 3. No acute neurological deficits. Patient vital signs are stable. Patient is to follow up with his PCP in the next 2 3 days. They understand and agree. Plan of care was discussed with the patient and patient understands and agrees with the plan of care. All questions were answered at patient satisfaction. There were no further complaints or concerns. - Diagnoses Provider Diagnoses: Vertigo Discharge - Sign-Out/Discharge Documenting (check all that apply): Patient Departure - Discharge home Patient Received Moderate/Deep Sedation with Procedure: No - Discharge Plan Condition: Stable Disposition: HOME Prescriptions: Meclizine TAB* [Antivert 12.5 TAB*] 25 mg PO TID PRN #30 tab PRN Reason: Vertigo Patient Education Materials: Vertigo (ED) Referrals: Gely Ruiz MD [Primary Care Provider] - Additional Instructions: FOLLOW UP WITH YOUR PRIMARY CARE PROVIDER IN 2-3 DAYS. RETURN TO THE EMERGENCY DEPARTMENT FOR ANY WORSENING OR NEW SYMPTOMS. - Billing Disposition and Condition Condition: STABLE Disposition: Home - Attestation Statements Document Initiated by Delonibe: Yes Documenting Scribe: Vanessa Ness Provider For Whom Delonibe is Documenting (Include Credential): Gerber Dawson MD Scribe Attestation: Vanessa Parks scribed for Gerber Dawson MD on 03/18/19 at 1836. Scribe Documentation Reviewed: Yes Provider Attestation: The documentation as recorded by the Vanessa silva accurately reflects the service I personally performed and the decisions made by me, Gerber Dawson MD Status of Scribe Document: Viewed
[2019-03-17] MEDS ORDERED: Insulin REGULAR(*) 1 UNITS UNIT IV PUSH ONE ×3 (14:58→17:24)
[2019-03-17 16:12] LABS: Urine Appearance Clear; Urine Bilirubin Negative (Negative); Urine Blood Negative (Negative); Urine Color Yellow; Urine Glucose 3+(>=500 mg/dL) (Negative); Urine Ketones Negative (Negative); Urine Nitrite Negative (Negative); Urine Protein Negative (Negative); Urine Specific Gravity 1.009 (1.010-1.030); Urine Urobilinogen Negative (Negative)
[2019-03-17] MEDS ORDERED: Ondansetron INJ* 2 MG/ML VIAL ONE (17:57)
[2019-03-17] MEDS ORDERED: Meclizine TAB* 12.5 MG ONE (17:58)
[2019-03-17 18:35] VITALS: BP 102/63
== END 2019-03-17 18:34 | disposition home or self-care (01) ==
LOC: ED 12:44
DX: R42 Dizziness and giddiness (principal); R94.31 Abnormal electrocardiogram [ECG] [EKG]; I12.9 Hypertensive chronic kidney disease with stage 1 through stage 4 chronic kidney disease, or unspecified chronic kidney disease; E11.22 Type 2 diabetes mellitus with diabetic chronic kidney disease; N18.3 Chronic kidney disease, stage 3 (moderate); E11.40 Type 2 diabetes mellitus with diabetic neuropathy, unspecified; I25.10 Atherosclerotic heart disease of native coronary artery without angina pectoris; I69.854 Hemiplegia and hemiparesis following other cerebrovascular disease affecting left non-dominant side; E07.9 Disorder of thyroid, unspecified; E78.00 Pure hypercholesterolemia, unspecified; E78.5 Hyperlipidemia, unspecified; Z88.8 Allergy status to other drugs, medicaments and biological substances; Z79.01 Long term (current) use of anticoagulants; Z95.810 Presence of automatic (implantable) cardiac defibrillator; Z86.74 Personal history of sudden cardiac arrest; Z86.718 Personal history of other venous thrombosis and embolism; Z85.828 Personal history of other malignant neoplasm of skin; Z87.891 Personal history of nicotine dependence
CPT/HCPCS: 36415; 70450; 71045; 80053; 80061; 81003; 82947; 83605; 84484; 85025; 85610; 85730; 86850; 86900; 86901; 93005; 96374; 96375; 96376; 99284; A9270-GY; J2405

== ENCOUNTER 2019-07-22 12:59 | Emergency (ER) | payer MEDICARE, OTHER ==
--- OUTSIDE RECORDS SUMMARY | 2019-07-22 13:05 | XMS REPORT | Continuity of Care Document ---
:1935 External Reference #:[id number] Author Name Yogesh Carrion M.D. Address [address] [place] [address] Care Team Providers Name Role Phone William Resendiz M.D. - Cardiovascular Care Team Information Hand Edge Bander Disease Gely Ruiz MD - Internal Care Team Information [employer] Bander [phone] Medicine Problems Active Problems Provider Date Rosace Yogesh Carrion M.D. Onset: 06/11/2015 Bilateral hearing loss Yogesh Carrion M.D. Onset: 06/11/2015 Type 2 diabetes mellitus Yogesh Carrion M.D. Onset: 06/11/2015 Myocardial infarction Yogesh Carrion M.D. Onset: 06/11/2015 Essential hypertension Yogesh Carrion M.D. Onset: 06/11/2015 Diabetic peripheral neuropathy Yogesh Carrion M.D. Onset: 06/11/2015 Traumatic subdural hematoma Yogesh Carrion M.D. Onset: 06/11/2015 Hypercholesterolemia Yogesh Carrion M.D. Onset: 06/11/2015 Disorder of eye with type 2 diabetes mellitus Yogesh Carrion M.D. Onset: Nonproliferative diabetic retinopathy Yogesh Carrion M.D. Onset: 06/13/2015 Tear film insufficiency Yogesh Carrion M.D. Onset: 06/13/2015 Pseudophakia Yogesh Carrion M.D. Onset: 06/13/2015 H/O Malignant melanoma Onset: Type 2 diabetes mellitus with mild Yogesh Carrion M.D. Onset: 06/14/2017 nonproliferative diabetic retinopathy without macular edema, bilateral Social History Type Date Description Comments Sex Unknown ETOH Use Denies alcohol use Tobacco Use Start: Unknown End: Unknown Patient is a former smoker Recreational Drug Use Denies Drug Use Smoking Status Reviewed: 06/28/19 Patient is a former smoker Allergies, Adverse Reactions, Alerts Active Allergies Reaction Severity Comments Date Plasma-Lyte R 06/28/2019 Inactive Allergies NKDA 06/12/2015 Medications Active Medications SIG Qnty Indications Ordering Provider Date Aspir-81 Unknown 81mg Tablets Carvedilol Unknown 3.125mg Tablets Warfarin Sodium Unknown 2mg Tablets Iron (Ferrous Unknown Gluconate) 256(28Fe) mg Tablets Nexium Unknown 40mg Capsules Glipizide XL Gely Ruiz, 2.5mg Tablets MD ER 24HR Torsemide Gely Ruiz, 20mg Tablets MD Atorvastatin Calcium Gely Ruiz, 80mg MD Tablets Atorvastatin Calcium Gely Ruiz, 80mg MD Tablets Multi Vitamin Daily 1 tablet per day Unknown Tablets Immunizations Description No Information Available Vital Signs Description No Information Available Results Description No Information Available Procedures Description No Information Available Medical Devices Description No Information Available Encounters Description No Information Available Assessments Date Code Description Provider 06/28/2019 E11.3293 Type 2 diabetes mellitus with mild Yogesh Carrion M.D. nonproliferative diabetic 06/28/2019 Z96.1 Presence of intraocular lens Yogesh Carrion M.D. Plan of Treatment 06/28/2019 - Yogesh Carrion M.D.[id number] Type 2 diabetes mellitus with mild nonproliferative diabeticComments:Smoking can increase the risk of developing or worsening any eye related disease, as well as affect your overall health. If you are a smoker, we strongly recommend that you quit.If you are not a smoker , we strongly recommend that you do not start. I can detect diabetic changes in your eyes. Proper control of your diabetes is important for the health of your eyes. It is important that you keep all of your follow up appointments. Dr. Carrion has sent a report to your primary care doctor, letting them know the current status of your retina.Follow up:1 Year Follow Up OCT MAC You can expect to have your eyes dilated at your next visit. If Dr. Carrion orders any additional testing, it may require extra time. We recommend that you bring sunglasses, as dilation drops often make you light sensitive until they wear off. We always recommend you bring someone to drive you home if you are uncomfortable driving with your eyes dilated. If you have any questions before your next visit, feel free to call our office at .z96.1 Presence of intraocular lensComments:The artificial lens implants in both eyes appear to be stable at this time. Functional Status Description No Information Available Mental Status Description No Information Available Referrals Description No Information Available
--- OUTSIDE RECORDS SUMMARY | 2019-07-22 13:05 | XMS REPORT | Continuity of Care Document ---
:1935 External Reference #:[id number] Author Name Yogesh Carrion M.D. Address [address] [place] [address] Care Team Providers Name Role Phone William Resendiz M.D. - Cardiovascular Care Team Information Brew[employer] Pumper Disease Gely Ruiz MD - Internal Care Team Information [employer] [phone] Medicine Problems Active Problems Provider Date Rosace [...] Available Results Description No Information Available Procedures Date Code Description Status 06/28/2019 14432 Scanning Computerized Opthalmic Diagnostic Posterior Seg Completed Retina 06/28/2019 23005 Determination Of Refractive State Completed 06/28/2019 89801 Est Patient Comprehensive Exam Completed Medical Devices Description No Information Available Encounters [...] feel free to call our office at .z96.2 Presence of intraocular lensComments:The artificial lens implants in both eyes appear to be stable at this time. Functional Status Description No Information Available Mental Status Description No Information Available Referrals Description No Information Available
[2019-07-22 13:12] VITALS: BP 143/75
--- NOTE | 2019-07-22 13:34 | UC ---
Upper Extremity HPI - HPI Summary HPI Summary: 2 wks ago fell/tripped in shower. His was near by and was able to help. He has seen his pcp about this. Since then has held his L arm in a certain way to prevent pain. Denies tingling/numbness. Letting his L arm hang down makes it worse, cradling it makes it better. - History of Current Complaint Chief Complaint: UCUpperExtremity Stated Complaint: L ARM PAIN Time Seen by Provider: 07/22/19 13:28 Hx Obtained From: Patient Pain Intensity: 5 Pain Scale Used: 0-10 Numeric Character: Aching Associated Signs And Symptoms: Negative: Swelling, Redness, Bruising, Weakness - Allergies/Home Medications Allergies/Adverse Reactions: Allergies Allergy/AdvReac Type Severity Reaction Status Date / Time plasma protein fraction Allergy Swelling Verified 07/22/19 13:12 Of Face,Lips,& Throat Home Medications: Home Medications Aspirin 81 mg CHEW TAB* [Aspirin Low Dose TAB*] 81 mg PO DAILY 07/22/19 [ History Confirmed 07/22/19] Warfarin TAB(*) [Coumadin TAB(*)] 2 mg PO 1700 07/22/19 [History Confirmed 07/22] PMH/Surg Hx/FS Hx/Imm Hx Previously Healthy: Yes Endocrine History: Thyroid Disease Cardiovascular History: Cardiac Disease, Hypertension, Atrial Fibrillation Other History Of: Anticoagulant Therapy - COUMADIN - Surgical History Surgical History: Yes Surgery Procedure, Year, and Place: PACEMAKER/ICD- 2009 ([facility]), CARDIAC STENTS X 3 -2008. HERNIA REPAIR- 1953. cataract surgery - September 2012. skin cancer removed from face August 2012. THROMBECTOMY & FASCIOTOMIE @ [facility] 2012 - Family History Known Family History: Negative: Cardiac Disease, Other - CANCER - Social History Alcohol Use: None Substance Use Type: None Smoking Status (MU): Former Smoker Type: Cigarettes Have You Smoked in the Last Year: No When Did the Patient Quit Smoking/Using Tobacco: quit in 1950 Household Exposure Type: Cigarettes - Immunization History Most Recent Influenza Vaccination: UNSURE & REFUSES Most Recent Tetanus Shot: 03/28/[address] waters office Most Recent Pneumonia Vaccination: HAD AROUND 2009 Hx Tetanus, Diphtheria Vaccination: Yes Vaccination Up to Date: No Review of Systems All Other Systems Reviewed And Are Negative: Yes Constitutional: Negative: Fever, Chills, Fatigue Skin: Negative: Bruising Motor: Positive: Decreased ROM. Negative: Weakness Neurovascular: Negative: Decreased Sensation, Decreased Pulses Musculoskeletal: Positive: Arthralgia. Negative: Edema, Myalgia Neurological: Negative: Weakness, Paresthesia, Numbness Physical Exam Triage Information Reviewed: Yes Appearance: Well-Appearing Vital Signs: Initial Vital Signs Temp 98.5 F 07/22/19 13:07 Pulse 78 07/22/19 13:07 Resp 20 07/22/19 13:07 BP 143/75 07/22/19 13:07 Pulse Ox 100 07/22/19 13:07 Vital Signs Reviewed: Yes Respiratory Exam: Normal Cardiovascular Exam: Normal Musculoskeletal: Positive: No Edema, ROM Limited @ - L shoulder Neurological: Positive: Alert. Negative: Lethargic Psychological: Positive: Normal Response To Family - Skin: Negative: Rashes, Other - no bruising Upper Extremity Course/Dx - Course Course Of Treatment: FAll in shower and injured his L arm. Although unwitnessed pt. stated he tripped and his L arm caught his fall, came in shortly after. On exam there was tenderness at upper mid humerus and he was holding his L arm; cradled. Other than that no abnormalities one exam, vitals good. Considering L adhesive capsulitis but will send to PT first. Consider repeat imaging w/ pcp. nsaids for pain. - Differential Dx/Diagnosis Differential Diagnosis/HQI/PQRI: Bursitis, Contusion, Fracture (Closed), Strain , Sprain Provider Diagnosis: Left arm pain Discharge ED - Sign-Out/Discharge Documenting (check all that apply): Patient Departure All imaging exams completed and their final reports reviewed: Yes - Discharge Plan Condition: Good Disposition: HOME Prescriptions: Ibuprofen [Ibu] 600 mg PO TID 30 Days #90 tablet Referrals: Gely Ruiz MD [Primary Care Provider] - [facility] Cater[facility] CoordinatorSAV [Medical Doctor] - Additional Instructions: To prevention decreased range of motion please make appt with PHysical therapy. - Billing Disposition and Condition Condition: GOOD Disposition: Home
== END 2019-07-22 14:55 | disposition home or self-care (01) ==
LOC: UCEAST 12:59
DX: M79.622 Pain in left upper arm (principal); E07.89 Other specified disorders of thyroid; I48.91 Unspecified atrial fibrillation; I10 Essential (primary) hypertension; Z88.8 Allergy status to other drugs, medicaments and biological substances; Z79.01 Long term (current) use of anticoagulants; Z95.0 Presence of cardiac pacemaker; Z87.891 Personal history of nicotine dependence; W18.2XXA Fall in (into) shower or empty bathtub, initial encounter; Y93.E1 Activity, personal bathing and showering; Y92.9 Unspecified place or not applicable
CPT/HCPCS: 99211; G0463

== ENCOUNTER 2020-01-22 14:02 | Inpatient (IN) | payer MEDICARE, OTHER ==
--- NOTE | 2020-01-22 14:09 | ED ---
Complex/Multi-Sys Presentation - HPI Summary HPI Summary: 84 year old M presenting to [facility] via EMS with a chief complaint of difficulty walking since 3 days ago. The patient rates the pain 0/10 in severity. Symptoms aggravated by nothing. Symptoms alleviated by nothing. Patient denies any chest pain, shortness of breath, headache, abdominal pain, or dysuria. The patient lives at home with his . Medication list reviewed. Allergy list reviewed. - History Of Current Complaint Hx Obtained From: Patient, EMS Onset/Duration: Lasting Days, Still Present Timing: Constant Aggravating Factor(s): None Alleviating Factor(s): None Associated Signs And Symptoms: Negative: Headache, SOB, Chest Pain, Abdominal Pain, Dysuria - Allergies/Home Medications Allergies/Adverse Reactions: Allergies Allergy/AdvReac Type Severity Reaction Status Date / Time plasma protein fraction Allergy Swelling Verified 07/22/19 13:12 Of Face,Lips,& Throat Home Medications: Home Medications Atorvastatin* [Lipitor 80 MG*] 80 mg PO DAILY 03/16/13 [History Confirmed ] Carvedilol TAB* [Coreg TAB*] 3.125 mg PO BID 03/16/13 [History Confirmed ] Multivit-Min/FA/Lycopen/Lutein [Centrum Silver Ultra Men's Tab] 1 tab PO DAILY 03/16/13 [History Confirmed 01/22/20] Levothyroxine TAB* [Synthroid TAB*] 50 mcg PO DAILY 03/04/18 [History Confirmed 01/22/20] Torsemide TAB* [Demadex 20 MG*] 40 mg PO DAILY 03/17/19 [History Confirmed 01/21] Aspirin 81 mg CHEW TAB* [Aspirin Low Dose TAB*] 81 mg PO DAILY 07/22/19 [ History Confirmed 01/22/20] Warfarin TAB(*) [Coumadin TAB(*)] 2 mg PO . DIRECTED 07/22/19 [History Confirmed 01/22/20] Magnesium Chloride EC TAB* [Slow Mag EC TAB*] 64 mg PO DAILY 01/22/20 [History Confirmed 01/22/20] glipiZIDE [Glipizide ER] 2.5 mg PO DAILY 01/22/20 [History Confirmed 01/22/20] PMH/Surg Hx/FS Hx/Imm Hx Endocrine/Hematology History: Reports: Hx Anticoagulant Therapy - COUMADIN, Hx Diabetes - Type 2, Other Endocrine/Hematological Disorders - DIABETIC NEUROPATHY Denies: Hx Blood Disorders, Hx Blood Transfusions, Hx Bone Marrow Disease, Hx Systemic Lupus Erythematosus, Hx Sickle Cell Disease, Hx Thyroid Disease, Hx Anemia, Hx Unexplained Bleeding Cardiovascular History: Reports: Hx Auto Implanted Cardiovert Defib - ICD [facility], Hx Cardiac Arrest, Hx Coronary Artery Disease, Hx Deep Vein Thrombosis - LEFT LEG 2013, Hx Hypercholesterolemia - HLD, Hx Hypertension, Other Cardiovascular Problems/Disorders - SUBDURAL HEMATOMA Denies: Hx Aneurysm, Hx Angina, Hx Angioplasty, Hx Cardiomegaly, Hx Congenital Heart Disease, Hx Congestive Heart Failure, Hx Hypotension, Hx Pacemaker/ICD, Hx Peripheral Vascular Disease, Hx Rheumatic Fever, Hx Syncope, Hx Valvular Heart Disease Respiratory History: Denies: Hx Asthma, Hx Chronic Bronchitis, Hx Chronic Obstructive Pulmonary Disease (COPD), Hx Cystic Fibrosis, Hx Lung Cancer, Hx Pleural Effusion, Hx Pneumonia, Hx Pulmonary Edema, Hx Pulmonary Embolism, Hx Seasonal Allergies, Hx Sleep Apnea GI History: Reports: Other GI Disorders - Inguinal hernia Denies: Hx Cirrhosis, Hx Crohn's Disease, Hx Diverticulosis, Hx Gall Bladder Disease, Hx Gastroesophageal Reflux Disease, Hx Gastrointestinal Bleed, Hx Hiatal Hernia, Hx Irritable Bowel, Hx Jaundice, Hx Obstructive Bowel, Hx Ileostomy, Hx Pyloric Stenosis, Hx Ulcer History: Reports: Hx Benign Prostatic Hyperplasia, 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 Denies: Hx Acute Renal Failure, Hx Dialysis, Hx Kidney Infection, Hx Kidney Stones, Hx Renal Disease Musculoskeletal History: Reports: Other Musculoskeletal History - LEFT SIDED WEAKNESS R/T CVA Denies: Hx Arthritis, Hx Back Problems, Hx Bursitis, Hx Congenital Bone Abnormalities, Hx Fibromyalgia, Hx Gout, Hx Orthopedic Injury, Hx Osteoporosis, Hx Scoliosis, Hx Tendonitis Sensory History: Reports: Hx Cataracts, Hx Contacts or Glasses, Hx Hearing Aid, Hx Hearing Problem - mild [place], does not wear DOBSON;s Denies: Hx Eye Injury, Hx Eye Prosthesis, Hx Glaucoma, Hx Macular Degeneration, Hx Vision Problem, Hx Deafness, Other Sensory Impairments Opthamlomology History: Reports: Hx Cataracts, Hx Contacts or Glasses Denies: Hx Eye Injury, Hx Eye Prosthesis, Hx Glaucoma, Hx Macular Degeneration, Hx Vision Problem, Other Sensory Impairments Neurological History: Reports: Other Neuro Impairments/Disorders - SUBDRUAL HEMATOMA 03/29 Denies: Hx Dementia, Hx Developmental Delay, Hx Headaches, Hx Migraine, Hx Nerve Disease, Hx Seizures, Hx Spinal Cord Injury, Hx Transient Ischemic Attacks (TIA) Psychiatric History: Denies: Hx Anxiety, Hx Attention Deficit Hyperactivity Disorder, Hx Eating Disorder, Hx Depression, Hx Panic Disorder, Hx Post Traumatic Stress Disorder, Hx Inpatient Treatment, Hx Community Mental Health Tx, Hx Schizophrenia, Hx Bipolar Disorder, Hx Suicide Attempt, Hx Substance Abuse - Cancer History Cancer Type, Location and Year: Skin cancer August 2012. cholestrerol Hx Chemotherapy: No Hx Radiation Therapy: No - Surgical History Surgery Procedure, Year, and Place: PACEMAKER/ICD- 2009 ([facility]), CARDIAC STENTS X 3 -2008. HERNIA REPAIR- 1953. cataract surgery - September 2012. skin cancer removed from face August 2012. THROMBECTOMY & FASCIOTOMIE @ [facility] 2012 Hx Anesthesia Reactions: No - Immunization History Date of Tetanus Vaccine: <10 yrs. Date of Influenza Vaccine: >1 yr. Infectious Disease History: Reports: Hx Shingles - pt cannot remember date Denies: Hx Clostridium Difficile, Hx Hepatitis, Hx Human Immunodeficiency Virus (HIV), Hx Tuberculosis - Family History Known Family History: Negative: Cardiac Disease, Other - CANCER - Social History Alcohol Use: None Substance Use Type: Reports: None Hx Tobacco Use: Yes Smoking Status (MU): Former Smoker Type: Cigarettes Have You Smoked in the Last Year: No Review of Systems Negative: Chest Pain Negative: Shortness Of Breath Negative: Abdominal Pain Negative: dysuria Positive: Other - Difficulty walking Negative: Headache All Other Systems Reviewed And Are Negative: Yes Physical Exam - Summary Physical Exam Summary: Constitutional: Well-developed, Well-nourished, Alert. (-) Distressed Skin: Warm, Dry, Pale HENT: Normocephalic; Atraumatic Eyes: Conjunctiva normal Neck: Musculoskeletal ROM normal neck. (-) JVD, (-) Stridor, (-) Tracheal deviation Cardio: Rhythm regular, rate normal, Heart sounds normal; Intact distal pulses; The pedal pulses are 2+ and symmetric. Radial pulses are 2+ and symmetric. (-) Murmur Pulmonary/Chest wall: Effort normal. (-) Respiratory distress, (-) Wheezes, (-) Rales Abd: Soft, (-) tenderness, (-) Distension, (-) Guarding, (-) Rebound Musculoskeletal: Bilateral lower extremity pitting edema Lymph: (-) Cervical adenopathy Neuro: Alert, Oriented x3, slight left facial droop (presumed chronic from prior CVA), no other focal weakness, moving all extremities. Psych: Mood and affect Normal Triage Information Reviewed: Yes Vital Signs Reviewed: Yes Appearance: Positive: Ill-Appearing Skin: Positive: Pale Head/Face: Positive: Normal Head/Face Inspection Eyes: Positive: Normal Neck: Positive: Supple Respiratory/Lung Sounds: Positive: Clear to Auscultation Cardiovascular: Positive: Normal Abdomen Description: Positive: Nontender Musculoskeletal: Positive: Edema Left. Negative: Edema Right - b/l LE edema Neurological: Positive: Normal Psychiatric: Positive: Normal AVPU Assessment: Alert Procedures - Sedation Patient Received Moderate/Deep Sedation with Procedure: No Diagnostics - Laboratory Result Diagrams: 01/23/20 04:11 01/23/20 04:11 Lab Statement: Any lab studies that have been ordered have been reviewed, and results considered in the medical decision making process. - Radiology Chest x-ray Radiology Interpretation Completed By: Radiologist Summary of Radiographic Findings: No radiographic evidence for acute cardiopulmonary abnormality on this portable chest x-ray. ED physician has reviewed this report. - EKG 14:32 Cardiac Rate: NL - 93 BPM EKG Rhythm: Sinus Rhythm Summary of EKG Findings: No ischemic changes. Dr. Yanez has reviewed and interpreted this EKG. Complex Multi-Symp Course/Dx Course Of Treatment: 84 year old M presenting to [facility] via EMS with a chief complaint of difficulty walking since 3 days ago. Physical exam findings: Pale skin, bilateral lower extremity pitting edema, slight left facial droop ( presumed chronic from prior CVA), no other focal weakness, moving all extremities. An EKG reveals sinus rhythm rate of 93 BPM, no ischemic changes. CXR reveals, per radiologist, no radiographic evidence for acute cardiopulmonary abnormality on this portable chest x-ray. Laboratory results with no significant abnormalities except for an RBC of 1.52, Hgb of 4.0, Hct of 12, MCH of 26, RDW of 18, absolute monos of 1.0, INR of 8.82, APTT of 41.2, carbon dioxide of 15, anion gap of 15, BUN of 81, creatinine of 3.09, BUN/ creatinine ratio of 26.2, glucose of 208, lactic acid of 3.9, calcium of 8.0, alkaline phosphatase of 406, troponin of 0.15, B-Natriuretic peptide of 622, and total protein of 6.0. In the ED course, the patient was given Vitamin K1. We discussed patient care with Dr. Real at 15:00 who accepts the patient for admission. Patient will be admitted. The patient is agreeable with this plan. - Diagnoses Provider Diagnoses: GI bleed, Supratherapeutic INR - Physician Notifications Discussed Care Of Patient With: Sahara Real Time Discussed With Above Provider: 15:00 Instructed by Provider To: Other - Discussed with Dr. Real. - Critical Care Time Critical Care Time: 30-74 min - 60 minutes Discharge ED - Sign-Out/Discharge Documenting (check all that apply): Patient Departure - Discharge Plan Condition: Stable Disposition: ADMITTED TO [facility] - Billing Disposition and Condition Condition: STABLE Disposition: Admitted to [facility] - Attestation Statements Document Initiated by Delonibe: Yes Documenting Scribe: Feli Bermudez Provider For Whom Scribe is Documenting (Include Credential): Wolf Yanez DO Scribe Attestation: Feli Parks scribed for Wolf Yanez DO on 01/23/20 at 0736. Scribe Documentation Reviewed: Yes Provider Attestation: The documentation as recorded by the Feli silva accurately reflects the service I personally performed and the decisions made by Wolf figueroa DO Status of Scribe Document: Viewed
[2020-01-22 14:47] LABS: ABS Basophils 0.1 10^3/ul (0-0.2); ABS Eosinophils 0.3 10^3/ul (0-0.6); ABS Lymphocytes 1.6 10^3/ul (1.0-4.8); ABS Neutrophils 6.9 10^3/ul (1.5-7.7); Eosinophil % 3.1 %; Hematocrit 12 % (42-52); Lymphocyte % 15.9 %; Mean Corpuscular HGB Conc 33 g/dL (31-36); Mean Corpuscular Hemoglobin 26 pg (27-31); Mean Corpuscular Volume 80 fL (80-94); Mean Platelet Volume 7.9 fL (7.4-10.4); Nucleated Red Blood Cells % 0.3; Platelet Count 162 10^3/uL (150-450); Red Blood Count 1.52 10^6 /uL (4.18-5.48); Red Cell Distribution Width 18 % (10-15); White Blood Count 9.8 10^3/uL (3.5-10.8)
[2020-01-22 15:03] LABS: Troponin I 0.15 ng/mL (<0.03)
[2020-01-22 15:13] LABS: TSH (Thyroid Stimulating Horm) 1.55 mcIU/mL (0.34-5.60)
[2020-01-22 15:16] LABS: ALT 7 U/L (7-52); AST 33 U/L (13-39); Albumin 3.3 g/dL (3.2-5.2); Albumin/Globulin Ratio 1.2 (1-3); Alkaline Phosphatase 406 U/L (34-104); Anion Gap 15 mmol/L (2-11); BUN/Creatinine Ratio 26.2 (8-20); Blood Urea Nitrogen 81 mg/dL (6-24); CO2 Carbon Dioxide 15 mmol/L (22-32); Chloride 107 mmol/L (101-111); EGFR African American 23.4 (>60); EGFR Non-African American 19.3 (>60); Globulin 2.7 g/dL (2-4); Glucose 208 mg/dL (70-100); Magnesium 1.9 mg/dL (1.9-2.7); Potassium 4.5 mmol/L (3.5-5.0); Sodium 137 mmol/L (135-145)
--- OUTSIDE RECORDS SUMMARY | 2020-01-22 15:16 | XMS REPORT | Continuity of Care Document ---
:1935 External Reference #:[id number] Author Name William Resendiz M.D., [facility], [facility] Address [address] 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 Medicine Problems Active Problems Provider Date Primary cardiomyopathy William Resendiz M.D., [facility], Onset: 07/16/2013 [facility] Paroxysmal ventricular tachycardia William Resendiz M.D., [facility], Onset: 07/27 [facility] Chronic ischemic heart disease William Resendiz M.D., [facility], Onset: 2016 [facility] Thoracic aortic ectasia William Resendiz M.D., [facility], Onset: 10/03/2017 [facility] Social History Type Date Description Comments Sex Unknown Tobacco Use Start: Unknown Never Smoked Cigarettes ETOH Use Denies alcohol use Recreational Drug Use Denies Drug Use Tobacco Use Start: Unknown End: Patient is a former smoker Unknown Smoking Status Reviewed: 01/02/20 Patient is a former smoker Exercise Type/Frequency Does not exercise Allergies, Adverse Reactions, Alerts Active Allergies Reaction Severity Comments Date Vic Inhibitors hyperkalemia and Ri 07/02/2015 Angiotensin Receptor hyperkalemia and Ri 07/02/2015 Blockers Plasma Facial swelling, 02/01/2019 Itching Inactive Allergies NKDA 03/29/2013 Medications Active Medications SIG Qnty Indications Ordering Provider Date Glyburide/Metformin HCL take 1 tablet by Unknown mouth twice a 5-500mg Tablets day Spironolactone 1 po qd Unknown 25mg Tablets Carvedilol 1 po bid Unknown 3.125mg Tablets Multivitamins 1 by mouth every Unknown Capsules day Levothyroxine Sodium 1 by mouth every Unknown 50mcg day Tablets Omeprazole one cap twice a Unknown 40mg Capsules DR day Atorvastatin Calcium 1 by mouth every Unknown 80mg day Tablets Torsemide Gely Ruiz 20mg Tablets MD Brooks Aspirin Adult take one a day Unknown 325mg Tablets Magnesium Unknown Medications Administered in Office Medication SIG Qnty Indications Ordering Provider Date Depomedrol 40MG William Morse MD 11/06/2019 Injection Inj, Regadenoson, 0.1 MG William Resendiz M.D., 12/22/2012 Injection FACC, FASNC Technetium TC 99M William Resendiz M.D., 12/22/2012 Tetrofosmin, Per Unit Dose FACC, FASNC Up To 40 Millicuries Injection Immunizations Description No Information Available Vital Signs Date Vital Result Comment 01/02/2020 10:00am Height 67.5 inches 5'7.50" Weight 179.00 lb with shoes Heart Rate 88 /min BP Systolic Sitting 120 mmHg Ra BP Diastolic Sitting 66 mmHg Ra BMI (Body Mass Index) 27.6 kg/m2 Ejection Fraction 20-25% Echo 12/24/2019 11/06/2019 9:07am Height 67.5 inches 5'7.50" Weight 182.00 lb Heart Rate 72 /min BP Systolic 120 mmHg BP Diastolic 62 mmHg Respiratory Rate 12 /min Body Temperature 98.1 F Pain Level 0 BMI (Body Mass Index) 28.1 kg/m2 Results Description No Information Available Procedures Date Code Description Status 01/02/2020 93487 EKG Tracing & Interpretation Completed 12/24/2019 66914 ECHO Transthoracic, Real-Time 2D With Doppler And Color Completed Flow 11/06/2019 78438 Inject/Drain Joint/Bursa Major W/O US Completed 10/29/2019 45031 Interrogation Implant Cardiovasc Monitor System Incl Completed Analysis Int 10/29/2019 48053 Interrogation Implant Cardiovasc Monitor System Incl Completed Analysis Int 10/29/2019 69777 Icd Eval With Inerative Adjustmt Dual Lead System Completed 10/29/2019 14715 Icd Eval With Inerative Adjustmt Dual Lead System Completed 08/09/2019 49116 Interrogation Implant Cardiovasc Monitor System Incl Completed Analysis Int 08/09/2019 94801 Interrogation Implant Cardiovasc Monitor System Incl Completed Analysis Int 08/09/2019 17630 Icd Eval With Inerative Adjustmt Dual Lead System Completed 08/09/2019 79378 Icd Eval With Inerative Adjustmt Dual Lead System Completed 08/03/2010 83191032 Colonoscopy Completed Medical Devices Description No Information Available Encounters Type Date Location Provider Dx Diagnosis Office Visit 11/06/2019 [facility] William Brumfield M25.512 Pain in left 9:00a at Will[facility] Morse MD shoulder S46.012A Strain of musc/tend the rotator cuff of left shoulder, init W19.xxxA Unspecified fall, initial encounter Assessments Date Code Description Provider 12/24/2019 I77.810 Thoracic aortic ectasia [facility] ECHO Schedule 11/06/2019 M25.512 Pain in left shoulder William Morse MD 11/06/2019 S46.012A Strain of muscle(s) and tendon(s) of William Morse MD the rotator cuff of left shoulder, initial encounter 11/06/2019 W19.xxxA Unspecified fall, initial encounter William Morse MD 10/29/2019 I25.5 Ischemic cardiomyopathy William Resendiz M.D., [facility], [facility] 10/29/2019 I25.5 Ischemic cardiomyopathy [facility] Pacer Schedule 10/29/2019 Z95.810 Presence of automatic (implantable) William Resendiz M.D., [facility], cardiac defibrillator [facility] 10/29/2019 Z95.810 Presence of automatic (implantable) [facility] Pacer Schedule cardiac defibrillator 10/29/2019 I47.2 Ventricular tachycardia William Resendiz M.D., [facility], [facility] 10/29/2019 I47.2 Ventricular tachycardia [facility] Pacer Schedule 10/29/2019 I50.22 Chronic systolic (congestive) heart William Resendiz M.D. , [facility], failure [facility] 10/29/2019 I50.22 Chronic systolic (congestive) heart [facility] Pacer Schedule failure 08/09/2019 I25.5 Ischemic cardiomyopathy William Resendiz M.D., [facility], [facility] 08/09/2019 I25.5 Ischemic cardiomyopathy [facility] Pacer Schedule 08/09/2019 Z95.810 Presence of automatic (implantable) William Resendiz M.D., [facility], cardiac defibrillator [facility] 08/09/2019 Z95.810 Presence of automatic (implantable) [facility] Pacer Schedule cardiac defibrillator 08/09/2019 I47.2 Ventricular tachycardia William Resendiz M.D., [facility], [facility] 08/09/2019 I47.2 Ventricular tachycardia [facility] Pacer Schedule Plan of Treatment Future Appointment(s):01/28/2020 10:00 am - [facility] Pacer Schedule at [facility] Functional Status Description No Information Available Mental Status Description No Information Available Referrals Description No Information Available
--- OUTSIDE RECORDS SUMMARY | 2020-01-22 15:16 | XMS REPORT | Continuity of Care Document ---
:1935 External Reference #:[id number] Author Name [facility] ECHO Schedule (transmitted by agent of provider Maria De Jesus Ramirez) Address [address] [place] [address] Care Team Providers Name Role Phone Gely Ruiz MD - Internal Care Team Information Jackscrew Man Medicine Problems Active Problems Provider Date Primary cardiomyopathy William Resendiz M.D., [facility], Onset: 07/16/2013 [facility] Paroxysmal ventricular tachycardia William Resendiz M.D., [facility], Onset: 07/27 [facility] Chronic ischemic heart disease William Resendiz M.D., [facility], Onset: 2016 [facility] Thoracic aortic ectasia William Resendiz M.D., [facility], Onset: 10/03/2017 [facility] Social History Type Date Description Comments [...] Injection FACC, FASNC Technetium TC 99M William Rseendiz M.D., 12/22/2012 Tetrofosmin, Per Unit Dose FACC, [...] Available Procedures Date Code Description Status 01/02/2020 41588 EKG Tracing & Interpretation Completed 12/24/2019 35236 ECHO Transthoracic, Real-Time 2D With Doppler And Color Completed Flow 12/24/2019 89783 ECHO Transthoracic, Real-Time 2D With Doppler And Color Completed Flow 11/06/2019 94743 Inject/Drain Joint/Bursa Major W/O US Completed 10/29/2019 04915 Interrogation Implant Cardiovasc Monitor System Incl Completed Analysis Int 10/29/2019 33883 Interrogation Implant Cardiovasc Monitor System Incl Completed Analysis Int 10/29/2019 04524 Icd Eval With Inerative Adjustmt Dual Lead System Completed 10/29/2019 73875 Icd Eval With Inerative Adjustmt Dual Lead System Completed 08/09/2019 35905 Interrogation Implant Cardiovasc Monitor System Incl Completed Analysis Int 08/09/2019 08326 Interrogation Implant Cardiovasc Monitor System Incl Completed Analysis Int 08/09/2019 11448 Icd Eval With Inerative Adjustmt Dual Lead System Completed 08/09/2019 50795 Icd Eval With Inerative Adjustmt Dual Lead System Completed 08/03/2010 56139798 Colonoscopy Completed Medical Devices Description No Information Available Encounters Type Date Location Provider Dx Diagnosis Office Visit 01/02/2020 [facility] William Gabe I77.810 Thoracic aortic 10:45a Of Ama Resendiz M.D., ectasia [facility], [facility] I25.5 Ischemic cardiomyopathy R94.31 Abnormal electrocardiogram [ECG] [EKG] Office Visit 11/06/2019 9:00a [facility] William Brumfield M25.512 [place] shoulder S46.012A Strain of musc/tend the rotator cuff of left shoulder, init W19.xxxA Unspecified fall, initial encounter Assessments Date Code Description Provider 01/02/2020 I77.810 Thoracic aortic ectasia William Resendiz M.D., [facility], [facility] 01/02/2020 I25.5 Ischemic cardiomyopathy William Resendiz M.D., [facility], [facility] 01/02/2020 R94.31 Abnormal electrocardiogram [ECG] William Resendiz M.D., [EKG] [facility], [facility] 12/24/2019 I77.810 Thoracic aortic ectasia William Resendiz M.D., [facility], [facility] 12/24/2019 I77.810 Thoracic aortic ectasia [facility] ECHO Schedule 11/06/2019 M25.512 Pain in left shoulder William Morse MD 11/06/2019 S46.012A Strain of muscle(s) and tendon(s) of William Morse MD the rotator cuff of left shoulder, initial encounter 11/06/2019 W19.xxxA Unspecified fall, initial encounter William Morse MD 10/29/2019 I25.5 Ischemic cardiomyopathy William Resendiz M.D., [facility], [facility] 10/29/2019 I25.5 Ischemic cardiomyopathy [facility] Pacer Schedule 10/29/2019 Z95.810 Presence of automatic (implantable) Willima Resendiz M.D., cardiac defibrillator [facility], [facility] 10/29/2019 Z95.810 Presence of automatic (implantable) [facility] Pacer Schedule cardiac defibrillator 10/29/2019 I47.2 Ventricular tachycardia William Resendiz M.D., [facility], [facility] 10/29/2019 I47.2 Ventricular tachycardia [facility] Pacer Schedule 10/29/2019 I50.22 Chronic systolic (congestive) heart William Resendiz M.D. , failure [facility], [facility] 10/29/2019 I50.22 Chronic systolic (congestive) heart [facility] Pacer Schedule failure 08/09/2019 I25.5 Ischemic cardiomyopathy William Resendiz M.D., [facility], [facility] 08/09/2019 I25.5 Ischemic cardiomyopathy [facility] Pacer Schedule 08/09/2019 Z95.810 Presence of automatic (implantable) William Resendiz M.D., cardiac defibrillator [facility], [facility] 08/09/2019 Z95.810 Presence of automatic (implantable) [facility] Pacer Schedule cardiac defibrillator 08/09/2019 I47.2 Ventricular tachycardia William Resendiz M.D., [facility], [facility] 08/09/2019 I47.2 Ventricular tachycardia Ica Pacer Schedule Plan of Treatment Future Appointment(s):01/28/2020 10:00 am - [facility] Pacer Schedule at [facility]01/02/2020 - William Resendiz M.D., [facility], UJTWCP54.810 Thoracic aortic ectasiaNew Orders:Echocardiogram, Ordered: 01/02/20Comments:As discussed, your heart and aorta are stable. Please continue to avoid lifting more than 30 lbs.Follow up:one year after echoI25.5 Ischemic [id number] Abnormal electrocardiogram [ECG] [EKG] Functional Status Description No Information Available Mental Status Description No Information Available Referrals Description No Information Available
--- OUTSIDE RECORDS SUMMARY | 2020-01-22 15:16 | XMS REPORT | Continuity of Care Document ---
:1935 External Reference #:[id number] Author Name William Resendiz M.D., [facility]ED WITH [facility], [facility] (transmitted by agent of provider Maria De Jesus Ramirez) Address [address] 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 Medicine Problems Active Problems Provider Date Primary cardiomyopathy William Resendiz M.D., [facility] WITH [facility], Onset: 07/16/2013 [facility] Paroxysmal ventricular tachycardia William Resendiz M.D., [facility] WITH [facility], Onset: 07/27 [facility] Chronic ischemic heart disease William Resendiz M.D., [facility] WITH [facility], Onset: 2016 [facility] Thoracic aortic ectasia William Resendiz M.D., [facility] WITH [facility], Onset: 10/03/2017 [facility] Social History Type Date Description Comments Sex [...] Available Procedures Date Code Description Status 01/02/2020 25079 EKG Tracing & Interpretation Completed 12/24/2019 72822 ECHO Transthoracic, Real-Time 2D With Doppler And Color Completed Flow 11/06/2019 27572 Inject/Drain Joint/Bursa Major W/O US Completed 10/29/2019 45321 Interrogation Implant Cardiovasc Monitor System Incl Completed Analysis Int 10/29/2019 43973 Interrogation Implant Cardiovasc Monitor System Incl Completed Analysis Int 10/29/2019 36006 Icd Eval With Inerative Adjustmt Dual Lead System Completed 10/29/2019 53086 Icd Eval With Inerative Adjustmt Dual Lead System Completed 08/09/2019 18416 Interrogation Implant Cardiovasc Monitor System Incl Completed Analysis Int 08/09/2019 65500 Interrogation Implant Cardiovasc Monitor System Incl Completed Analysis Int 08/09/2019 55843 Icd Eval With Inerative Adjustmt Dual Lead System Completed 08/09/2019 79593 Icd Eval With Inerative Adjustmt Dual Lead System Completed 08/03/2010 21950396 Colonoscopy Completed Medical Devices Description No Information Available Encounters Type Date Location Provider Dx Diagnosis Office Visit 01/02/2020 [facility] William Bernal I77.810 Thoracic aortic 10:45a Of [facility].D., [facility] I25.5 Ischemic cardiomyopathy R94.31 Abnormal electrocardiogram [ECG] [EKG] Office Visit 11/06/2019 9:00a [facility] William Brumfield M25.512 Pain in left at William Morse MD shoulder S46.012A Strain of musc/tend the rotator cuff of left shoulder, init W19.xxxA Unspecified fall, initial encounter Assessments Date Code Description Provider 01/02/2020 I77.810 Thoracic aortic ectasia William Resendiz M.D., [place], [facility] 01/02/2020 I25.5 Ischemic cardiomyopathy William Resendiz M.D., [place], [facility] 01/02/2020 R94.31 Abnormal electrocardiogram [ECG] [facility]end[facility] M.D., [EKG] [facility] 12/24/2019 I77.810 Thoracic aortic ectasia [facility] ECHO Schedule 11/06/2019 M25.512 Pain in left shoulder William Morse MD 11/06/2019 S46.012A Strain of muscle(s) and tendon(s) of William Morse MD the rotator cuff of left shoulder, initial encounter 11/06/2019 W19.xxxA Unspecified fall, initial encounter William Morse MD 10/29/2019 I25.5 Ischemic cardiomyopathy William Resendiz M.D., [place], [facility] 10/29/2019 I25.5 Ischemic cardiomyopathy [facility] Pacer Schedule 10/29/2019 Z95.810 Presence of automatic (implantable) William Resendiz M.D., cardiac defibrillator [facility]ED WITH [facility], [facility] 10/29/2019 Z95.810 Presence of automatic (implantable) [facility] Pacer Schedule cardiac defibrillator 10/29/2019 I47.2 Ventricular tachycardia William Resendiz M.D., [facility]ED WITH [facility], [facility] 10/29/2019 I47.2 Ventricular tachycardia [facility] Pacer Schedule 10/29/2019 I50.22 Chronic systolic (congestive) heart William Resendiz M.D. , failure [facility] WITH [facility], [facility] 10/29/2019 I50.22 Chronic systolic (congestive) heart [facility] Pacer Schedule failure 08/09/2019 I25.5 Ischemic cardiomyopathy William Resendiz M.D., [facility]ED WITH [facility], [facility] 08/09/2019 I25.5 Ischemic cardiomyopathy [facility] Pacer Schedule 08/09/2019 Z95.810 Presence of automatic (implantable) William Resendiz M.D., cardiac defibrillator [facility]ED WITH [facility], [facility] 08/09/2019 Z95.810 Presence of automatic (implantable) [facility] Pacer Schedule cardiac defibrillator 08/09/2019 I47.2 Ventricular tachycardia William Resendiz M.D., [facility]ED WITH [facility], [facility] 08/09/2019 I47.2 Ventricular tachycardia [facility] Pacer Schedule Plan of Treatment Future Appointment(s):01/28/2020 10:00 am - [facility]ca Pacer Schedule at [facility]01/02/2020 - William Resendiz M.D., [facility] WITH [facility], OVIGLV89.810 Thoracic aortic ectasiaNew Orders:Echocardiogram, Ordered: 01/02/20Comments:As discussed, your heart and aorta are stable. Please continue to avoid lifting more than 30 lbs.Follow up:one year after echoI25.5 Ischemic [id number] Abnormal electrocardiogram [ECG] [EKG] Functional Status Description No Information Available Mental Status Description No Information Available Referrals Description No Information Available
[2020-01-22 15:25] LABS: Activated Partial Thrombo Time 41.2 seconds (26.0-38.0)
[2020-01-22 15:27] LABS: INR 8.82 (0.82-1.09)
[2020-01-22] MEDS ORDERED: Phytonadione SUBCUT/IM Adult* 10 MG/ML AMP (IM or SQ not preferred route) IM ONE (15:49)
--- NOTE | 2020-01-22 16:08 | HP ---
History of Present Illness - History of Present Illness Reason for Visit: Generalized weakness History of Present Illness: Lele Fernandez is a 84 y/o male with history of CVA with residual left hemiparesis, CHF, CKD, hypothyroidisim, CAD s/p OR and cardiac arrest, 3 stents and ICD; GERD, HLD, DM, LL DVT , history of compartment syndrome. He presented to ED for generalized weakness for 2 days duration. Patient is hard of hearing, limited history was obtained from him. He told me he had constipation, his last bowel movement was 2 days ago, it was dark brown. But otherwise he denied hematemesis or hemoptysis. He did claim have abdominal pain on palpitation as well. More History was obtained from his Mony over phone. Patient was independently ambulating normally. felt he was a bit off starting from yesterday, and he started to have problem walking from living room to restroom today. She didn't observe other symptoms or complains. Therefore he was sent to the hospital. no overt bleeding was observed, no fever/cough/SOB noted. Patient is home bound mainly, no travel history or sick contact recently. Patient has been taking warfarin for his LL DVT and heart clot (not dissolving despite warfarin use according to ). He is taking warfarin 4mg on e and , and 2mg for the rest of the week. His last dose was yesterday, he didn't take any today. In ED, he was drowsy looking but arousable. No overt bleeding noted. He was found to have Hb 4, transfusion started. He was found to have INR 8+. - Past Medical History Past Medical History: 1. History of coronary artery disease, status post OR and cardiac arrest, with 3 stents and ICD placement, followed by Dr. Resendiz. 2. History of CHF, unclear of his most recent EF 20-25% 3. History of hypothyroidism. 4. CKD. 5. GERD. 6. Hyperlipidemia. 7. Diabetes. 8. History of a lower extremity DVT. 9. Status thrombectomy and fasciotomy for compartment syndrome in 2013 at [facility]. - Past Surgical History Past Surgical History: ICD placement Coronary Stent placement Status thrombectomy and fasciotomy - Past Family History Past Family History: Not contributory - Past Social History Past Social History: Patient lives with his , ambulates independently at home with a cane. No smoking, alcohol or substance use. Code status is full code. Medications: Home Medications Medication Instructions Recorded Confirmed Type Atorvastatin* [Lipitor 80 MG*] 80 mg PO DAILY 03/16/13 01/22/20 History Carvedilol TAB* [Coreg TAB*] 3.125 mg PO BID 03/16/13 01/22/20 History Multivit-Min/FA/Lycopen/Lutein 1 tab PO DAILY 03/16/13 01/22/20 History [Centrum Silver Ultra Men's Tab] Levothyroxine TAB* [Synthroid TAB*] 50 mcg PO DAILY 03/04/18 01/22/20 History Torsemide TAB* [Demadex 20 MG*] 40 mg PO DAILY 03/17/19 01/22/20 History Aspirin 81 mg CHEW TAB* [Aspirin 81 mg PO DAILY 07/22/19 01/22/20 History Low Dose TAB*] Warfarin TAB(*) [Coumadin TAB(*)] 4mg for Tues and Thurs, 2 mg po for rest of the week 07/22/19 01/22/20 History Magnesium Chloride EC TAB* [Slow 64 mg PO DAILY 01/22/20 01/22/20 History Mag EC TAB*] glipiZIDE [Glipizide ER] 2.5 mg PO DAILY 01/22/20 01/22/20 History Allergies/Adverse Reactions: Allergies Allergy/AdvReac Type Severity Reaction Status Date / Time plasma protein fraction Allergy Swelling Verified 07/22/19 13:12 Of Face,Lips,& Throat Review of Systems - Review of Systems Constitutional: Positive: Malaise. Negative: Fever, Chills, Sweats, Other Eyes: Negative: Pain, Vision Change, Conjunctivae Inflammation, Eyelid Inflammation, Redness, Other ENT: Negative: Ear Pain, Ear Discharge, Nose Pain, Nose Discharge, Nose Congestion, Mouth Pain, Mouth Swelling, Throat Pain, Throat Swelling, Other Respiratory: Negative: Cough, Dry, Shortness of Breath, Hemoptysis, SOB with Excertion, Pleuritic Pain, Sputum, Wheezing Cardiovascular: Negative: Chest Pain, Palpitations, Orthopnea, Paroxysmal Noc. Dyspnea, Edema, Light Headedness, Other Gastrointestinal: Positive: Abdominal Pain, Melena. Negative: Nausea, Vomiting , Diarrhea, Constipation, Hematochezia, Other Genitourinary: Negative: Dysuria, Frequency, Incontinence, Hematuria, Retention , Other Musculoskeletal: Negative: Neck Pain, Shoulder Pain, Arm Pain, Back Pain, Hand Pain, Leg Pain, Foot Pain, Other Skin: Negative: Rash, Lesions, Marvin, Bruising, Other Neurological/Mental Status: Positive: Weakness - left side weakness Exam Vital Signs: Vital Signs (72 hours) 01/22/20 14:03 Temperature 97.2 F Pulse Rate 97 Respiratory 18 Rate Blood Pressure 109/54 (mmHg) O2 Sat by Pulse 97 Oximetry Exam: GEN: pale looking, sleepy but arousable, not in acute distress Neck: JVP not visible Cardiac: normal S1S2, no murmur Lung: symmetrical chest movement, clear on auscultation Abdomen: soft, LLQ and RLQ tenderness Extremity: bilateral LL edema up to knee, left UL edema Neuro: left side weakness with spasticity. Result Diagrams: 01/22/20 14:27 01/22/20 14:27 EKG Data: EKG: sinus rhythm, HR 93, incomplete LBBB, V1-V3 ST elevation compared with last EKG in 2019. Assessment/Plan - Assessment/Plan Assessment: Lele Fernandez is a 84 y/o male with history of CVA with residual left hemiparesis, CHF, CKD, hypothyroidisim, CAD s/p OR and cardiac arrest, 3 stents and ICD; GERD, HLD, DM, LL DVT and LV thrombus on warfarin , history of compartment syndrome; presented to ED for generalized weakness for 2 days duration. He was found to have Hb at 4, supratherapeutic INR at 8, and positive stool OB, concerning for GI bleeding. We will admit him to ICU for overnight monitoring considering his extremely low Hb with multiple commorbidities and possible ACS concern. He has no any symptoms concerning for COVID19 at this moment, CXR normal. Plan: 1. Anemia likely due to GI bleed - patient had history of GI bleed January 2019, had upper endoscopy, found gastric polyps and removed - no overt bleeding as this moment, last bowel movement 2 days ago - not clear source of bleed at this moment, other DD including retroperitoneal hemorrhage with his supratherapeutic INR level-> we will do CTAP non contrast to rule that out - PRBC transfusion 2U ordered in ED, will do H&H every 4 hours - Hb target will be 8 in view of his ischemic heart disease - consult GI for scope when INR down - iv ppi continuously - hold off oral med, npo 2. Supratherapeutic INR - patient is on warfarin for LL DVT and LV thrombus - IV vitamin K given - will hold off Kcentra since no active overt bleeding - if patient develops active bleeding or Hb still downtrending despite transfusion, will start Kcentra 3. Elevated trop with ST changes - EKG new ST elevation in anterior leads compared with last EKG - patient denied any symptoms though at this moment, but he has multiple risk factors for ACS - will repeat EKG now, and trend trop - hold off antiplt or anticoag due to Hb 4 4. Ischemic cardiomyopathy with EF 20-25% - patient is clinically overloaded with peripheral edema - will give lasix during transfusion - continue daily lasix 5. history of DVT and LV thrombus - reason for jail warfarin - last TTE this year LV thrombus not changing - INR 2-3 6. history of CVA - residual left hemiparesis 7. DM - glucose monitoring - hold off home DM med 8. CKD - stable for now - avoid iv contrast 9. DVT prophylaxis - contraindicated at this moment due to bleeding. Attestation Documenting Resident: Sindy Veronica Attending/Supervising Physician Comment: Mr. Fernandez is an 84 year old man who has an ischemic cardiomyopathy with an LV thrombus and a suspected GI bleed today with a hgb of 4.0. His blood transfusion has been delayed because he was refusing blood, however now agrees to it. Reversal of his INR is tenuous, given that the reason for anticoagulation is an LV thrombus. IV vitamin K given with the expectation that his INR will not normalize, and that a hgb of 4.0 is certainly life- threatening in an elderly man with ischemic cardiomyopathy. Case discussed with Dr. Overton, who is in the ED seeing him now. Will plan to give lasix with blood. I discussed the case with Dr. Schreiber as well, who accepts him to the ICU for closer hemodynamic monitoring given high risk for TACO, and other complications of this profound anemia.
[2020-01-22 16:31] LABS: Acanthocytes 3+; Polychromasia 1+
[2020-01-22] MEDS ORDERED: Furosemide IV* 10 MG/ML VIAL (40 MG) IV ONE (17:23)
[2020-01-22] MEDS ORDERED: Dextrose 50% Syringe 50 ML* 25 GM/50 ML SYRINGE IV PUSH PRN (18:01)
--- NOTE | 2020-01-22 19:26 | CONS ---
GASTROENTEROLOGY CONSULT: DATE: 01/22/20 CONSULTING PHYSICIANS: Sahara Real, Linda Enrique, William Resendiz.* REASON FOR CONSULTATION: Dark stool, weakness, hemoglobin of 4.0, and INR 8.83. HISTORY OF PRESENT ILLNESS: This 84-year-old man with numerous chronic problems including past DC, congestive failure, history of CVA, defibrillator replaced, chronic renal disease with creatinine between 2.5 and 3, GERD with hiatal hernia, chronic warfarin anticoagulation, and a history of fasciotomy of the left leg in 2012, was noted to be weak today. He says he just feels terrible all over. His has noted increasing weakness over several days and then today he was unable to get up and the ambulance was called. He has not had a specific focal complaint. Yesterday, his stool was dark, but not black and he has had tarry stool at some point in the past. 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 A year ago, he had dark red stools and was admitted here and ultimately had 6 units transfusion. He had upper endoscopy where no definite site of bleeding was seen, although a small gastric fundal polyp was removed with cautery and clipped. It was elected not to do a colonoscopy, although the suspicion was that he had a diverticular bleed. In the ensuring year, he has had his INR checked every 2 to 3 weeks by his primary's office. There has not been any wild swings in his INR. There had been small changes made in the dose. The lowest INR recorded in the last year was 1.74, 11/16/19. The highest 4.35 just a week before. At home, his appetite has been plus/minus per his , but that is close to his baseline. There really have not been any major changes. His last visit at his primary office about 2 months ago resulted in no major change that his can recall. Last upper endoscopy January 2019 showed a small hiatal hernia and a gastric polyp , removed as referred to. There was no overt bleeding site. He had upper endoscopy by Dr. Da Silva in 2014, which showed also a hiatal hernia and no gross source of bleeding. Upper endoscopy April 2013, working up falling hemoglobin and dark stools (no overt hemodynamic instability then) just showed the distal esophageal scarring, hiatal hernia, and some minimal gastritis felt to be due to aspirin. He had had a subdural hematoma following a fall a couple of months before that particular admission. PAST MEDICAL HISTORY: 1. Coronary artery disease, status post DC, cardiac arrest, 3 stents and ICD placement. 2. CHF. 3. History of DVT. 4. Stroke - in the remote past. 5. Chronic renal disease. 6. GERD. 7. Diabetes. 8. History of fasciotomy left lower leg. 9. Hypothyroidism. MEDICATIONS: As an outpatient: 1. Warfarin 2 mg, dose varies. 2. Torsemide 40 mg. 3. Carvedilol 3.125 b.i.d. 4. Aspirin 81. 5. Atorvastatin 80. 6. Levothyroxine 50 mcg. 7. Glipizide 2.5. ALLERGIES: Reaction to FFP given 1 year ago. REVIEW OF SYSTEMS: No history of seizure, recent CVA, hemoptysis, TB, hepatitis , jaundice, abdominal surgery. He was on iron for a few months, but this ended about 6 to 8 months ago when he was complaining of constipation. He has noted his MCV has been drifting downwards over the last year from 90, 01/25/19 to the current 80. Iron studies 12/18/19 showed iron 31, TIBC 329, 9% saturation ( normal 15 to 55), and ferritin 27.3. Erythropoietin 1 year ago was 26.4. PHYSICAL EXAM: General: He is an older, frail man, chronically ill appearing, in no overt distress, lying flat at this time. He has numerous small skin nicks and ecchymoses. He is in no overt distress. HEENT exam shows no icterus. He has no adenopathy. The ICD pacer is nontender without erythema. Breath sounds are diminished and effort is poor. Heart sounds are regular at 95. Respirations 22. Blood pressure 102/56. His abdomen shows an umbilical hernia, nontender, not easily reducible. The abdomen is otherwise soft and without guarding or firmness. Rectal: Deferred. Extremities: Show gross 3 to 4+ edema at the ankles, tapering out by the knees. There is an old, well-healed , left calf fasciotomy scar. Pulses could not be felt. LABORATORY DATA: Hemoglobin 4.0, MCV 80 as noted before, platelets 162. Chemistries show sodium 137, potassium 4.5, BUN 81, creatinine 3.09. LFTs: Bilirubin 0.4, alkaline phosphatase 406, a steady climb over the last 10 months. Alkaline phosphatase had been up in 2013. IMPRESSION: This chronically ill, 84-year-old man has a hemoglobin of 4.0. He is not overtly bleeding and with falling MCV, this appears to have been a very slow process that was initially compensated for by taking chronic iron. The iron was stopped a few months ago for the usual reasons. A progressive gastrointestinal blood loss decompensated and this apparently was going to happen even without the increase in INR that is present at this time. The abrupt rise in INR may be due to hepatic dysfunction from right heart failure. There is no other obvious cause for the rapid rise in alkaline phosphatase. He has not had any liver imaging in quite some time. An ultrasound might be warranted. It is hard to see how his clinical condition would permit us to act on findings that might result from a CT scan. He currently is a full code, but it is difficult to see how he would benefit from heroic measures. ADDENDUM: Last liver imaging was gallbladder ultrasound, November 2013, which was a normal exam. [id number]/[facility] #: [id number] [facility] CENTERDiamante
[2020-01-22] MEDS: Pantoprazole* 80 mg IN NS 80 MG/250 ML BAG IV SCH (19:36)
[2020-01-22 20:00] LABS: Hematocrit 12 % (42-52); Hemoglobin 3.8 g/dL (14.0-18.0)
[2020-01-22 20:13] LABS: Urine Appearance Clear; Urine Bilirubin Negative (Negative); Urine Blood Negative (Negative); Urine Color Yellow; Urine Glucose Negative (Negative); Urine Ketones Negative (Negative); Urine Nitrite Negative (Negative); Urine Protein Negative (Negative); Urine Specific Gravity 1.015 (1.010-1.030); Urine Urobilinogen Negative (Negative)
[2020-01-22 20:17] LABS: Troponin I 0.12 ng/mL (<0.03)
[2020-01-22 20:44] LABS: Glucose 148 mg/dL (70-100)
[2020-01-22] MEDS: Insulin LISPRO* 1 UNITS UNIT SUBCUT SCH (20:54)
--- NOTE | 2020-01-22 21:35 | OP ---
Operative Report - Blank - Operative Report Date of Operation: 01/22/20 Note: PRE-OP DX: Hemorrhagic shock POST-OP DX: Same PROCEDURE: Placement of right subclavian central line PERFORMED BY: Ioana Schreiber MD INDICATION: The patient was admitted with GI bleed and severe anemia. Blood was transfused slowly due to history of ischemic cardiomyopathy and EF 15%. He initially was hemodynamically stable but blood pressures continued to trend down. Central line was placed emergently for possible vasopressor support. DESCRIPTION: The patient was placed in Trendelenburg position. A time out was called confirming the patients name, date of , and procedure. The right chest and neck were prepped and draped in the usual sterile fashion. The right subclavian vein was accessed with the needle while aspirating. Once there was venous blood return, the wire was advanced through the needle. Using Seldinger technique, the triple lumen catheter was placed into the vein and advanced to 19 cm at the skin. Blood was drawn back from all ports, and all ports were flushed easily. The catheter was sutured in place. A Biopatch was placed at the insertion site, and a sterile dressing was placed. The patient tolerated the procedure well. Chest xray confirmed the tip was in the superior vena cava, and there were no complications.
[2020-01-22] MEDS ORDERED: Levothyroxine INJ* 100 MCG in D5W 250 ML BAG* 250 ML IV SCH (22:00)
[2020-01-22] MEDS ORDERED: Norepinephrine 16MCG/ML IVPRE* 4,000 MCG/250 ML BAG IV SCH (22:00)
[2020-01-23] MEDS: Insulin LISPRO* 1 UNITS UNIT SUBCUT SCH ×6 (00:29→21:25)
[2020-01-23 00:48] LABS: Troponin I 0.29 ng/mL (<0.03)
--- NOTE | 2020-01-23 00:54 | PN ---
Progress Note - Progress Note Date of Service: 01/23/20 Note: Patient agreeable to PRBCs. Refused FFP due to adverse reaction in the past.
[2020-01-23 04:24] LABS: Hematocrit 19 % (42-52); Hemoglobin 6.6 g/dL (14.0-18.0)
[2020-01-23 04:48] LABS: INR 6.26 (0.82-1.09)
[2020-01-23 05:06] LABS: BUN/Creatinine Ratio 27.1 (8-20); Blood Urea Nitrogen 85 mg/dL (6-24); CO2 Carbon Dioxide 17 mmol/L (22-32); Calcium 7.5 mg/dL (8.6-10.3); EGFR African American 22.9 (>60); Glucose 114 mg/dL (70-100); Sodium 140 mmol/L (135-145)
[2020-01-23 05:09] LABS: Anion Gap 11 mmol/L (2-11); Chloride 112 mmol/L (101-111)
[2020-01-23 05:14] LABS: Troponin I 0.86 ng/mL (<0.03)
[2020-01-23] MEDS ORDERED: Phytonadione Oral Solution* 5 MG/25 ML UDC PO ONE (05:18)
[2020-01-23] MEDS: Pantoprazole* 80 mg IN NS 80 MG/250 ML BAG IV SCH ×2 (05:35→14:30)
[2020-01-23] MEDS ORDERED: Levothyroxine INJ* 100 MCG/5 ML VIAL IV SCH (06:00)
[2020-01-23] MEDS ORDERED: Furosemide IV* 10 MG/ML VIAL (40 MG) IV SCH (09:00)
--- NOTE | 2020-01-23 10:14 | PN ---
Subjective Date of Service: 01/23/20 Interval History: Pt has been feeling weak for quite sometime. Uses a waker at home. drives. Denies melena or BRBPR. Legs chronically swollen. left arm limited mobility due to rotator cuff Objective Active Medications: Carvedilol (Coreg Tab*) 3.125 mg PO BID [facility] Dextrose (D50w Syringe 50 Ml*) 12.5 gm IV PUSH .FOR FS < 60 - SS PRN PRN Reason: FS < 60 Furosemide (Lasix Iv*) 40 mg IV DAILY [facility] Last Admin: 01/23/20 08:27 Dose: 40 mg Pantoprazole Sodium (Protonix Iv Bag*) 80 mg in 250 mls @ 25 mls/hr IV Q10H [facility] Last Admin: 01/23/20 05:35 Dose: 25 mls/hr Insulin Human Lispro (Humalog*) 0 units SUBCUT Q4H [facility]; Protocol Last Admin: 01/23/20 08:27 Dose: 2 unit Levothyroxine Sodium (Synthroid Inj*) 25 mcg IV 0600 [facility] Last Admin: 01/23/20 05:35 Dose: 25 mcg Levothyroxine Sodium (Synthroid Tab*) 50 mcg PO DAILY@0600 [facility] Vital Signs - 8 hr 01/23/20 01/23/20 01/23/20 02:15 02:16 02:30 Temperature 98.4 F 98.4 F 98.6 F Pulse Rate 74 81 92 Respiratory 18 17 18 Rate Blood Pressure 69/54 86/46 98/46 (mmHg) O2 Sat by Pulse 96 96 98 Oximetry 01/23/20 01/23/20 01/23/20 02:45 03:00 03:15 Temperature 98.6 F 98.6 F 98.4 F Pulse Rate 91 87 87 Respiratory 22 20 20 Rate Blood Pressure 100/63 103/41 108/52 (mmHg) O2 Sat by Pulse 96 96 96 Oximetry 01/23/20 01/23/20 01/23/20 03:30 03:46 04:00 Temperature 98.4 F 98.2 F 98.2 F Pulse Rate 90 89 88 Respiratory 22 18 19 Rate Blood Pressure 108/57 106/42 105/45 (mmHg) O2 Sat by Pulse 97 97 97 Oximetry 01/23/20 01/23/20 01/23/20 04:15 04:30 04:45 Temperature 98.2 F 98.4 F 98.4 F Pulse Rate 86 89 92 Respiratory 18 23 22 Rate Blood Pressure 104/50 97/67 114/71 (mmHg) O2 Sat by Pulse 96 97 97 Oximetry 01/23/20 01/23/20 01/23/20 05:00 05:15 05:30 Temperature 98.4 F 98.2 F 98.2 F Pulse Rate 84 88 78 Respiratory 19 19 16 Rate Blood Pressure 104/51 102/50 91/48 (mmHg) O2 Sat by Pulse 97 97 97 Oximetry 01/23/20 01/23/20 01/23/20 05:46 06:00 06:15 Temperature 98.2 F 98.2 F 98.2 F Pulse Rate 100 86 85 Respiratory 22 19 18 Rate Blood Pressure 112/71 101/50 98/58 (mmHg) O2 Sat by Pulse 97 97 98 Oximetry 01/23/20 01/23/20 01/23/20 06:30 06:45 07:00 Temperature 98.2 F 98.1 F 98.2 F Pulse Rate 91 88 83 Respiratory 20 18 21 Rate Blood Pressure 107/65 105/60 101/46 (mmHg) O2 Sat by Pulse 97 97 97 Oximetry 01/23/20 01/23/20 01/23/20 07:15 07:30 07:45 Temperature 98.2 F 98.2 F 98.4 F Pulse Rate 83 85 75 Respiratory 19 20 16 Rate Blood Pressure 107/52 105/71 98/50 (mmHg) O2 Sat by Pulse 97 96 96 Oximetry 01/23/20 01/23/20 01/23/20 08:00 08:15 08:30 Temperature 98.4 F 98.4 F 98.4 F Pulse Rate 79 83 76 Respiratory 19 18 17 Rate Blood Pressure 100/49 102/64 110/46 (mmHg) O2 Sat by Pulse 97 95 97 Oximetry 01/23/20 01/23/20 08:45 09:00 Temperature 98.2 F 98.2 F Pulse Rate 82 77 Respiratory 17 17 Rate Blood Pressure 110/53 105/50 (mmHg) O2 Sat by Pulse 96 97 Oximetry Oxygen Devices in Use Now: None Appearance: 84 yo M in nAD, aAOx3, poor historian Eyes: No Scleral Icterus, PERRLA Ears/Nose/Mouth/Throat: NL Teeth, Lips, Gums, Mucous Membranes Moist Neck: NL Appearance and Movements; NL JVP, Trachea Midline Respiratory: Symmetrical Chest Expansion and Respiratory Effort, Clear to Auscultation Cardiovascular: - - irregular Abdominal: No Hepatosplenomegaly, - - mild distention, soft, NT, BS present Extremities: No Clubbing, Cyanosis, - - b/l +2 pitting edema,scarring on left calf noted Skin: No Nodules or Sclerosis Neurological: Alert and Oriented x 3, - - unable to raise left arm due to rotator cuff problem, flattening of left nasol-labial fold noted, motor in b/l LE's 02/18 Result Diagrams: 01/23/20 04:11 01/23/20 04:11 Microbiology and Other Data: Microbiology 01/22/20 14:52 Stool Occult Blood ([facility]) - Final Stool EKG Data: EKG: sinus rhythm, HR 93, incomplete LBBB, V1-V3 ST elevation compared with last EKG in 2018. 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 Due to allergic reaction to FFP in 2018 pt had been refusing FFP's cont PPI drip. EGD 01/23/19 showed gastric polyps. Clipped. this time GI following, but recommended med management (2) CAD (coronary artery disease) Comment: - Continue carvedilol 3.125 mg bid; statin. holding ASA due to GI bleed (3) CKD (chronic kidney disease) Comment: - CKD stage 4 -creat close to baseline (4) Diabetes Comment: - glyburide on hold. SSI. (5) Hypothyroid Comment: - Continue levoxyl (6) Mural thrombus of cardiac apex Comment: - Reported by Dr. 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 On warfarin since then. Warfarin now on hold. Echo done 12/2018 showed nl LVEF. - Ok to withold his warfarin for now in the setting of acute GI bleed (7) DVT (deep venous thrombosis) Comment: h/o chronic DVT in left leg , will recheck dopplers (8) Chronic systolic CHF (congestive heart failure) Comment: cont Lasix IV daily post PRBC today (9) DVT prophylaxis Comment: - SCD only due to GI bleed
[2020-01-23 10:42] LABS: Hematocrit 18 % (42-52); Hemoglobin 6.2 g/dL (14.0-18.0); Mean Corpuscular HGB Conc 34 g/dL (31-36); Mean Corpuscular Hemoglobin 28 pg (27-31); Mean Corpuscular Volume 82 fL (80-94); Mean Platelet Volume 7.8 fL (7.4-10.4); Platelet Count 151 10^3/uL (150-450); Red Blood Count 2.24 10^6 /uL (4.18-5.48); Red Cell Distribution Width 18 % (10-15); White Blood Count 12.4 10^3/uL (3.5-10.8)
[2020-01-23 10:43] LABS: ABS Basophils 0.1 10^3/ul (0-0.2); ABS Eosinophils 0.2 10^3/ul (0-0.6); ABS Lymphocytes 1.3 10^3/ul (1.0-4.8); ABS Monocytes 1.4 10^3/ul (0-0.8); ABS Neutrophils 9.3 10^3/ul (1.5-7.7); Eosinophil % 1.8 %; Lymphocyte % 10.9 %; Nucleated Red Blood Cells % 0.2
[2020-01-23 11:08] LABS: Troponin I 1.61 ng/mL (<0.03)
[2020-01-23] MEDS ORDERED: Perflutren Lipid Microsphere* 3 ML VIAL ONE ×3 (11:25→13:40)
[2020-01-23] MEDS: Levothyroxine TAB* 50 MCG TAB PO SCH (11:59)
[2020-01-23] MEDS: Carvedilol TAB* 6.25 MG PO SCH ×3 (11:59→21:11)
[2020-01-23] MEDS: Phytonadione Oral Solution* 5 MG/25 ML UDC PO ONE ×2 (13:00→13:42)
--- NOTE | 2020-01-23 15:01 | ECHO ---
*[facility]* [place] [address] Fax #: [phone] Transthoracic Echocardiogram Patient: Lele Fernandez : 1935 Study Date: 01/23/2020 Age: 84 Gender: M HR: 111 bpm Height: 68 in /172.7 cm BSA: 1.93 m^2 Weight: 173.6 lb /78.9 kg BMI: 26.5 kg/m^2 *Front Edger: * Nadeen Johnson [facility] *Referring Physician: * Mady Gorman *Reading Physician: * Yumiko Torrez MD Indications: Congestive Heart Failure. History: Left ventricle thrombus. Coronary artery disease. PMH: Myocardial infarction. Cardiomyopathy. Risk factors: Hypertension. Diabetes mellitus. Dyslipidemia. Labs, prior tests, procedures, and surgery: Catheterization. There was a stenosis which was treated with a stent. ICD system implantation. Conclusions Summary: - Procedure narrative: Image quality was poor. - Left ventricle: The cavity size is normal. Wall thickness is mildly increased. Systolic function is severely reduced. The estimated ejection fraction is 15-20%. Base of the posterior wall moves best. Severe global hypokinesis, apex appears akinetic. Hypokinesis of the mid-apical anteroseptal, anterior, and anterolateral myocardium. Cannot exclude a thrombus on the basis of this exam, thrombus versus false tendon. - Right ventricle: The cavity size is normal. Wall thickness is increased. Systolic function is normal and vigorous. - Mitral valve: There is trace regurgitation. - Pulmonary arteries: Systolic pressure can not be accurately estimated. - Compared with prior echocardiogram of December 24, 2019, ejection fraction previously 20-25%, apical thrombus noted at that time. Aorta 3.8 cm. Study data: Transthoracic echocardiogram. Procedure: Transthoracic echocardiography was performed. Image quality was poor. Intravenous Definity , 4 mls was administered but infiltrated with 2 different IVs. An additional 2 mls of Definity was administered successfully through a new IV. Image enhancement administered by Shon Hernandes RN. Complete 2D, spectral Doppler, and color flow Doppler. Location: ICU Patient status: Inpatient. Patient room number: 2. Rhythm: Normal sinus rhythm with PVC's. Findings Left ventricle: The cavity size is normal. Wall thickness is mildly increased. Systolic function is severely reduced. The estimated ejection fraction is 15-20%. Cannot exclude a thrombus on the basis of this exam. Regional wall motion abnormalities: Base of the posterior wall moves best. Severe global hypokinesis, apex appears akinetic. Hypokinesis of the mid-apical anteroseptal, anterior, and anterolateral myocardium. Hypokinesis of the apical myocardium. Doppler parameters are consistent with abnormal left ventricular relaxation (grade 1 diastolic dysfunction). Right ventricle: The cavity size is normal. Wall thickness is increased. Pacer wire noted in the right ventricle. Systolic function is normal and vigorous. Left atrium: The atrium is mildly dilated. Right atrium: The atrium is normal in size. Pacer wire noted in right atrium. Mitral valve: The leaflets are normal thickness. There is no evidence of stenosis. There is trace regurgitation. Aortic valve: The valve is trileaflet. The leaflets are normal thickness. There is no evidence of stenosis. There is no significant regurgitation. Tricuspid valve: The leaflets are normal thickness. There is no evidence of stenosis. There is no significant regurgitation. Pulmonic valve: The leaflets are normal thickness. There is no evidence of stenosis. There is trace regurgitation. Aorta: Aortic root: The aortic root is mildly dilated. Ascending aorta: The ascending aorta is appears normal. Aortic arch: The aortic arch is poorly visualized. Pericardium: A trace pericardial effusion is identified. Pulmonary arteries: Systolic pressure can not be accurately estimated. Systemic veins: Inferior vena cava: The vessel is dilated. There is (< 50%) respiratory change in the IVC dimension. Measurements Left ventricle Value Ref Right atrium continued Value Ref LATOYA, LAX 4.4 cm 4.2 - 5.8 ML dim, ES, A4C 3.8 cm 2.6 - 4.4 ESD, LAX 4.0 cm 2.5 - 4.0 Estimated RAP 8 mm Hg --------- FS, LAX (L) 10 % 25 - 43 PW, ED, LAX (H) 1.2 cm 0.6 - 1.0 Aortic valve Value Ref E', lat jimmie, TDI (L) 6.8 cm/sec >=10.0 Jimmie diam, ED 2.4 cm - -------- E/e', lat jimmie, 11 Peak v, S 1.09 m/sec ---- ----- TDI VTI, S 22.1 cm --------- E', med jimmie, TDI (L) 4.8 cm/sec >=7.0 Mean grad, S 3.0 mm Hg - -------- E/e', med jimmie, 16 Peak grad, S 5.0 mm Hg ---- ----- TDI LVOT/AV, VTI ratio 0.81 --------- E', avg, TDI 5.8 cm/sec E/e', avg, TDI 13 <=14 Mitral valve Value R ef Peak E 0.77 m/sec --------- LVOT Value Ref Peak A 1.11 m/sec --------- Peak noe, S 0.8 m/sec Decel time 92 ms --------- VTI, S 18.0 cm Peak grad, D 2.4 mm Hg --------- Peak grad, S 3 mm Hg Peak E/A ratio 0.7 --------- Mean grad, S 1 mm Hg Pulmonic valve Value Ref Ventricular septum Value Ref Peak v, S 0.83 m/sec --------- IVS, ED (H) 1.3 cm 0.6 - 1.0 Peak grad, S 3.0 mm Hg --------- Right ventricle Value Ref Aortic root Value Ref LATOYA, LAX 2.2 cm Root diam 3.5 cm <4.1 LATOYA minor ax, (H) 3.9 cm 1.9 - 3.5 Root max diam/bsa, 1.8 cm/m^2 1.3 - 2.1 A4C mid ED Left atrium Value Ref Ascending aorta Value Ref AP dim, ES (H) 4.10 cm 3.00 - AAo AP diam, S 3.4 cm --------- 4.00 AAo AP diam/bsa, S 1.8 cm/m^2 --------- ML dim, A4C 4.8 cm SI dim, A4C 5.1 cm Inferior vena cava Value Ref Vol/bsa, ES, A/L (H) 35 ml/m^2 16 - 34 Diam 2.2 cm --------- Right atrium Value Ref SI dim, ES 4.5 cm 3.4 - 5.3 Legend: (L) and (H) beau values outside specified reference range. Prepared and electronically signed by Yumiko Torrez MD 01/23/2020 15:01
--- NOTE | 2020-01-23 16:10 | PN ---
Progress Note - Progress Note Date of Service: 01/23/20 Note: GASTROENTEROLOGY FOLLOW-UP IE/S: - Transferred out of of ICU. - Received 2 units of blood. FFP listed in blood bank tab, although I do not believe this was transfused. - No reported melena per ICU or floor nursing team. - Patient denies any particular complaints. Seems a bit confused today, although this may be due to [id number] state. O: AF, HR 70's-80's, SBP 90's-100's/50's, 99% RA. Gen: Frail appearing elderly gentleman. HEENT: Small amount of dried blood on lips. CV: RRR Pulm: Breathing comfortably. Abd: Soft, NT/ND. Labs reviewed. INR 6.26 Hgb 3.8 > 6.6 > 6.2 Troponin 0.29 > 0.86 > 1.61 A/P: 84yM w/ 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 and ischemic cardiomyopathy (EF 15-20%), who is admitted w/ severe anemia and supra-therapeutic INR (8.82). No overt GI bleeding reported. Hemodynamically stable. H/H still remains low. Receiving additional transfusion( s). - Continue to monitor CBC every 8 hours. Transfuse per primary team. Goal Hgb likely 8 given elevated troponin and CAD. - Continue to monitor INR every 12-24 hours. Patient declining FFP due to reported allergy, although the details of this are unclear. May still be able to consider FFP in urgent scenario depending on severity of FFP reaction -- request clarification on reaction if possible. - Patient is high risk candidate for sedation and endoscopy given age, frailty, and significant cardiac disease (EF 15-20% per today's TTE) w/ low but rising troponin. Would favor supportive care and observation. Hopefully, patient's H/H will remain stable once INR is improved. If progressive anemia remains an ongoing issue, then risk/benefit discussion should be had with patient re: continuing anticoagulation. Of note, patient's contacted GI clinic requesting callback to discuss 's case. I tried several times today to contact her by phone without success. Va Orr MD Gastroenterology
[2020-01-23 20:17] LABS: Hematocrit 20 % (42-52); Hemoglobin 6.8 g/dL (14.0-18.0)
[2020-01-24] MEDS: Insulin LISPRO* 1 UNITS UNIT SUBCUT SCH ×6 (01:07→20:46)
[2020-01-24] MEDS: Pantoprazole* 80 mg IN NS 80 MG/250 ML BAG IV SCH ×3 (01:25→22:31)
[2020-01-24 05:12] LABS: Hematocrit 22 % (42-52); Hemoglobin 7.4 g/dL (14.0-18.0); Mean Corpuscular HGB Conc 34 g/dL (31-36); Mean Corpuscular Hemoglobin 29 pg (27-31); Mean Corpuscular Volume 84 fL (80-94); Mean Platelet Volume 7.8 fL (7.4-10.4); Platelet Count 117 10^3/uL (150-450); Red Cell Distribution Width 17 % (10-15); White Blood Count 10.1 10^3/uL (3.5-10.8)
[2020-01-24 05:20] LABS: INR 1.89 (0.82-1.09)
[2020-01-24 05:28] LABS: BUN/Creatinine Ratio 26.2 (8-20); Blood Urea Nitrogen 83 mg/dL (6-24); CO2 Carbon Dioxide 17 mmol/L (22-32); Calcium 7.3 mg/dL (8.6-10.3); EGFR African American 22.7 (>60); EGFR Non-African American 18.8 (>60); Glucose 120 mg/dL (70-100); Potassium 3.4 mmol/L (3.5-5.0); Sodium 141 mmol/L (135-145)
[2020-01-24 05:29] LABS: Anion Gap 9 mmol/L (2-11); Chloride 115 mmol/L (101-111)
[2020-01-24 05:33] LABS: Troponin I 1.23 ng/mL (<0.03)
[2020-01-24] MEDS: Levothyroxine TAB* 50 MCG TAB PO SCH (07:23)
[2020-01-24] MEDS: KCL 20 MEQ/100 ML IVPREMIX* 20 MEQ/100 ML BAG IV SCH ×2 (10:08→15:46)
[2020-01-24] MEDS: Atorvastatin* 80 MG TAB PO SCH (12:22)
[2020-01-24] MEDS: Carvedilol TAB* 6.25 MG PO SCH ×2 (12:22→20:43)
[2020-01-24] MEDS: Torsemide TAB* 20 MG PO SCH (12:23)
--- NOTE | 2020-01-24 13:49 | PN ---
Progress Note - Progress Note Date of Service: 01/24/20 Note: pt asleep, easily awoken, denies pain, no bm yet today, no abd pain, hungry VS; 97.7, 110/47, 83, 20, 96% on ra nad, alert +bs, soft, nt/nd hgb 6.8---->7.4, plt 117, INR 6.26--->1.89, BUN 83--->85, trop 1.23 84 yo male with multiple medical issues, frail, h/o anemia, presenting with recurrent anemia in the setting of INR of 8 currently no s/s of GI bleeding; Hgb stable, no bm, VSS agree with conservative care given underlying issues, and current situation GI to follow will call his to update Ángel Crabtree MD
--- NOTE | 2020-01-24 14:04 | PN ---
Subjective Date of Service: 01/24/20 Interval History: Pt is asleep, resists eye opening, pulls away from examiner and pulls the cover on , not cooperative with exam, nonverbal Objective Active Medications: Atorvastatin Calcium (Lipitor*) 80 mg PO DAILY [facility] Last Admin: 01/24/20 12:22 Dose: Not Given Carvedilol (Coreg Tab*) 3.125 mg PO BID [facility] Last Admin: 01/24/20 12:22 Dose: Not Given Dextrose (D50w Syringe 50 Ml*) 12.5 gm IV PUSH .FOR FS < 60 - SS PRN PRN Reason: FS < 60 Pantoprazole Sodium (Protonix Iv Bag*) 80 mg in 250 mls @ 25 mls/hr IV Q10H [facility] Last Admin: 01/24/20 13:24 Dose: 25 mls/hr Insulin Human Lispro (Humalog*) 0 units SUBCUT Q4H [facility]; Protocol Last Admin: 01/24/20 10:02 Dose: Not Given Levothyroxine Sodium (Synthroid Tab*) 50 mcg PO DAILY@0600 [facility] Last Admin: 01/24/20 07:23 Dose: Not Given Melatonin (Melatonin) 3 mg PO BEDTIME [facility] Sodium Bicarbonate (Sodium Bicarbonate (Antacid)*) 650 mg PO AC [facility] Torsemide (Demadex*) 40 mg PO DAILY [facility] Last Admin: 01/24/20 12:23 Dose: Not Given Vital Signs - 8 hr 01/24/20 07:46 Temperature 97.7 F Pulse Rate 83 Respiratory 20 Rate Blood Pressure 110/47 (mmHg) O2 Sat by Pulse 96 Oximetry Oxygen Devices in Use Now: None Appearance: pt is nonverbal, pulls the covers back on when attemped to be examined, not following commands Eyes: No Scleral Icterus, PERRLA Ears/Nose/Mouth/Throat: NL Teeth, Lips, Gums, Mucous Membranes Moist Neck: NL Appearance and Movements; NL JVP, Trachea Midline Respiratory: Symmetrical Chest Expansion and Respiratory Effort, Clear to Auscultation Cardiovascular: NL Sounds; No Murmurs; No JVD, RRR Abdominal: NL Sounds; No Tenderness; No Distention Lymphatic: No Cervical Adenopathy Extremities: No Clubbing, Cyanosis, - - +1 pitting pedal edema b/l Neurological: - - withdraws to pain equally in all extremities Result Diagrams: 01/24/20 04:50 01/24/20 04:50 Microbiology and Other Data: Microbiology 01/22/20 14:52 Stool Occult Blood ([facility]) - Final Stool EKG Data: EKG: sinus rhythm, HR 93, incomplete LBBB, V1-V3 ST elevation compared with last EKG in 2019. 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 Due to allergic reaction to FFP in 01/2019 pt had been refusing FFP's cont PPI drip. EGD 01/23/19 showed gastric polyps. Clipped. this time GI following, but recommended med management (3) CAD (coronary artery disease) Comment: - Continue carvedilol 3.125 mg bid; statin. holding ASA due to GI bleed (4) CKD (chronic kidney disease) Comment: - CKD stage 4 -creat close to baseline -matabolic acidosis developed due to CKD and IVF -will start sodium bicarb supplementation (5) Diabetes Comment: - glyburide on hold. SSI. (6) Hypothyroid Comment: - Continue levoxyl (7) Mural thrombus of cardiac apex Comment: - Reported by Dr. Brennre to have been observed on [facility] 10/2012 following a CVA. On warfarin since then. Warfarin now on hold. Echo done 01/23/20 showed old LV thrombus and EF 15%, unchanged from prior - Ok to withold his warfarin for now in the setting of acute GI bleed (8) DVT (deep venous thrombosis) Comment: h/o chronic DVT in left leg , dopplers neg for DVT this hospital stay (9) Chronic systolic CHF (congestive heart failure) Comment: restarted home torsemide (10) DVT prophylaxis Comment: - SCD only due to GI bleed
[2020-01-24] MEDS ORDERED: NS 0.9% 1000 ML** 1,000 ML IV SCH (14:15)
[2020-01-24] MEDS: Sodium Bicarbonate (ANTACID)* 650 MG TAB PO SCH ×2 (14:42→17:30)
[2020-01-24] MEDS: Melatonin 3 MG TAB PO SCH (20:43)
[2020-01-25] MEDS: Insulin LISPRO* 1 UNITS UNIT SUBCUT SCH ×4 (00:41→20:17)
[2020-01-25] MEDS: Pantoprazole* 80 mg IN NS 80 MG/250 ML BAG IV SCH ×4 (01:52→15:13)
[2020-01-25] MEDS: Levothyroxine TAB* 50 MCG TAB PO SCH (05:59)
[2020-01-25 06:06] LABS: ABS Basophils 0.1 10^3/ul (0-0.2); ABS Eosinophils 0.5 10^3/ul (0-0.6); ABS Monocytes 1.8 10^3/ul (0-0.8); ABS Neutrophils 7.9 10^3/ul (1.5-7.7); Hematocrit 24 % (42-52); Hemoglobin 7.8 g/dL (14.0-18.0); Mean Corpuscular HGB Conc 33 g/dL (31-36); Mean Corpuscular Hemoglobin 28 pg (27-31); Mean Corpuscular Volume 84 fL (80-94); Mean Platelet Volume 7.7 fL (7.4-10.4); Nucleated Red Blood Cells % 0.1; Platelet Count 112 10^3/uL (150-450); Red Blood Count 2.78 10^6 /uL (4.18-5.48); Red Cell Distribution Width 18 % (10-15); White Blood Count 12.3 10^3/uL (3.5-10.8)
[2020-01-25 06:12] LABS: INR 1.49 (0.82-1.09)
[2020-01-25 06:20] LABS: BUN/Creatinine Ratio 22.9 (8-20); Calcium 7.6 mg/dL (8.6-10.3); EGFR African American 27.2 (>60); EGFR Non-African American 22.5 (>60); Potassium 3.8 mmol/L (3.5-5.0)
[2020-01-25] MEDS: Carvedilol TAB* 6.25 MG PO SCH ×3 (09:01→23:25)
[2020-01-25] MEDS: Sodium Bicarbonate (ANTACID)* 650 MG TAB PO SCH ×4 (09:01→15:13)
[2020-01-25] MEDS: Torsemide TAB* 20 MG PO SCH ×2 (09:02→12:13)
[2020-01-25] MEDS: Atorvastatin* 80 MG TAB PO SCH ×2 (09:02→12:13)
--- NOTE | 2020-01-25 10:58 | PN ---
Subjective Date of Service: 01/25/20 Interval History: Pt requests to go home, refuses to answer questions, states :"leave me alone", sitting at the edge of bed Objective Active Medications: Atorvastatin Calcium (Lipitor*) 80 mg PO DAILY [facility] Last Admin: 01/24/20 12:22 Dose: Not Given Carvedilol (Coreg Tab*) 3.125 mg PO BID [facility] Last Admin: 01/24/20 20:43 Dose: 3.125 mg Dextrose (D50w Syringe 50 Ml*) 12.5 gm IV PUSH .FOR FS < 60 - SS PRN PRN Reason: FS < 60 Pantoprazole Sodium (Protonix Iv Bag*) 80 mg in 250 mls @ 25 mls/hr IV Q10H [facility] Last Admin: 01/25/20 08:50 Dose: Not Given Levothyroxine Sodium (Synthroid Tab*) 50 mcg PO DAILY@0600 [facility] Last Admin: 01/25/20 05:59 Dose: 50 mcg Melatonin (Melatonin) 3 mg PO BEDTIME [facility] Last Admin: 01/24/20 20:43 Dose: 3 mg Sodium Bicarbonate (Sodium Bicarbonate (Antacid)*) 650 mg PO AC [facility] Last Admin: 01/25/20 10:22 Dose: Not Given Torsemide (Demadex*) 40 mg PO DAILY [facility] Last Admin: 01/24/20 12:23 Dose: Not Given Vital Signs - 8 hr 01/25/20 01/25/20 03:17 07:35 Temperature 98.2 F 98.5 F Pulse Rate 92 90 Respiratory 18 18 Rate Blood Pressure 113/57 114/52 (mmHg) O2 Sat by Pulse 98 99 Oximetry Oxygen Devices in Use Now: None Appearance: 84 yo M in nAD, oriented to self only, not cooperating with exam Eyes: No Scleral Icterus, PERRLA Ears/Nose/Mouth/Throat: NL Teeth, Lips, Gums, Mucous Membranes Moist Neck: NL Appearance and Movements; NL JVP, Trachea Midline Respiratory: Symmetrical Chest Expansion and Respiratory Effort, - - crackles at b/l bases Cardiovascular: RRR Abdominal: NL Sounds; No Tenderness; No Distention Lymphatic: No Cervical Adenopathy Extremities: No Clubbing, Cyanosis, - - +1 pedal edema b/l Skin: No Rash or Ulcers, No Nodules or Sclerosis Neurological: NL Muscle Strength and Tone Result Diagrams: 01/25/20 05:45 01/25/20 05:45 Microbiology and Other Data: Microbiology 01/22/20 14:52 Stool Occult Blood (LOLA) - Final Stool EKG Data: EKG: sinus rhythm, HR 93, incomplete LBBB, V1-V3 ST elevation compared with last EKG in 2019. 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 Due to allergic reaction to FFP in 01/2019 pt refused FFP's cont PPI drip. EGD 01/23/19 showed gastric polyps. Clipped. GI following, but recommended med management (3) CAD (coronary artery disease) Comment: - Continue carvedilol 3.125 mg bid; statin. holding ASA due to GI bleed (4) CKD (chronic kidney disease) Comment: - CKD stage 4 -creat close to baseline -matabolic acidosis developed due to CKD and IVF -will start sodium bicarb supplementation (5) Diabetes Comment: - glyburide on hold. SSI. (6) Hypothyroid Comment: - Continue levoxyl (7) Mural thrombus of cardiac apex Comment: - Reported by Dr. 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 On warfarin since then. Warfarin now on hold. Echo done 01/23/20 showed old LV thrombus and EF 15%, unchanged from prior - Ok to withold his warfarin for now in the setting of acute GI bleed, will d/w cards and GI when to restart coumadin (8) DVT (deep venous thrombosis) Comment: h/o chronic DVT in left leg , dopplers neg for DVT this hospital stay (9) Chronic systolic CHF (congestive heart failure) Comment: restarted home torsemide (10) DVT prophylaxis Comment: - SCD only due to GI bleed Status and Disposition: inpatient, pt is not cooperative enough to start PT
--- NOTE | 2020-01-25 13:30 | PN ---
Progress Note - Progress Note Date of Service: 01/25/20 Note: GASTROENTEROLOGY FOLLOW-UP IE/S: - No transfusions since 01/22. Hgb 7.4 > 7.8. - No overt GI bleeding noted. No stools charted. - Patient upset this AM. Wants to go home. Denies any specific complaints. Per nursing, patient has been agitated and confused for past day. No confusion reported at baseline. O: AF, HR 80's, SBP 110's-120's/50's, 98% RA. Gen: Frail appearing elderly gentleman. Sitting on edge of bed. Mildly agitated. Declines exam. Labs reviewed. 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 No overt GI bleeding reported. Hemodynamically stable. H/H stable. No overt bleeding reported. No bowel movement since admission. Hospital course complicated by delirium/confusion. - Continue to monitor CBC every 24 hours. - INR now <2. - Recommend bowel regimen given no BM in 3 days. - Can advance diet as tolerated. - Continue PPI BID. Can switch to po BID tmrw if he remains stable. - Patient is high risk candidate for sedation and endoscopy given age, frailty, and significant cardiac disease (EF 15-20% per updated TTE) w/ troponin bump on admission. Recommend supportive care and observation. 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 High risk for recurrent bleeding as source of anemia has not been identified. Additionally, this is his second GI bleed in admission (01/2019 and 01/2020) for which clear source has not been identified. Unclear how his INR became so supratherapeutic. Risk/benefit discussion may favor discontinuing anticoagulation given the above factors. Note: Patient was hospitalized with acute anemia in 01/2019 [address] transfusions. EGD by Dr Overton during that admission demonstrated small benign gastric polyp w/ small amount of oozing at one spot. This polyp was removed with snare. Clip placed at polypectomy site. It is not clear that this small polyp would have been explanation for a GI bleed requiring 5 units of blood. Please contact GI with any acute clinical change. Va Orr MD
[2020-01-25] MEDS: Warfarin TAB(*) 2 MG PO SCH (17:04)
[2020-01-25] MEDS ORDERED: Docusate CAP* 100 MG PO PRN (21:36)
[2020-01-25] MEDS: Melatonin 3 MG TAB PO SCH (23:25)
[2020-01-25] MEDS: Pantoprazole TAB * 40 MG TAB PO SCH (23:26)
[2020-01-26] MEDS: Levothyroxine TAB* 50 MCG TAB PO SCH (04:50)
[2020-01-26 04:54] LABS: INR 1.41 (0.82-1.09)
[2020-01-26 05:04] LABS: BUN/Creatinine Ratio 19.9 (8-20); Calcium 7.8 mg/dL (8.6-10.3); Potassium 4.2 mmol/L (3.5-5.0)
[2020-01-26] MEDS: Pantoprazole TAB * 40 MG TAB PO SCH ×2 (08:42→20:40)
[2020-01-26] MEDS: Carvedilol TAB* 6.25 MG PO SCH ×2 (08:44→20:40)
[2020-01-26] MEDS: Sodium Bicarbonate (ANTACID)* 650 MG TAB PO SCH ×3 (08:52→17:14)
[2020-01-26] MEDS: Torsemide TAB* 20 MG PO SCH (08:53)
[2020-01-26] MEDS: Atorvastatin* 80 MG TAB PO SCH (08:53)
[2020-01-26] MEDS: Insulin LISPRO* 1 UNITS UNIT SUBCUT SCH ×2 (08:53→20:54)
--- NOTE | 2020-01-26 10:25 | PN ---
Subjective Date of Service: 01/26/20 Interval History: 84 year old man with mild dementia, LV thrombus and DVT on coumadin admitted with supratherapeutic INR and profound anemia. Transfused and Hgb stable. Heme positive stools, no plan for endoscopy. Denies pain, appetite is good, no fever, rash, or diarrhea. Only concern is that he is angry he hasn't seen PT yet. Objective Active Medications: Atorvastatin Calcium (Lipitor*) 80 mg PO DAILY [facility] Last Admin: 01/26/20 08:53 Dose: Not Given Carvedilol (Coreg Tab*) 3.125 mg PO BID [facility] Last Admin: 01/26/20 08:44 Dose: 3.125 mg Dextrose (D50w Syringe 50 Ml*) 12.5 gm IV PUSH .FOR FS < 60 - SS PRN PRN Reason: FS < 60 Docusate Sodium (Colace Cap*) 100 mg PO BID PRN PRN Reason: CONSTIPATION Last Admin: 01/26/20 04:50 Dose: 100 mg Insulin Human Lispro (Humalog*) 0 units SUBCUT BID [facility]; Protocol Last Admin: 01/26/20 08:53 Dose: Not Given Levothyroxine Sodium (Synthroid Tab*) 50 mcg PO DAILY@0600 [facility] Last Admin: 01/26/20 04:50 Dose: 50 mcg Melatonin (Melatonin) 3 mg PO BEDTIME [facility] Last Admin: 01/25/20 23:25 Dose: Not Given Pantoprazole Sodium (Protonix Tab*) 40 mg PO BID [facility] Last Admin: 01/26/20 08:42 Dose: 40 mg Sodium Bicarbonate (Sodium Bicarbonate (Antacid)*) 650 mg PO AC [facility] Last Admin: 01/26/20 08:52 Dose: Not Given Torsemide (Demadex*) 40 mg PO DAILY [facility] Last Admin: 01/26/20 08:53 Dose: Not Given Warfarin Sodium (Coumadin Tab(*)) 2 mg PO DAILY@1700 [facility]; Protocol Last Admin: 01/25/20 17:04 Dose: 2 mg Vital Signs - 8 hr 01/26/20 01/26/20 01/26/20 04:00 07:54 08:53 Temperature 36.6 C 36.8 C Pulse Rate 97 95 Respiratory 20 16 20 Rate Blood Pressure 146/62 124/61 (mmHg) O2 Sat by Pulse 100 100 Oximetry Oxygen Devices in Use Now: None Appearance: no distress Eyes: No Scleral Icterus, PERRLA Ears/Nose/Mouth/Throat: NL Teeth, Lips, Gums Neck: NL Appearance and Movements; NL JVP Respiratory: Symmetrical Chest Expansion and Respiratory Effort, Clear to Auscultation Cardiovascular: NL Sounds; No Murmurs; No JVD, RRR, No Edema Abdominal: NL Sounds; No Tenderness; No Distention Lymphatic: No Cervical Adenopathy Extremities: No Edema Skin: No Rash or Ulcers, - - eccymoses right arm Neurological: - - awake, alert, Ox1 Lines/Tubes/Other Access: Clean, Dry and Intact [place] Result Diagrams: 01/25/20 05:45 01/26/20 04:35 Microbiology and Other Data: Microbiology 01/22/20 14:52 Stool Occult Blood (LOLA) - Final Stool EKG Data: EKG: sinus rhythm, HR 93, incomplete LBBB, V1-V3 ST elevation compared with last EKG in 2019. 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, HTN, ischemic cardiomyopathy , EF 20%, chronic systolic CHF, s/p ICD presents with weakness and Hb of 4 - Patient Problems (1) Thrombocytopenia Current Visit: Yes Status: Acute Code(s): D69.6 - THROMBOCYTOPENIA, UNSPECIFIED SNOMED Code(s): 158878713 (2) DVT (deep venous thrombosis) Current Visit: Yes Status: Acute Code(s): I82.409 - ACUTE EMBOLISM AND THOMBOS UNSP DEEP VN UNSP LOWER EXTREMITY SNOMED Code(s): 287122104 Comment: h/o chronic DVT in left leg , dopplers neg for DVT this hospital stay (3) Acute blood loss anemia Current Visit: No Status: Acute Code(s): D62 - ACUTE POSTHEMORRHAGIC ANEMIA SNOMED Code(s): 501092618 Comment: - From GI bleed BRBPR and melena - Received 6U PRBC's by 01/23 pm, 1 U FFP. Allergic reaction to FFP, Blood Bank staff recommend diphenhydramine before FFP for him. Received 5 mg vit K 01/18, [facility]centra. - s/p PPI drip 01/20. EGD 01/23/19 showed gastric polyps. Clipped. transitioned to PO protonix and continue to monitor H/H. (4) CAD (coronary artery disease) Current Visit: No Status: Acute Code(s): I25.10 - ATHSCL HEART DISEASE OF [place] CORONARY ARTERY W/O ANG PCTRS SNOMED Code(s): 65654064 Comment: - Continue carvedilol 3.125 mg bid; statin. holding ASA due to GI bleed (5) CKD (chronic kidney disease) Current Visit: No Status: Acute Code(s): N18.9 - CHRONIC KIDNEY DISEASE, UNSPECIFIED SNOMED Code(s): 896109845 Comment: - CKD stage 4 -creat close to baseline -matabolic acidosis developed due to CKD and IVF -will start sodium bicarb supplementation (6) Diabetes Current Visit: No Status: Acute Code(s): E11.9 - TYPE 2 DIABETES MELLITUS WITHOUT COMPLICATIONS SNOMED Code(s): 40364313 Comment: - glyburide on hold. SSI. (7) GI bleed Current Visit: No Status: Acute Code(s): K92.2 - GASTROINTESTINAL HEMORRHAGE , UNSPECIFIED SNOMED Code(s): 04092562 Comment: - From GI bleed BRBPR and melena - Received total of 4U PRBC's . Due to allergic reaction to FFP in 01/2019 pt refused FFP's cont PPI drip. EGD 01/23/19 showed gastric polyps. Clipped. GI following, but recommended med management (8) Mural thrombus of cardiac apex Current Visit: No Status: Acute Code(s): I51.3 - INTRACARDIAC THROMBOSIS, NOT ELSEWHERE CLASSIFIED SNOMED Code(s): 09664672 Comment: - Reported by Dr. 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 On warfarin since then. Warfarin restarted 01/24. Echo done showed old LV thrombus and EF 15%, unchanged from prior Status and Disposition: inpatient, pt is not cooperative enough to start PT
[2020-01-26] MEDS: Warfarin TAB(*) 2 MG PO SCH (17:14)
[2020-01-26] MEDS: Melatonin 3 MG TAB PO SCH (20:40)
--- NOTE | 2020-01-27 03:56 | PN ---
Hospitalist Progress Note Date of Service: 01/27/20 HOSPITALIST ADDENDUM Called by RN because patient is less responsive. Mr Fernandez is an 84yo M with PMH of CVA with residual left hemiparesis, CHF EF 10-15%, CKD stage 3 to 4, hypothyroidisim, CAD s/p CA and cardiac arrest, 3 stents and ICD; GERD, HLD, DM, LL DVT, mural thrombus, who presented to ED with c/o weakness, found to have Hb 4. Anemia thought to be secondary to GI bleed in the setting of INR 8.8, s/p 4 PRBCs. Per progress note, patient was AAOx1 earlier today. Per RN, patient is usually awake and communicative and this is a marked change in condition. At 2 AM he was noted to be his usual. At 3:40 AM he was noted to be less responsive when VS were checked. Patient is an elderly gentleman sitting up in a recliner in NAD, slumped to the right, although this is described as not unusual. CVS: normal S1 and S2, RRR Chest: BS+ bilaterally with no added sounds Neuro: lethargic, responds to pain. Left nasolabial fold is flattened, but this is not a new finding. Pupils are equal and reactive to light. Does not follow commands. A/P: - Check CT brain stat. - Repeat labs.
--- NOTE | 2020-01-27 04:25 | PN ---
Hospitalist Progress Note Date of Service: 01/27/20 Code [place] Note 0420 Code Wu called 0425 Called [facility] Stroke [address] Ugalde [address]448 Dr Ugalde called [facility] and performed his evaluation. Possible left hemisphere vs pontine CVA or non witnessed seizure and now post ictal. CTA contraindicated due to CKD. Recommended MRI brain/MRA head. Multiple phone calls to went to [facility]. [address] Martell for MRI/MRA approval, but unfortunately patient has an ICD and studies were cancelled. Transferred to ICU for further monitoring. Will continue to try to reach .
[2020-01-27 04:41] LABS: INR 1.49 (0.82-1.09)
[2020-01-27 04:43] LABS: Hematocrit 22 % (42-52); Hemoglobin 7.5 g/dL (14.0-18.0); Mean Corpuscular HGB Conc 33 g/dL (31-36); Mean Corpuscular Hemoglobin 28 pg (27-31); Mean Corpuscular Volume 85 fL (80-94); Red Blood Count 2.64 10^6 /uL (4.18-5.48); Red Cell Distribution Width 18 % (10-15)
[2020-01-27 04:55] LABS: BUN/Creatinine Ratio 18.8 (8-20); Calcium 7.8 mg/dL (8.6-10.3); EGFR African American 30.6 (>60); EGFR Non-African American 25.3 (>60); Magnesium 1.4 mg/dL (1.9-2.7); Potassium 3.8 mmol/L (3.5-5.0)
[2020-01-27] MEDS ORDERED: Magnesium Sulfate 2 GM IV* 2 G/50 ML BAG IVPB ONE (05:13)
[2020-01-27 05:17] LABS: ABS Basophils 0.1 10^3/ul (0-0.2); ABS Eosinophils 0.5 10^3/ul (0-0.6); ABS Lymphocytes 1.6 10^3/ul (1.0-4.8); ABS Monocytes 1.3 10^3/ul (0-0.8); ABS Neutrophils 5.5 10^3/ul (1.5-7.7); Eosinophil % 5.4 %; Lymphocyte % 17.9 %; Mean Platelet Volume 7.9 fL (7.4-10.4); Nucleated Red Blood Cells % 0.1; Platelet Count 72 10^3/uL (150-450)
[2020-01-27 05:18] LABS: Polychromasia 1+
[2020-01-27 05:24] LABS: Acanthocytes 2+; Burr Cells 1+
[2020-01-27] MEDS: Levothyroxine INJ* 100 MCG/5 ML VIAL IV SCH (05:52)
[2020-01-27] MEDS: Sodium Bicarbonate (ANTACID)* 650 MG TAB PO SCH (07:59)
[2020-01-27] MEDS: Pantoprazole TAB * 40 MG TAB PO SCH (08:43)
[2020-01-27] MEDS: Carvedilol TAB* 6.25 MG PO SCH (08:43)
[2020-01-27] MEDS: Atorvastatin* 80 MG TAB PO SCH (08:44)
[2020-01-27] MEDS: Torsemide TAB* 20 MG PO SCH (08:44)
[2020-01-27] MEDS: Insulin LISPRO* 1 UNITS UNIT SUBCUT SCH ×2 (08:51→21:38)
--- NOTE | 2020-01-27 12:23 | PN ---
Date of Service: 01/27/20 Critical Care Services: Patient initially admitted on 01/22/20 after experiencing generalized weakness x 2 days. He was found to have a hgb of 4 and INR >8. His coumadin was held x 4 days and restarted yesterday. He takes this for persistent LV thrombus and history of LLE DVT. Patient was on the floor and supposed to be discharged on 10/05. However, around 0345, he was found to be unresponsive in his room. LKW 0230. Code burton called. CTH done and no acute changes, unable to obtain CTA d/t poor kidney function, and unable to obtain MRI d/t ICD. This AM, he remains unresponsive with poor neuro exam. Vital Signs: Temp Pulse Resp BP SpO2 FiO2 97.2 F 71 17 96/49 92 01/27/20 08:00 01/27/20 11:00 01/27/20 11:00 01/27/20 11:00 01/27/20 11:00 Physical Exam: Gen: Laying in bed, unresponsive HEENT: Normocephalic, atraumatic, anicteric sclera, dry mucous membranes, neck is supple Lungs: Clear to auscultation, diminished in the bases, no rhonci, rales, or wheezes Cardiac: Distant heart sounds, s1s2, no obvious murmurs Abdomen: soft, nondistended, nontender, BS hypoactive Extremities: Pulses +1, BLE nonpitting edema. Skin is dry and warm Neuro: Patient unresponsive. Does not open eyes, does not follow commands, pupils 4mm nonreactive bilaterally, corneal reflex intact, negative dolls eyes, appears to be protecting airway. No movement any extremity but does withdraw RUE very intermittently to painful stimuli. Fluid Balance (Past 24 Hours): I= O= Net Intake & Output 01/25/20 01/26/20 01/27/20 01/28/20 06:59 06:59 06:59 06:59 Intake Total 1543 1740 0 Output Total 400 1000 550 Balance 1143 740 -550 Weight 186 lb 9.6 oz 183 lb 3.2 oz 168 lb 11.2 oz Intake: IV Fluids 372 300 NS (0.9%) 372 300 IVPB 176 Potassium 176 Medicated IV 275 300 Protonix 275 300 Oral 720 1140 0 Output: Urine 200 Rodrigues 400 1000 350 Labs: Laboratory Results - last 24 hr 01/26/20 01/27/20 01/27/20 20:35 03:38 04:20 WBC 9.0 RBC 2.64 L Hgb 7.5 L Hct 22 L MCV 85 MCH 28 MCHC 33 RDW 18 H Plt Count 72 L MPV 7.9 Neut % (Auto) 61.0 Lymph % (Auto) 17.9 [place] % (Auto) 14.6 Eos % (Auto) 5.4 Baso % (Auto) 1.1 Absolute Neuts (auto) 5.5 Absolute Lymphs (auto) 1.6 Absolute Monos (auto) 1.3 H Absolute Eos (auto) 0.5 Absolute Basos (auto) 0.1 Absolute Nucleated RBC 0.0 Nucleated RBC % 0.1 Polychromasia 1+ Anisocytosis 2+ [place] Cells 1+ Acanthocytes (Spur) 2+ INR (Anticoag Therapy) Sodium Potassium Chloride Carbon Dioxide Anion Gap BUN Creatinine Est GFR ( Amer) Est GFR (Non-Af Amer) BUN/Creatinine Ratio Glucose POC Glucose (mg/dL) 180 H 140 H Calcium Magnesium Ammonia 01/27/20 01/27/20 01/27/20 04:20 04:20 04:20 WBC RBC Hgb Hct MCV MCH MCHC RDW Plt Count MPV Neut % (Auto) Lymph % (Auto) [place] % (Auto) Eos % (Auto) Baso % (Auto) Absolute Neuts (auto) Absolute Lymphs (auto) Absolute Monos (auto) Absolute Eos (auto) Absolute Basos (auto) Absolute Nucleated RBC Nucleated RBC % Polychromasia Anisocytosis [place] Cells Acanthocytes (Spur) INR (Anticoag Therapy) 1.49 H Sodium 139 Potassium 3.8 Chloride 114 H Carbon Dioxide 17 L Anion Gap 8 BUN 46 H Creatinine 2.45 H Est GFR ( Amer) 30.6 Est GFR (Non-Af Amer) 25.3 BUN/Creatinine Ratio 18.8 Glucose 124 H POC Glucose (mg/dL) Calcium 7.8 L Magnesium 1.4 L Ammonia 40 01/27/20 08:47 WBC RBC Hgb Hct MCV MCH MCHC RDW Plt Count MPV Neut % (Auto) Lymph % (Auto) [place] % (Auto) Eos % (Auto) Baso % (Auto) Absolute Neuts (auto) Absolute Lymphs (auto) Absolute Monos (auto) Absolute Eos (auto) Absolute Basos (auto) Absolute Nucleated RBC Nucleated RBC % Polychromasia Anisocytosis [place] Cells Acanthocytes (Spur) INR (Anticoag Therapy) Sodium Potassium Chloride Carbon Dioxide Anion Gap BUN Creatinine Est GFR ( Amer) Est GFR (Non-Af Amer) BUN/Creatinine Ratio Glucose POC Glucose (mg/dL) 151 H Calcium Magnesium Ammonia Studies: CTH 01/26: No acute changes, redemonstration of posterior right parietal lobe encephalomalacia. Echo 01/22: EF 15-20%, severe global hypokinesis, apex is akinetic. A thrombus cannot be excluded, thrombus vs false tendon. Previous echo on 12/24/19 showed apical thrombus. LLL doppler: negative for DVT CT abd/pelvis 01/21: no acute abnormality, small right pleural effusion Nutrition: NPO while unresponsive Impression: Patient initially admitted on 01/22/20 after experiencing generalized weakness x 2 days. He was found to have a hgb of 4 and INR >8. His coumadin was held x 4 days and restarted yesterday. He takes this for persistent LV thrombus and history of LLE DVT. Patient was on the floor and supposed to be discharged on 10/05. However, around 0345, he was found to be unresponsive in his room. LKW 0230. Gen burton called. CTH done and no acute changes, unable to obtain CTA d/t poor kidney function, and unable to obtain MRI d/t ICD. This AM, he remains unresponsive with poor neuro exam. 1. Unresponsive 2. CKD 3. Delirium 4. GI bleed 5. DM 6. Hypothyroidism 7. LV thrombus 8. Chronic RMCA infarct (x2 in 2012) 9. Congestive heart failure 10. Hx of LLE DVT. Plan: NEURO:Unresponsive. Change in mental status at 035 on 01/26. Gen burton called. No intervention could be done. - Neurology on board. Will get rpt CTH in AM to r/o acute infarct. Was off coumadin for 4 days in beginning of admission. - Will obtain EEG - Unable to get CTA d/t poor kidney function, did not get TPA since he was on coumadin, and MRI brain cannot be complete because of his ICD - Appears to have been getting delirious throughout his hospital stay. Question of underlying dementia as well - Has chronic right MCA stroke. According to his , he had an ischemic stroke in 10/2012 and 02/2013. CVS: - Has history of chronic LV thrombus to which he was taking coumadin for. Most recent echo on 01/22 could not exclude thrombus. Thrombus vs false tendon. - Anticoagulation will be held until size of likely stroke is determined. - HR is controlled - BP is consistently in the 80's. Has not had any intake in at least 12hrs, will start gentle hydration. - Known EF 15-20% PULMONARY: - Appears to be protecting his airway at this time GI: - Came in with hgb 4 and INR >8. INR was reversed and received at least 4UPRBC. H/H improved. Stool occult was positive and GI on board. - He was transitioned to PPI BID PO but unable to take PO. Will transition back to IV. RENAL: - Has CKD. Function appears stable. Has not made urine since rodrigues was removed, bladder scan and insert rodrigues - Fluid challenge for UOP. 250cc bolus - Monitor BMP ENDO: - DM. Monitor BGs and replace with insulin sliding scale if needed - Goal BG<200 - Continue IV synthroid for hypothryoidism - Replace electrolytes to keep K>4, mag>2 HEME: - SCDs for DVT prophylaxis at this time. Will reassess anticoagulation once CTH is complete. - H/H has recovered and patient has not required RBC since 01/23. ID: - Afebrile, WBC WNL. Continue to monitor MSK: Has some mild BLE nonpitting edema. Will hold torsemide at this time considering hypovolemia and BPs in 80's. Likely needs gentle hydration at this time Wounds: none DVT prophylaxis: SCDs GI prophylaxis: PPI Central line: Right subclavian Disposition: Patient does not require critical care. However, considering his unresponsiveness, he may benefit from 1 more night in ICU. CODE STATUS: Full code. Spoke with his at length this AM. We discussed DNR /DNI, DNR/trial intubation but at this time, she would like to keep him full code and think about it more. Critical Care Time:
--- NOTE | 2020-01-27 14:30 | CONS ---
NEUROLOGY CONSULTATION: DATE OF CONSULT: 01/27/20 LOCATION: He is in ICU bed 9. CHIEF COMPLAINT: Unresponsiveness. HISTORY OF PRESENT ILLNESS: Lele Fernandez is an 84-year-old man who was admitted on 01/22/20 with s evere anemia and a gastrointestinal bleed. His initial hemoglobin was 4 and he was transfused. He w as alert and interactive through most of the hospital stay according to progress notes. At times, he would refuse therapies. Yesterday morning, he was described as alert and oriented. 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 It is apparently abrupt, although it is not c lear to me in terms of the tempo. When Dr. Morris saw him at about 4 in the morning, he was unrespon sive and would respond only to pain. That has been his condition since. He had a CT scan of the bra in early this morning, which revealed his old right middle cerebral artery infarction, but no new abn ormalities. I reviewed the images and I generally agree, although there may be some decrease in estrada -white matter differentiation in the posterior left hemisphere as well. I was asked to see him. His past medical history is notable for right middle cerebral artery stroke leaving him with a left oralia paresis in 2012. I [address] Nadeen Quiles's consultation from 10/26/12 when he presented with an acute stroke. He had fluctuating symptoms, but ended up with a left hemiparesis. He has had ischemi c cardiomyopathy for many years. He has a left ventricular thrombus and was on anticoagulation when he presented to this hospitalization, which had to be reversed with vitamin K. He has therefore been off his anticoagulation since admission on 01/22/20. He had an echocardiogram on 01/23/20 notable f or severely reduced left ventricular function with ejection fraction of 15% to 20%. There is severe global hypokinesis. Interpretation also include that it could not exclude a thrombus in the ventricl e. PAST MEDICAL HISTORY: Notable for: 1. Hypothyroidism. 2. Chronic kidney disease. 3. Diabetes. 4. Deep vein thrombosis. 5. History of congestive heart failure. 6. Coronary artery disease with stenting. 7. Defibrillator placement. 8. Anterior compartment syndrome requiring fasciotomy in 2013. MEDICATIONS: Medications currently consist of: 1. Coreg 3.125 mg p.o. b.i.d. 2. Lipitor 80 mg p.o. daily. 3. Sliding scale insulin. 4. Levothyroxine 25 mcg IV daily. 5. Protonix 40 mg p.o. b.i.d. 6. Torsemide 40 mg p.o. daily. REVIEW OF SYSTEMS: Review of systems currently is not possible as the patient is unresponsive. PHYSICAL EXAM: General: On physical examination, he appears well hydrated. Vital Signs: Blood pre ssure is running between 80 to 90 systolic/40 to 50 diastolic. Heart rates in the 70s on the monitor. Respiratory rate is 21. Oxygen saturation is 95% on nasal cannula oxygen. Pupils are about 4 mm and do not react to light. I cannot elicit any eye movements with vestibulo-oc ular reflexes. Corneal reflexes are not present, but he does have nasal tickle response in the right . Facial grimace is reduced in the left side of the face relative to the right. I can get a few gru nts out of him with sternal rub, but no other vocalizations. He is breathing independently. He has a spastic left arm and leg. He has some restless movements of the right arm and right leg. H e does move the right arm with noxious stimulus to the right nail bed or with sternal rub. He has bi lateral Babinski signs. He does not respond to deep nail bed pressure on the left. LABORATORY DATA: Includes a CBC from this morning, notable for hemoglobin of 7.5, which is stable co mpared to the last few days. White blood cell count is normal at 9.0 and platelet count is low at 72 ,000, that is a drop from admission when his platelet count was 162,000. Chemistry profile this morn ing is notable for carbon dioxide of 17, BUN of 46 and creatinine of 2.45, which is similar to histor ical values in the electronic medical record. His glucose this morning is 124, calcium is mildly low at 7.8 and ionized calcium yesterday was mildly low at 1.15. Magnesium is low today at 1.4, it was 1 .9 when he was admitted on 01/22/20. His troponin has been elevated with a last value on the 0 being 1.23. TSH on 01/22/20 was unremarkable at 1.55. IMPRESSION AND PLAN: Impression is that of a coma with retained breathing. His pupils do not react, but he seems to have adequate respiratory drive. I suspect he has had an ischemic stroke superimpos ed on his old ischemic stroke causing higher degree of unresponsiveness than might otherwise be expec odette in a patient without a prior cerebrovascular disease. His initial CT scan of the brain shows his old stroke, but not clearly any new one. Recommend repeating it tomorrow. We will also put him for an EEG tomorrow, but I do not see anything currently that suggests that he is having seizures. An M RI was ordered, but could not be done because of his defibrillator. I will continue to follow him al aashish with you. [id number]/[facility] #: [id number]
[2020-01-27] MEDS ORDERED: Lactated Ringers 1000 ML Bag* 1,000 ML IV SCH (15:00)
--- NOTE | 2020-01-27 18:21 | EEG ---
ELECTROENCEPHALOGRAM REPORT: DATE OF STUDY: 01/27/20 LOCATION: He is an inpatient in the intensive care unit. REFERRING PROVIDER: Dr. Thomas. CLINICAL PROBLEM: The patient presented with gastrointestinal bleeding, severe anemia. The patient subsequently became unresponsive this morning. MEDICATIONS: Include: 1. Protonix. 2. Levothyroxine. 3. Insulin. 4. Atorvastatin. 5. Coreg. 6. Torsemide. There is a history of a right hemispheric stroke in the past. REPORT: This 19-channel EEG is remarkable for background rhythms consisting of diffuse slowing. Fro m the left hemisphere, faster rhythms are noted achieving the frequency of about 8 to 9 cycles per se cond at times but not any anterior to posterior gradient. Beta rhythms and alpha rhythms otherwise p redominantly particularly are from the right hemisphere. Beta activity is seen parasagittally and fr ontally. The patient is unresponsive. Activation procedure was not attempted. There are no ictal e vents. There were no epileptiform discharges during this recording. CLINICAL IMPRESSION: Abnormal EEG due to generalized slowing and disorganization of background rhyth ms, more prominently from the right hemisphere than the left, but bilateral. This tracing was compat ible with diffuse cerebral dysfunction, more prominently from the right hemisphere than the left. Th ere are no epileptiform features to this recording. [id number]/[id number] #: [id number]
[2020-01-27] MEDS: Pantoprazole IV* 40 MG IV SCH (21:38)
[2020-01-28] MEDS: Sodium Bicarbonate (ANTACID)* 650 MG TAB PO SCH (03:22)
[2020-01-28 04:52] LABS: Hematocrit 24 % (42-52); Hemoglobin 7.9 g/dL (14.0-18.0); Mean Corpuscular HGB Conc 33 g/dL (31-36); Mean Corpuscular Hemoglobin 28 pg (27-31); Mean Corpuscular Volume 85 fL (80-94); Mean Platelet Volume 8.1 fL (7.4-10.4); Platelet Count 74 10^3/uL (150-450); Red Blood Count 2.82 10^6 /uL (4.18-5.48); Red Cell Distribution Width 18 % (10-15); White Blood Count 11.2 10^3/uL (3.5-10.8)
[2020-01-28 05:09] LABS: BUN/Creatinine Ratio 19.2 (8-20); Calcium 7.9 mg/dL (8.6-10.3); EGFR Non-African American 27.3 (>60)
--- NOTE | 2020-01-28 05:40 | PN ---
Hospitalist Progress Note Date of Service: 01/28/20 HOSPITALIST ADDENDUM Call by Dr Ro (radiology) - CT brain reveals right occipital lobe new infarct.
[2020-01-28] MEDS: Levothyroxine INJ* 100 MCG/5 ML VIAL IV SCH (06:05)
[2020-01-28] MEDS: Insulin LISPRO* 1 UNITS UNIT SUBCUT SCH (08:48)
[2020-01-28] MEDS: Pantoprazole IV* 40 MG IV SCH (08:48)
--- NOTE | 2020-01-28 10:04 | PN ---
Subjective Date of Service: 01/28/20 Length of Stay: 6 Days Neurology is following Mr. Fernandez for the evaluation and management of stroke. Review of Systems: Denied CP, SOB, or palpitations. Objective Active Medications: Dextrose (D50w Syringe 50 Ml*) 12.5 gm IV PUSH .FOR FS < 60 - SS PRN PRN Reason: FS < 60 Lactated Ringer's (Lactated Ringers 1000 Ml Bag*) 1,000 mls @ 50 mls/hr IV PER RATE [facility] Last Admin: 01/27/20 15:27 Dose: 50 mls/hr Insulin Human Lispro (Humalog*) 0 units SUBCUT BID [facility]; Protocol Last Admin: 01/28/20 08:48 Dose: Not Given Levothyroxine Sodium (Synthroid Inj*) 25 mcg IV 0600 [facility] Last Admin: 01/28/20 06:05 Dose: 25 mcg Pantoprazole Sodium (Protonix Iv*) 40 mg IV BID [facility] Last Admin: 01/28/20 08:48 Dose: 40 mg Vital Signs 01/27/20 01/27/20 01/27/20 10:00 11:00 12:00 Temperature 96.9 F Pulse Rate 71 71 Respiratory 24 17 19 Rate Blood Pressure 96/49 80/49 (mmHg) O2 Sat by Pulse 92 94 Oximetry 01/27/20 01/27/20 01/27/20 12:04 13:00 14:00 Temperature Pulse Rate 71 69 69 Respiratory 21 18 21 Rate Blood Pressure 89/43 86/47 95/42 (mmHg) O2 Sat by Pulse 95 97 95 Oximetry 01/27/20 01/27/20 01/27/20 15:00 16:00 17:00 Temperature 95.2 F 95.0 F 94.6 F Pulse Rate 66 69 65 Respiratory 23 18 20 Rate Blood Pressure 104/43 (mmHg) O2 Sat by Pulse 96 94 97 Oximetry 01/27/20 01/27/20 01/27/20 18:00 19:00 19:44 Temperature 94.5 F 94.5 F 94.3 F Pulse Rate 68 66 60 Respiratory 17 21 19 Rate Blood Pressure 103/57 (mmHg) O2 Sat by Pulse 95 96 92 Oximetry 01/27/20 01/27/20 01/27/20 20:00 21:00 21:49 Temperature 94.3 F 94.3 F 96.7 F Pulse Rate 61 66 Respiratory 20 21 Rate Blood Pressure 102/55 108/62 (mmHg) O2 Sat by Pulse 91 94 Oximetry 01/27/20 01/27/20 01/28/20 22:00 23:00 00:00 Temperature 94.3 F 94.3 F 94.3 F Pulse Rate 71 65 69 Respiratory 18 20 20 Rate Blood Pressure 118/64 104/50 99/53 (mmHg) O2 Sat by Pulse 96 91 94 Oximetry 01/28/20 01/28/20 01/28/20 00:15 00:40 01:00 Temperature 94.3 F 96.6 F 94.5 F Pulse Rate 71 72 Respiratory 24 25 Rate Blood Pressure 105/59 (mmHg) O2 Sat by Pulse 96 95 Oximetry 01/28/20 01/28/20 01/28/20 02:00 03:00 03:54 Temperature 94.8 F 95.0 F Pulse Rate 71 76 Respiratory 23 32 30 Rate Blood Pressure 98/55 102/51 (mmHg) O2 Sat by Pulse 95 96 Oximetry 01/28/20 01/28/20 01/28/20 04:00 05:11 05:13 Temperature 95.2 F 95.4 F Pulse Rate 78 68 65 Respiratory 24 38 21 Rate Blood Pressure 99/49 98/52 (mmHg) O2 Sat by Pulse 93 95 94 Oximetry 01/28/20 01/28/20 01/28/20 06:00 07:00 07:11 Temperature 95.2 F 95.2 F 95.2 F Pulse Rate 69 67 67 Respiratory 29 25 29 Rate Blood Pressure 95/56 105/49 105/49 (mmHg) O2 Sat by Pulse 91 95 94 Oximetry 01/28/20 08:00 Temperature 95.5 F Pulse Rate 65 Respiratory 30 Rate Blood Pressure 102/51 (mmHg) O2 Sat by Pulse 94 Oximetry Intake and Output Last 24 Hours 01/26/20 01/27/20 01/28/20 01/29/20 06:59 06:59 06:59 06:59 Intake Total 1740 0 68.5 Output Total 1000 550 615 Balance 740 -550 -546.5 Weight 183 lb 3.2 oz 168 lb 11.2 oz Intake: IV Fluids 300 8.5 NS (0.9%) 300 8.5 IVPB 60 NS (0.9%) 60 Medicated IV 300 Protonix 300 Oral 1140 0 0 Output: Urine 200 [place] 1000 350 315 Residual 300 Soto 16 Fr Temperature 300 Probe Oxygen Devices in Use Now: OxyMask Neurology Exam: General: Well nourished, well developed, and in no acute distress HEENT: Normocephelic/atraumatic, sclera anicteric, mucous membranes moist Neck: Supple Chest: Clear to auscultation bilaterally Cardiovascular: Regular rate and rhythm without murmurs, rubs, gallops Abdomen: Soft, non-tender/non-distended Extremities: No clubbing, cyanosis, or edema Neurological Findings: Awake, alert, and oriented to person, place, and time. Speech: fluent without dysarthria, repetition intact Cranial Nerve: PERRL, EOM intact, VFF, no nystagmus, face symmetric bilaterally , facial sensation intact, hearing intact to finger rub bilaterally, palate elevates symmetrically, tongue midline, SCM and Trapezius s/s. Motor: s/s throughout, proximal and distal extremities x4 tone/bulk normal Sensation: intact to LT/PP bilaterally upper and lower extremities Deep Tendon Reflex: 2+ symmetric in the upper/lower extremities, Babinski - down going Finger to nose, rapid alternating movements intact without tremor, no dysdiadochokinesia Gait: intact with good arm swing and stride Result Diagrams: 01/28/20 04:40 01/28/20 04:40 Microbiology and Other Data: Microbiology 01/22/20 14:52 Stool Occult Blood ([facility]) - Final Stool EKG Data: EKG: sinus rhythm, HR 93, incomplete LBBB, V1-V3 ST elevation compared with last EKG in 2019.
--- NOTE | 2020-01-28 10:50 | PN ---
Date of Service: 01/28/20 Critical Care Services: Patient O2 requirements have started to increase. CTH showed new right ENSEMBLE MEMBER territory infarct and left hemispheric watershed infarcts. Lung sounds are now coarse. Vital Signs: Temp Pulse Resp BP SpO2 FiO2 95.5 F 65 30 102/51 94 01/28/20 08:00 01/28/20 08:00 01/28/20 08:00 01/28/20 08:00 01/28/20 08:00 Physical Exam: Gen: Laying in bed, unresponsive, NAD HEENT: Normocephalic, atraumatic, anicteric sclera, dry mucous membranes, neck is supple Lungs: Coarse lung sounds throughout, but may be primarily upper airway noises. No obvious wheezing. Cardiac: Distant heart sounds, s1s2, no obvious murmurs Abdomen: soft, nondistended, nontender, BS hypoactive Extremities: Pulses +1, BLE nonpitting edema. Skin is dry and warm Neuro: Patient unresponsive. Does not open eyes, does not follow commands, pupils 4mm nonreactive bilaterally, corneal reflex intact, negative dolls eyes, appears to be protecting airway. Upon persistent noxious stimuli, he does have purposeful movement of RUE, minimal movement of all other extremities. Fluid Balance (Past 24 Hours): I= O= Net Intake & Output 01/26/20 01/27/20 01/28/20 01/29/20 06:59 06:59 06:59 06:59 Intake Total 1740 0 68.5 Output Total 1000 550 615 Balance 740 -550 -546.5 Weight 183 lb 3.2 oz 168 lb 11.2 oz Intake: IV Fluids 300 8.5 NS (0.9%) 300 8.5 IVPB 60 NS (0.9%) 60 Medicated IV 300 Protonix 300 Oral 1140 0 0 Output: Urine 200 Soto 1000 350 315 Residual 300 Soto 16 Fr Temperature 300 Probe Labs: Laboratory Results - last 24 hr 01/27/20 01/28/20 01/28/20 21:15 04:40 04:40 WBC 11.2 H RBC 2.82 L Hgb 7.9 L Hct 24 L MCV 85 MCH 28 MCHC 33 RDW 18 H Plt Count 74 L MPV 8.1 Sodium 141 Potassium 4.0 Chloride 116 H Carbon Dioxide 17 L Anion Gap 8 BUN 44 H Creatinine 2.29 H Est GFR ( Amer) 33.0 Est GFR (Non-Af Amer) 27.3 BUN/Creatinine Ratio 19.2 Glucose 128 H POC Glucose (mg/dL) 162 H Calcium 7.9 L 01/28/20 08:47 WBC RBC Hgb Hct MCV MCH MCHC RDW Plt Count MPV Sodium Potassium Chloride Carbon Dioxide Anion Gap BUN Creatinine Est GFR ( Amer) Est GFR (Non-Af Amer) BUN/Creatinine Ratio Glucose POC Glucose (mg/dL) 144 H Calcium Studies: CTH 01/27: Poor study but radiology does note new right occipital lobe infarct CTH 01/26: No acute changes, redemonstration of posterior right parietal lobe encephalomalacia. Echo 01/22: EF 15-20%, severe global hypokinesis, apex is akinetic. A thrombus cannot be excluded, thrombus vs false tendon. Previous echo on 12/24/19 showed apical thrombus. LLL doppler: negative for DVT CT abd/pelvis 01/21: no acute abnormality, small right pleural effusion Nutrition: NPO Impression: Patient initially admitted on 01/22/20 after experiencing generalized weakness x 2 days. He was found to have a hgb of 4 and INR >8. His coumadin was held x 4 days and restarted yesterday. He takes this for persistent LV thrombus and history of LLE DVT. Patient was on the floor and supposed to be discharged on 10/05. However, around 0345, he was found to be unresponsive in his room. LKW 0230. Code burton called. CTH done and no acute changes, unable to obtain CTA d/t poor kidney function, and unable to obtain MRI d/t ICD. He remains unresponsive with poor neuro exam. 01/27: Rpt CTH complete and discussed with neurology. Appears to be a new right ENSEMBLE MEMBER territory infarcts along with watershed infarcts in the left hemisphere. 1. Unresponsive 2. CKD 3. Delirium 4. GI bleed 5. DM 6. Hypothyroidism 7. LV thrombus 8. Chronic RMCA infarct (x2 in 2012) 9. Congestive heart failure 10. Hx of LLE DVT. 11. Acute R ENSEMBLE MEMBER territory infarct and watershed infarcts left hemisphere Plan: NEURO:Unresponsive. Change in mental status at 035 on 01/26. Code burton called. No intervention could be done. - Neurology on board. Rpt CTH read by radiology to have right occpital infarct. After discussing with neurology, seems to have a right ENSEMBLE MEMBER territory infarct as well as left hemispheric watershed infarcts. - EEG negative for seizures - Unable to get CTA d/t poor kidney function, did not get TPA since he was on coumadin, and MRI brain cannot be complete because of his ICD - Appears to have been getting delirious throughout his hospital stay. Question of underlying dementia as well - Has chronic right MCA stroke. According to his , he had an ischemic stroke in 10/2012 and 02/2013. CVS: - Has history of chronic LV thrombus to which he was taking coumadin for. Most recent echo on 01/22 could not exclude thrombus. Thrombus vs false tendon. - Anticoagulation will be held until goals of care are decided on. Likely will need to be held for another couple days either way - HR is controlled - BP on the low end of normal. Respiratory status is worsening so discontinued IVF - Known EF 15-20% PULMONARY: - Appears to be protecting his airway at this time. However, his O2 requirements continue to trend up. He has difficulty managing secretions - Has been desatting into the 80's with 7L oxymask on. He needed to be NT suctioned for large amounts of sputum. O2 % improved initially but has been needing suctioning every 15mins. Will continue to increase O2 and advised his she should come in to see him GI: - Came in with hgb 4 and INR >8. INR was reversed and received at least 4UPRBC. H/H improved. Stool occult was positive and GI on board. - Continue PPI BID IV. RENAL: - Has CKD. Function appears stable. Inserted foleyon 01/27/20 for urinary retention. - Started IVF yesterday since hypovolemic and not making enough urine. This improved. However, respiratory status worsened so IVF were discontinued. - Monitor BMP ENDO: - DM. Monitor BGs and replace with insulin sliding scale if needed - Goal BG<200 - Continue IV synthroid for hypothryoidism - Replace electrolytes to keep K>4, mag>2 HEME: - SCDs for DVT prophylaxis at this time. Continue to hold anticoagulation - H/H has recovered and patient has not required RBC since 01/23. ID: - Afebrile, WBC WNL. Does seem to be hypothermic however. Continue to monitor MSK: Has some mild BLE nonpitting edema. Wounds: none DVT prophylaxis: SCDs GI prophylaxis: PPI Central line: Right subclavian Disposition: Patient requires ICU d/t tenuous respiratory status. CODE STATUS: Patient's respiratory status continues to worsen and he is losing his ability to protect his airway. Called his and updated her on the situation. Under no circumstances does she want him on a ventilator or with a feeding tube. She agreed to make him a DNR/DNI and she was advised to come to the hospital to see her . There is a high likelihood that the patient will pass in the very near future. Critical Care Time: 30 mins
--- NOTE | 2020-01-28 12:53 | PN ---
NEUROLOGY PROGRESS NOTE: DATE OF SERVICE: 01/28/20 PRIMARY PROVIDER: Meredith Walters NP. CHIEF COMPLAINT: The patient is minimally responsive. Neurology is following for the evaluation of acute to subacute stroke. SUBJECTIVE: The patient is resting in bed in ICU. He is moaning. He is unable to follow any command. His body is turned towards the left. REVIEW OF SYSTEMS: Unable to be obtained due to the patient's minimally responsive state. CURRENT MEDICATIONS: 1. Dextrose insulin. 2. Human lispro. 3. Lactated Ringer's 1000 mL bag. 4. Levothyroxine (Synthroid) 25 mcg IV. 5. Pantoprazole 40 mg IV. PHYSICAL EXAMINATION: Vitals: Temperature of 95.5, pulse of 71, respiratory rate of 27, blood pressure of 102/51. General: Critically ill-appearing, frail , elderly man who does not appear to be in any acute distress. He has a Soto catheter. He has a nonrebreather mask on with 8 L of oxygen flowing. Head: Atraumatic, normocephalic without obvious abnormality. Neck is supple and symmetric with no carotid bruit. Eyes: Conjunctivae/corneas are clear. Cardiovascular: Regular rate and rhythm. Chest: Diminished breath sounds bilaterally. Skin: No skin lesions or laceration. Psych: Deferred. Extremities: No hammertoes or high arches. Neurological Examination: The patient opens his eyes but does not follow command. He is nearly comatose. He is not intubated. He is not on any sedation. He grimaces and moans to distal noxious stimuli on the right. Pupils are 4 mm symmetrically and minimally reactive. Corneal reflex is intact bilaterally. He grimaced and attempted to reach for my hand to nasal stimulation using his right hand. Oculocephalic reflux is not present. Motor: Flexes elbow to distal noxious stimuli on the right. No movement on the left. No movement on bilateral lower extremities. He does not follow command. He does not localize to sensation. Cerebellar and gait testing were deferred. LABS/IMAGING/OTHER DIAGNOSTIC STUDIES: WBC of 11, hemoglobin of 7.9, hematocrit of 24. Sodium of 141, potassium of 4, chloride of 116, BUN of 44, creatinine of 2.29, glucose of 128. Please note that I reviewed his prior labs. He had elevated alkaline phosphatase of 406 and BUN/creatinine that is elevated at 81 BUN and creatinine of 3.09. His INR on presentation was 8. Hemoglobin was 4, hematocrit was 12. Imaging studies: He had an abdominal/pelvis CT completed on 01/22/20 that showed a small right pleural effusion and no acute abdominal or pelvic abnormality. He also had a CT of the head on 01/27/20 that showed a stable chronic finding of a large encephalomalacia in the posterior right parietal lobe. This has not changed. A repeat CT of the head on 01/28/20 showed a new area of large low attenuation in the right occipital lobe as well as very subtle attenuation in the left frontal lobe consistent with multifocal embolic stroke and superimposed watershed like infarction. There is significant edema in the right occipital lobe. The patient had an EEG completed on 01/27/20 that was read by Dr. Thomas and it was read as "abnormal EEG due to generalized slowing and disorganization of the background rhythm, more prominent from the right hemisphere than the left. This tracing was compatible with cerebral dysfunction, more prominent on the right hemisphere than the left, and a superimposed area of mild encephalopathy. " ASSESSMENT AND RECOMMENDATION: Mr. 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 on 01/22/20 with a chief complaint of difficulty walking. He was found to have severe anemia with a hemoglobin of 4, hematocrit of 12, and INR of 8. He is taking warfarin for a history of left leg deep vein thrombosis and an LV thrombus. Initially, the patient was refusing blood products but eventually agreed to receive transfusion. He was transfused and sent to the ICU for further monitoring. The patient's mental status deteriorated on 01/27/20. He was last known well on 01/26/20 and unclear time but then was apparently unresponsive the following day. This has been a deterioration from his overall cognition and interaction since the hospitalization. Dr. Thomas was consulted. The patient had a repeat CT head that showed new area of a large infarction involving nearly all the right LOOM OVERHAULER vascular distribution. He also appears to have an infarct in the left frontal region, not noticeable on the CT. The cause of the infarction is most likely due to the combination of cerebral hypoperfusion in the setting of severe hypotension, anemia, low ejection fraction as he has an ejection fraction of 15 % on a most recent echo, and most likely thrombus in the setting of being off anticoagulation therapy due to severe symptomatic anemia. The patient's examination is notable for minimally conscious state and dense left hemiplegia. He is barely protecting his airway. He will not be able to tolerate any p.o. intake. He is nonverbal. I suspect the deterioration in his mental status is due to multifocal infarction and global cerebral hypoperfusion. I discussed the case in detail with Ms. Fernandez via telephone today at 9:27 a.m. I provided her with the CT head results. I also shared with her the EEG results, which she requested. Unfortunately, given the patient's pre-morbid conditions and his baseline disability, I informed her that he will have an overall poor meaningful neurological recovery, worse than his prior disabled state. He will most likely at least a PEG tube for feeding and could potentially require to be intubated if his stroke continues to evolve. If the stroke occurred on 01/27/20, it has not peaked as cerebral edema will peak at 72 hours, which would result in worsening mental status and neurological disability. Mrs. Fernandez informed me that the patient would not ever want to be intubated or be dependent on artificial feeding. The patient was refusing blood products earlier on when his hemoglobin was at 3. He had informed Mrs. Fernandez that if his medical condition deteriorates and he would require be dependent on any artificial feeding, to allow him a peaceful and painless . Mrs. Fernandez requested we consult palliative care and proceed with hospice care if he is a candidate. In the meantime, please discuss his code status with Mrs. Fernandez and at least transition him to DNR/DNI in case his heart stops, then we can allow him a natural and peaceful way of passing. Please minimize any hypotonic solutions to prevent any worsening cerebral edema. I would recommend keeping the sodium level to between 140 to 145. Keep his blood pressure in the normotensive range. Unfortunately, the patient would not be a candidate for anticoagulation therapy given his recent severe gastrointestinal bleed. He is at high risk of recurrent strokes. Continue supportive care until the patient is deemed comfort care. I discussed these recommendations with Ruma in ICU. Please contact me for any questions or concerns. [id number]/[facility] #: [id number] UNITED HEALTH SERVICESDiamante
--- NOTE | 2020-01-28 13:18 | PN ---
Progress Note - Progress Note Date of Service: 01/28/20 Note: GI follow up events noted VS 95.5, 102/51, 68 lethargic, not alert Hgb 7.9, stable INR 1.49 BUN 44 anemia--->castrejon deferred at this time given current condition please call with ? Ángel Crabtree MD
--- NOTE | 2020-01-28 13:19 | PN ---
Progress Note - Progress Note Date of Service: 01/28/20 Note: The patient has become hypotensive, and O2 requirement has been increasing. His , Mony, was updated over the phone, and she decided to change code status to DNR/DNI. MOLST form was filled out. When Mony arrived to the hospital, she requested their local father come to the hospital, and he will be here within the hour. The hospital building maintenance custodian has also been involved with the patient and his . I talked with Mony about goals of care and how aggressive the medical treatment should be. She would like to pursue comfort measures only. MOLST was updated.
[2020-01-28] MEDS ORDERED: Morphine 4 MG/ML VIAL (1 ml) 4 MG/ML VIAL IV PRN (14:06)
[2020-01-28] MEDS: Morphine INJ* 4 MG/ML 1 ML SYRINGE (NEW SYRINGE VERSION) IV PRN ×4 (14:19→22:39)
[2020-01-28] MEDS ORDERED: Lorazepam PYXIS KEY PRN (16:23)
[2020-01-28] MEDS: LORazepam INJ* 2 MG/ML 1 ML VIAL IV PUSH PRN (18:32)
[2020-01-29] MEDS: Morphine INJ* 4 MG/ML 1 ML SYRINGE (NEW SYRINGE VERSION) IV PRN ×6 (10:48→18:50)
[2020-01-29] MEDS: Atropine 1% (ORAL/SL)* 15 ML BTL SL PRN ×3 (10:57→16:51)
[2020-01-29] MEDS: LORazepam INJ* 2 MG/ML 1 ML VIAL IV PUSH PRN ×7 (11:59→18:49)
--- NOTE | 2020-01-29 15:17 | PN ---
Subjective Date of Service: 01/29/20 Interval History: Comfortable. Discussed case with at bedside as well Social History: Unchanged from Admission Past Medical History: Unchanged from Admission Objective Active Medications: Atropine Sulfate (Atropine 1% (Oral/Sl)*) 2 drop SL Q2H PRN PRN Reason: Terminal Secretions Last Admin: 01/29/20 14:09 Dose: 2 drp Lorazepam (Ativan Inj*) 1 mg IV PUSH Q1H PRN PRN Reason: Anxiety/Agitation Last Admin: 01/29/20 14:10 Dose: 1 mg Miscellaneous (Ativan Pyxis Brown) 1 ea N/A .PYXIS BROWN PRN PRN Reason: PER PROTOCOL Morphine Sulfate (Morphine Inj (Syringe)*) 4 mg IV Q1H PRN PRN Reason: PAIN - SEVERE Last Admin: 01/29/20 14:10 Dose: 4 mg Vital Signs - 8 hr 01/29/20 01/29/20 01/29/20 10:00 10:30 10:48 Temperature 99.2 F Pulse Rate 96 Respiratory 24 24 26 Rate Blood Pressure 93/28 (mmHg) O2 Sat by Pulse 95 Oximetry 01/29/20 01/29/20 01/29/20 11:59 12:00 13:00 Temperature Pulse Rate Respiratory 24 24 26 Rate Blood Pressure (mmHg) O2 Sat by Pulse Oximetry 01/29/20 14:10 Temperature Pulse Rate Respiratory 26 Rate Blood Pressure (mmHg) O2 Sat by Pulse Oximetry Oxygen Devices in Use Now: Nasal Cannula Neck: NL Appearance and Movements; NL JVP Respiratory: - - rales bilaterally Cardiovascular: RRR Extremities: - - edema Neurological: - - lethargic Result Diagrams: 01/28/20 04:40 01/28/20 04:40 Microbiology and Other Data: Microbiology 01/22/20 14:52 Stool Occult Blood ([facility]) - Final Stool 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, HTN, ischemic cardiomyopathy , EF 20%, chronic systolic CHF, s/p ICD presents with weakness and Hb of 4 - Patient Problems (1) GI bleed Current Visit: Yes Status: Acute Code(s): K92.2 - GASTROINTESTINAL HEMORRHAGE, UNSPECIFIED SNOMED Code(s): 24929329 Comment: Initial Hb og 4 (2) Stroke Current Visit: Yes Status: Acute Code(s): I63.9 - CEREBRAL INFARCTION, UNSPECIFIED SNOMED Code(s): 279074090 (3) Respiratory failure Current Visit: Yes Status: Acute Code(s): J96.90 - RESPIRATORY FAILURE, UNSP , UNSP W HYPOXIA OR HYPERCAPNIA SNOMED Code(s): 667030813 Comment: Transferred out of ICU DNR/DNI Comfort care after GOC discussion Pl refer to Dr Schreiber's note for details Discussed with pt's HCP who is in agreement Continue comfort/supportive care Palliative care consult Status and Disposition: inpatient, pt is not cooperative enough to start PT
[2020-01-30] MEDS: Morphine INJ* 4 MG/ML 1 ML SYRINGE (NEW SYRINGE VERSION) IV PRN ×3 (06:12→18:08)
[2020-01-30] MEDS: Atropine 1% (ORAL/SL)* 15 ML BTL SL PRN ×3 (06:12→18:17)
--- NOTE | 2020-01-30 11:50 | PN ---
Subjective Date of Service: 01/30/20 Interval History: Confortable Social History: Unchanged from Admission Past Medical History: Unchanged from Admission Objective Active Medications: Atropine Sulfate (Atropine 1% (Oral/Sl)*) 2 drop SL Q2H PRN PRN Reason: Terminal Secretions Last Admin: 01/30/20 06:12 Dose: 2 drp Heparin Sodium (Porcine) (Heparin Flush Picc/Ml/Cvc(*)) 1 ml FLUSH 0600,1800 CAMI; Protocol Last Admin: 01/30/20 06:14 Dose: 3 ml Lorazepam (Ativan Inj*) 1 mg IV PUSH Q1H PRN PRN Reason: Anxiety/Agitation Last Admin: 01/29/20 18:49 Dose: 1 mg Miscellaneous (Ativan Pyxis Martinez) 1 ea N/A .PYXIS MARTINEZ PRN PRN Reason: PER PROTOCOL Morphine Sulfate (Morphine Inj (Syringe)*) 4 mg IV Q1H PRN PRN Reason: PAIN - SEVERE Last Admin: 01/30/20 06:12 Dose: 4 mg Vital Signs - 8 hr 01/30/20 01/30/20 01/30/20 06:12 07:57 08:49 Temperature 97.9 F Pulse Rate 102 Respiratory 24 24 20 Rate Blood Pressure 78/38 (mmHg) O2 Sat by Pulse 86 Oximetry Oxygen Devices in Use Now: Nasal Cannula Eyes: No Scleral Icterus Neck: NL Appearance and Movements; NL JVP Respiratory: - - bronchial breath sounds bilateral crackles Cardiovascular: NL Sounds; No Murmurs; No JVD Abdominal: NL Sounds; No Tenderness; No Distention Extremities: No Edema Neurological: - - lethargic Result Diagrams: 01/28/20 04:40 01/28/20 04:40 Microbiology and Other Data: Microbiology 01/22/20 14:52 Stool Occult Blood ([facility]OLA) - Final Stool 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, HTN, ischemic cardiomyopathy , EF 20%, chronic systolic CHF, s/p ICD presents with weakness and Hb of 4 - Patient Problems (1) GI bleed Current Visit: Yes Status: Acute Code(s): K92.2 - GASTROINTESTINAL HEMORRHAGE, UNSPECIFIED SNOMED Code(s): 98345166 Comment: Initial Hb of 4 (2) Stroke Current Visit: Yes Status: Acute Code(s): I63.9 - CEREBRAL INFARCTION, UNSPECIFIED SNOMED Code(s): 194448990 (3) Respiratory failure Current Visit: Yes Status: Acute Code(s): J96.90 - RESPIRATORY FAILURE, UNSP , UNSP W HYPOXIA OR HYPERCAPNIA SNOMED Code(s): 853248062 Comment: Transferred out of ICU DNR/DNI Comfort care after GOC discussion Pl refer to Dr Schreiber's note for details Discussed with pt's HCP who is in agreement Continue comfort/supportive care Palliative care consult Status and Disposition: Discussed with who is HCP about turning off ICD.She is in agreement and wants him to be comfortable. Appreciate Dr Torrez's assistance in turning off ICD. Appreciate Dr Mcdaniel input. Family meeting in progress.
--- NOTE | 2020-01-30 12:14 | CONSULT ---
Palliative / Hospice Consult Ordering Provider: Sahara Rael - PCPFrandy Referal Reason: Support/no bowel meds/no bowel meds/MS - Subjective Code Status: DNR Advance Directives Location: No Advance Directives MOLST Part A Completed: Yes - on chart MOLST Part E Completed:: Yes - chart - History or Present Illness History or Present Illness: 84yo male with end stage heart disease and CVAs presents with generalized weakness. PMH is significant for CVA x2 with residual L hemiparesis, CHF 20-25% , CAD s/p OR, cardiac arrest, 3 stents and ICD, CKD, hypothyroid, GERD, HLD, DM2 LL DVT, hard of hearing, mild dementia and compartment syndrome. 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 Studies CXR-neg, abd/pel CT-sm R pleural effusion, CXR-COPD, mild R basilar atelectasis vs pneumonia, mild pulm congestion and interstial edema, Ekg-nsr probable ant infarct, doppler no DVT, Echo-15-20% severe global hypokinesis, old thrombus, brain CT-no acute finding, Ekg-diffuse cerebral dysfunction R>L hemisphere, CXR-bibasilar R>L airspace disease, Brain Ct#2 R occipital lobe acute/subacute infarct, H/H 7.9/24, BUN/Cr 44/2.29, egfr 27.3, alb 3.3 BNP 622, troponin 1.61 and INR 1.49. Pt admitted to ICU 01/21 with GI bleed transferred to floor next day continued to improve was to be discharged 01/26 but suffered a new CVA and is on comfort care now. Pt with 2 prior ER visits. All history is from and medical record. Lab Values: Laboratory Last Values WBC 11.2 10^3/uL (3.5-10.8) H 01/28/20 04:40 RBC 2.82 10^6 /uL (4.18-5.48) L 01/28/20 04:40 Hgb 7.9 g/dL (14.0-18.0) L 01/28/20 04:40 Hct 24 % (42-52) L 01/28/20 04:40 MCV 85 fL (80-94) 01/28/20 04:40 MCH 28 pg (27-31) 01/28/20 04:40 MCHC 33 g/dL (31-36) 01/28/20 04:40 RDW 18 % (10-15) H 01/28/20 04:40 Plt Count 74 10^3/uL (150-450) L 01/28/20 04:40 MPV 8.1 fL (7.4-10.4) 01/28/20 04:40 Neut % (Auto) 61.0 % 01/27/20 04:20 Lymph % (Auto) 17.9 % 01/27/20 04:20 [place] % (Auto) 14.6 % 01/27/20 04:20 Eos % (Auto) 5.4 % 01/27/20 04:20 Baso % (Auto) 1.1 % 01/27/20 04:20 Absolute Neuts (auto) 5.5 10^3/ul (1.5-7.7) 01/27/20 04:20 Absolute Lymphs (auto) 1.6 10^3/ul (1.0-4.8) 01/27/20 04:20 Absolute Monos (auto) 1.3 10^3/ul (0-0.8) H 01/27/20 04:20 Absolute Eos (auto) 0.5 10^3/ul (0-0.6) 01/27/20 04:20 Absolute Basos (auto) 0.1 10^3/ul (0-0.2) 01/27/20 04:20 Absolute Nucleated RBC 0.0 10^3/ul 01/27/20 04:20 Nucleated RBC % 0.1 01/27/20 04:20 Polychromasia 1+ 01/27/20 04:20 Hypochromasia 3+ 01/22/20 14:27 Anisocytosis 2+ 01/27/20 04:20 Roark Cells 1+ 01/27/20 04:20 Elliptocytes 1+ 01/22/20 14:27 Acanthocytes (Spur) 2+ 01/27/20 04:20 Hem Pathologist Commnt 01/27/20 04:20 INR (Anticoag Therapy) 1.49 (0.82-1.09) H 01/27/20 04:20 APTT 41.2 seconds (26.0-38.0) H 01/22/20 14:28 Sodium 141 mmol/L (135-145) 01/28/20 04:40 Potassium 4.0 mmol/L (3.5-5.0) 01/28/20 04:40 Chloride 116 mmol/L (101-111) H 01/28/20 04:40 Carbon Dioxide 17 mmol/L (22-32) L 01/28/20 04:40 Anion Gap 8 mmol/L (2-11) 01/28/20 04:40 BUN 44 mg/dL (6-24) H 01/28/20 04:40 Creatinine 2.29 mg/dL (0.67-1.17) H 01/28/20 04:40 Est GFR ( Amer) 33.0 (>60) 01/28/20 04:40 Est GFR (Non-Af Amer) 27.3 (>60) 01/28/20 04:40 BUN/Creatinine Ratio 19.2 (8-20) 01/28/20 04:40 Glucose 128 mg/dL (70-100) H 01/28/20 04:40 POC Glucose (mg/dL) 144 mg/dL (70-100) H 01/28/20 08:47 Lactic Acid 1.1 mmol/L (0.5-2.0) 01/23/20 10:21 Calcium 7.9 mg/dL (8.6-10.3) L 01/28/20 04:40 Ionized Calcium 1.15 mmol/L (1.16-1.32) L 01/26/20 04:35 Magnesium 1.4 mg/dL (1.9-2.7) L 01/27/20 04:20 Total Bilirubin 0.40 mg/dL (0.2-1.0) 01/22/20 14:27 AST 33 U/L (13-39) 01/22/20 14:27 ALT 7 U/L (7-52) 01/22/20 14:27 Alkaline Phosphatase 406 U/L (34-104) H 01/22/20 14:27 Ammonia 40 mcmol/L (16-53) 01/27/20 04:20 Troponin I 1.23 ng/mL (<0.03) H* 01/24/20 04:50 B-Natriuretic Peptide 622 pg/mL (<=100) H 01/22/20 14:27 Total Protein 6.0 g/dL (6.4-8.9) L 01/22/20 14:27 Albumin 3.3 g/dL (3.2-5.2) 01/22/20 14: Globulin 2.7 g/dL (2-4) 01/22/20 14: Albumin/Globulin Ratio 1.2 (1-3) 01/22/20 14:27 TSH 1.55 mcIU/mL (0.34-5.60) 01/22/20 14:27 Urine Color Yellow 01/22/20 20:00 Urine Appearance Clear 01/22/20 20:00 Urine pH 5.0 (5-9) 01/22/20 20:00 Ur Specific Leon 1.015 (1.010-1.030) 01/22/20 20:00 Urine Protein Negative (Negative) 01/22/20 20:00 Urine Ketones Negative (Negative) 01/22/20 20:00 Urine Blood Negative (Negative) 01/22/20 20:00 Urine Nitrate Negative (Negative) 01/22/20 20:00 Urine Bilirubin Negative (Negative) 01/22/20 20:00 Urine Urobilinogen Negative (Negative) 01/22/20 20:00 Ur Leukocyte Esterase Negative (Negative) 01/22/20 20:00 Urine Glucose Negative (Negative) 01/22/20 20:00 Blood Type B Positive 01/22/20 14:27 Antibody Screen Negative 01/22/20 14:27 Crossmatch See Detail 01/22/20 14:27 - Objective Active Medications: Atropine Sulfate (Atropine 1% (Oral/Sl)*) 2 drop SL Q2H PRN PRN Reason: Terminal Secretions Last Admin: 01/30/20 06:12 Dose: 2 drp Heparin Sodium (Porcine) (Heparin Flush Picc/Ml/Cvc(*)) 1 ml FLUSH 0600,1800 CAMI; Protocol Last Admin: 01/30/20 06:14 Dose: 3 ml Lorazepam (Ativan Inj*) 1 mg IV PUSH Q1H PRN PRN Reason: Anxiety/Agitation Last Admin: 01/29/20 18:49 Dose: 1 mg Miscellaneous (Ativan Pyxis Brown) 1 ea N/A .PYXIS BROWN PRN PRN Reason: PER PROTOCOL Morphine Sulfate (Morphine Inj (Syringe)*) 4 mg IV Q1H PRN PRN Reason: PAIN - SEVERE Last Admin: 01/30/20 06:12 Dose: 4 mg Vital Signs: Vital Signs: Temp Pulse Resp BP Pulse Ox 97.9 F 102 20 78/38 86 01/30/20 08:49 01/30/20 08:49 01/30/20 08:49 01/30/20 08:49 01/30/20 08:49 Patient Weight: Weight 76.521 kg Intake and Output: Intake & Output 01/28/20 01/29/20 01/30/20 01/31/20 06:59 06:59 06:59 06:59 Intake Total 68.5 0 Output Total 615 45 290 Balance -546.5 -45 -290 Intake: IV Fluids 8.5 0 NS (0.9%) 8.5 Potassium 0 IVPB 60 NS (0.9%) 60 Oral 0 0 Output: Soto 315 45 290 Residual 300 Soto 16 Fr Temperature 300 Probe Other: # Bowel Movements 0 ADLs: Meal Record Start: 01/22/20 17: 40 Freq: DAILY@0900,1400,1800 Status: Complete Protocol: Created 01/22/20 17:40 System (Rec: 01/22/20 17:40 System TELE-C02) Document 01/27/20 18:00 [id number] (Rec: 01/27/20 18:02 CDE1378 ICU-C06) Document 01/28/20 09:00 VAJ1749 (Rec: 01/28/20 09:31 GIU6026 ICU-C06) Document 01/28/20 18:00 EMA0715 (Rec: 01/28/20 18:03 TQW6550 ICU-C25) ADLs: Meal Record Start: 01/22/20 19: 18 Freq: 09,13,18 Status: Inactive Protocol: Created 01/22/20 19:18 MZY4202 (Rec: 01/22/20 19:18 GFJ9400 IMG-M07) Document 01/23/20 09:00 BXH5279 (Rec: 01/23/20 10:00 AUV3646 ICU-C15) Document 01/23/20 13:00 QTI7907 (Rec: 01/23/20 14:45 JYL9141 ICU-C15) Document 01/23/20 17:51 SOE6075 (Rec: 01/23/20 17:51 LQA3570 TELE-C10) Document 01/24/20 08:55 PID4226 (Rec: 01/24/20 08:55 NIE8305 TELE-C11) Document 01/24/20 13:00 JOZ4699 (Rec: 01/24/20 13:41 QYA8484 TELE-C11) Document 01/24/20 18:00 MPZ4236 (Rec: 01/24/20 18:34 ZJZ8962 TELE-C11) Document 01/25/20 09:00 VTQ1233 (Rec: 01/25/20 10:44 ODD3089 TELE-C10) Document 01/25/20 13:00 CIZ4194 (Rec: 01/25/20 13:26 BTG6549 TELE-C10) Document 01/25/20 18:00 MCD1247 (Rec: 01/25/20 20:02 DBY2694 TELE-C10) Document 01/26/20 09:00 KMP7893 (Rec: 01/26/20 13:32 KKI6035 TELE-C11) Document 01/26/20 13:00 WQW4701 (Rec: 01/26/20 13:33 QNO8166 TELE-C11) Document 01/26/20 17:03 ASM7081 (Rec: 01/26/20 17:03 MVN9336 TELE-C10) Document 01/27/20 09:00 VUB7837 (Rec: 01/27/20 09:03 GLI0752 ICU-C06) Document 01/27/20 13:00 LFC6522 (Rec: 01/27/20 13:29 ZNL4543 ICU-C06) ADLs: Meal Record Start: 01/27/20 06: 05 Freq: 09,13,18 Status: Complete Protocol: Created 01/27/20 06:05 XCG6596 (Rec: 01/27/20 06:05 GXI0981 ICU-M31) ADLs: Meal Record Start: 01/29/20 10: 42 Freq: Status: Active Protocol: Created 01/29/20 10:42 [id number] (Rec: 01/29/20 10:42 PJL6780 SSU-C08) Intake and Output Start: 01/22/20 14: 05 Freq: Status: Complete Protocol: Created 01/22/20 14:05 System (Rec: 01/22/20 14:05 System EDRM-C16) Intake and Output Start: 01/22/20 17: 40 Freq: DAILY@0600,1400,2200 Status: Complete Protocol: Created 01/22/20 17:40 System (Rec: 01/22/20 17:40 System TELE-C02) Document 01/27/20 16:56 MMQ3146 (Rec: 01/27/20 16:57 WGI7137 ICU-C06) Document 01/27/20 22:00 LTI5558 (Rec: 01/27/20 22:45 LTJ2739 ICU-M33) Document 01/28/20 00:54 JNK3168 (Rec: 01/28/20 00:55 DFZ5068 ICU-C06) Document 01/28/20 04:16 FCT8835 (Rec: 01/28/20 04:16 HGW5269 ICU-C06) Document 01/28/20 22:45 QQW1999 (Rec: 01/28/20 22:48 QQT5965 ICU-C12) Document 01/29/20 06:16 WFV9374 (Rec: 01/29/20 06:17 HDS4933 ICU-C12) Intake and Output Start: 01/22/20 19: 18 Freq: Q1HR Status: Inactive Protocol: Created 01/22/20 19:18 LNO6719 (Rec: 01/22/20 19:18 VOR2788 IMG-M07) Document 01/22/20 20:00 ZBI3186 (Rec: 01/22/20 20:06 CUF4629 IMG-M07) Document 01/22/20 21:48 DSG5713 (Rec: 01/22/20 21:48 LYE9471 ICU-C10) Document 01/22/20 22:00 BCQ6070 (Rec: 01/22/20 23:03 YSU9453 IMG-M07) Document 01/22/20 23:00 CCR3282 (Rec: 01/22/20 23:03 DHA1330 IMG-M07) Document 01/23/20 00:00 LTZ4511 (Rec: 01/23/20 00:46 TIY8644 ICU-C16) Document 01/23/20 01:00 ICH3247 (Rec: 01/23/20 01:14 BZZ2797 ICU-C16) Document 01/23/20 02:00 DNY1353 (Rec: 01/23/20 02:04 WJY2277 ICU-C10) Document 01/23/20 03:00 MKE0992 (Rec: 01/23/20 03:10 NVW6940 ICU-C10) Document 01/23/20 04:00 AFD9715 (Rec: 01/23/20 05:21 UJL2095 ICU-C16) Document 01/23/20 05:00 OHQ1026 (Rec: 01/23/20 05:21 PHJ0213 ICU-C16) Document 01/23/20 06:00 SRY9210 (Rec: 01/23/20 06:13 TYM9856 ICU-C16) Document 01/23/20 07:00 ZYL7100 (Rec: 01/23/20 07:34 TMC1963 ICU-C15) Document 01/23/20 08:00 HPV3629 (Rec: 01/23/20 08:20 ZHZ4713 ICU-C15) Document 01/23/20 09:00 RXA2208 (Rec: 01/23/20 10:00 SVA8284 ICU-C15) Document 01/23/20 10:00 KHZ9528 (Rec: 01/23/20 10:27 UQX3280 ICU-C15) Document 01/23/20 11:00 XKQ9537 (Rec: 01/23/20 12:15 KOL8544 ICU-C15) Document 01/23/20 12:00 UZJ1484 (Rec: 01/23/20 12:26 HNQ5306 ICU-C15) Document 01/23/20 13:00 NOX7935 (Rec: 01/23/20 14:45 TYO7215 ICU-C15) Document 01/23/20 14:00 VRZ3866 (Rec: 01/23/20 15:27 PLL8911 TELE-C10) Document 01/23/20 15:00 EIW5029 (Rec: 01/23/20 15:27 RDP2444 TELE-C10) Document 01/23/20 20:03 GDQ8700 (Rec: 01/23/20 20:04 ZVV0066 TELE-M06) Document 01/23/20 22:00 MEI2028 (Rec: 01/23/20 22:08 DGE0839 TELE-C11) Document 01/24/20 02:23 NFD0235 (Rec: 01/24/20 02:23 PLM4108 TELE-C03) Document 01/24/20 05:31 ULX4347 (Rec: 01/24/20 05:35 LEJ8782 TELE-C06) Document 01/24/20 06:08 DQC9217 (Rec: 01/24/20 06:18 BQW6100 TELE-C03) Document 01/24/20 13:41 WAB5027 (Rec: 01/24/20 13:41 NTH9852 TELE-C11) Document 01/24/20 22:00 NII7213 (Rec: 01/24/20 23:46 TXG1912 TELE-C11) Document 01/25/20 06:00 LTV4292 (Rec: 01/25/20 06:05 ZSM8311 TELE-C11) Document 01/25/20 13:34 BBV4862 (Rec: 01/25/20 13:35 IEQ2726 TELE-C10) Document 01/25/20 22:00 LIT2471 (Rec: 01/26/20 00:39 JFM3694 TELE-C08) Document 01/26/20 05:52 OWM7909 (Rec: 01/26/20 05:53 HMT2079 TELE-C08) Document 01/26/20 06:00 OMW2806 (Rec: 01/26/20 06:36 HMU7725 TELE-C07) Document 01/26/20 14:00 XHI8837 (Rec: 01/26/20 14:55 TWS9020 TELE-C11) Document 01/26/20 22:00 UWG8361 (Rec: 01/26/20 22:27 AGW4808 TELE-C10) Document 01/27/20 01:07 NUB3324 (Rec: 01/27/20 01:07 GHX9038 TELE-C09) Intake and Output Start: 01/27/20 06: 05 Freq: 06,14,2200 Status: Complete Protocol: Created 01/27/20 06:05 PFC9300 (Rec: 01/27/20 06:05 EHK6915 ICU-M31) Intake and Output Start: 01/29/20 10: 42 Freq: DAILY@0600,1400,2200 Status: Active Protocol: Created 01/29/20 10:42 LPZ7225 (Rec: 01/29/20 10:42 WDL3881 [facility]-C08) Document 01/29/20 18:07 SOO2331 (Rec: 01/29/20 18:08 SHO9281 [facility]-M17) Document 01/29/20 23:32 ZTG3710 (Rec: 01/29/20 23:[address] [facility]-4) Document 01/30/20 06:48 YTK3716 (Rec: 01/30/20 06:48 ZVV7473 [facility]-M18) Document 01/30/20 06:49 JFF3419 (Rec: 01/30/20 06:49 BME9405 [facility]) Eyes: No Scleral Icterus Ears/Nose/Mouth/Throat: NL Teeth, Lips, Gums Neck: NL Appearance and Movements; NL JVP Cardiovascular: NL Sounds; No Murmurs; No JVD Abdominal: NL Sounds; No Tenderness; No Distention Extremities: No Edema Neurological: - - lethargic - Assessment Assessment: 84yo male with end stage heart disease and previous CVA now with new CVA actively dying - Plan Consult Plan (MU): Palliative Plan: Long discussion with at bedside, support given. Talked about their life together, 50yrs and their travels. They have 2 children a daughter near by and son further away. She is well established in the community and has a lot of support. They have decided to use [facility] and will have a memorial service in the summer. Gave book on dying and phone number for [facility]. says he is a fighter and she isn't surprised he is taking a while to . KPS 10%, PPS 10%. - Time On Unit Date of Evaluation: 01/30/20 Hospice Consult Time in: 11:30 Hospice Consult Time Out: 12:30 Hospice Consult Time Total: 60 > 50% of Time Spend In Counseling or Coordinating Care: Yes
--- NOTE | 2020-01-30 12:44 | PROCNOTE ---
Cardiology Procedure Note ICD REPROGRAMMED TO OFF FOR VT/VT I was asked to turn ICD off by hospitalist. Pt's was in the room, had requested ICD be turned to"off". The patient's had no questions. Pt not alert/arousable. ICD: all tachy therapies turned to "OFF" Pt did not use pacer, in NSR. I turned bradypacing lower limit to 30 bpm, aware. See full interrogation/reprogramming documentation for ICD in paper chart
[2020-01-31] MEDS: Atropine 1% (ORAL/SL)* 15 ML BTL SL PRN ×2 (13:05→16:48)
[2020-01-31] MEDS: Morphine INJ* 4 MG/ML 1 ML SYRINGE (NEW SYRINGE VERSION) IV PRN ×2 (13:10→17:53)
--- NOTE | 2020-01-31 14:54 | PN ---
Subjective Date of Service: 01/31/20 Interval History: Comfortable Social History: Unchanged from Admission Past Medical History: Unchanged from Admission Objective Active Medications: Atropine Sulfate (Atropine 1% (Oral/Sl)*) 2 drop SL Q2H PRN PRN Reason: Terminal Secretions Last Admin: 01/31/20 13:05 Dose: 2 drp Heparin Sodium (Porcine) (Heparin Flush Picc/Ml/Cvc(*)) 1 ml FLUSH 0600,1800 [facility]I; Protocol Last Admin: 01/31/20 06:20 Dose: 3 ml Lorazepam (Ativan Inj*) 1 mg IV PUSH Q1H PRN PRN Reason: Anxiety/Agitation Last Admin: 01/29/20 18:49 Dose: 1 mg Miscellaneous (Ativan Pyxis Brown) 1 ea N/A .PYXIS BROWN PRN PRN Reason: PER PROTOCOL Morphine Sulfate (Morphine Inj (Syringe)*) 4 mg IV Q1H PRN PRN Reason: PAIN - SEVERE Last Admin: 01/31/20 13:10 Dose: 4 mg Vital Signs - 8 hr 01/31/20 01/31/20 01/31/20 08:00 08:08 13:10 Temperature 99.6 F Pulse Rate 94 Respiratory 18 18 16 Rate Blood Pressure 83/36 (mmHg) O2 Sat by Pulse 93 Oximetry Oxygen Devices in Use Now: Nasal Cannula Eyes: No Scleral Icterus Ears/Nose/Mouth/Throat: NL Teeth, Lips, Gums Neck: NL Appearance and Movements; NL JVP Respiratory: - - bronchial breath sounds rales bilaterally Cardiovascular: RRR Abdominal: NL Sounds; No Tenderness; No Distention Extremities: - - edema Neurological: - - lethargic Result Diagrams: 01/28/20 04:40 01/28/20 04:40 Microbiology and Other Data: Microbiology 01/22/20 14:52 Stool Occult Blood (LOLA) - Final Stool 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, HTN, ischemic cardiomyopathy , EF 20%, chronic systolic CHF, s/p ICD presents with weakness and Hb of 4 - Patient Problems (1) GI bleed Current Visit: Yes Status: Acute Code(s): K92.2 - GASTROINTESTINAL HEMORRHAGE, UNSPECIFIED SNOMED Code(s): 51774236 Comment: Initial Hb of 4 (2) Stroke Current Visit: Yes Status: Acute Code(s): I63.9 - CEREBRAL INFARCTION, UNSPECIFIED SNOMED Code(s): 707036508 (3) Respiratory failure Current Visit: Yes Status: Acute Code(s): J96.90 - RESPIRATORY FAILURE, UNSP , UNSP W HYPOXIA OR HYPERCAPNIA SNOMED Code(s): 974908173 Comment: Transferred out of ICU DNR/DNI Comfort care after GOC discussion Pl refer to Dr Schreiber's note for details Discussed with pt's HCP who is in agreement Continue comfort/supportive care Palliative care consult
[2020-02-01] MEDS: Morphine INJ* 4 MG/ML 1 ML SYRINGE (NEW SYRINGE VERSION) IV PRN ×2 (00:22→15:20)
--- NOTE | 2020-02-01 12:36 | PN ---
Subjective Date of Service: 02/01/20 Interval History: Comfortable Social History: Unchanged from Admission Past Medical History: Unchanged from Admission Objective Active Medications: Atropine Sulfate (Atropine 1% (Oral/Sl)*) 2 drop SL Q2H PRN PRN Reason: Terminal Secretions Last Admin: 01/31/20 16:48 Dose: 2 drp Heparin Sodium (Porcine) (Heparin Flush Picc/Ml/Cvc(*)) 1 ml FLUSH 0600,1800 CAMI; Protocol Last Admin: 02/01/20 05:35 Dose: 3 ml Lorazepam (Ativan Inj*) 1 mg IV PUSH Q1H PRN PRN Reason: Anxiety/Agitation Last Admin: 01/29/20 18:49 Dose: 1 mg Miscellaneous (Ativan Pyxis Martinez) 1 ea N/A .PYXIS MARTINEZ PRN PRN Reason: PER PROTOCOL Morphine Sulfate (Morphine Inj (Syringe)*) 4 mg IV Q1H PRN PRN Reason: PAIN - SEVERE Last Admin: 02/01/20 00:22 Dose: 4 mg Vital Signs - 8 hr 02/01/20 02/01/20 07:24 07:35 Temperature 97.4 F Pulse Rate 80 Respiratory 16 12 Rate Blood Pressure 89/40 (mmHg) O2 Sat by Pulse 94 Oximetry Oxygen Devices in Use Now: Nasal Cannula Respiratory: Symmetrical Chest Expansion and Respiratory Effort, - - bronchial breath sounds bilateral rales Cardiovascular: RRR Extremities: - - edema present Neurological: Alert and Oriented x 3, - - lathargic Result Diagrams: 01/28/20 04:40 01/28/20 04:40 Microbiology and Other Data: Microbiology 01/22/20 14:52 Stool Occult Blood (LOLA) - Final Stool 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, HTN, ischemic cardiomyopathy , EF 20%, chronic systolic CHF, s/p ICD presents with weakness and Hb of 4 - Patient Problems (1) GI bleed Current Visit: Yes Status: Acute Code(s): K92.2 - GASTROINTESTINAL HEMORRHAGE, UNSPECIFIED SNOMED Code(s): 06223301 Comment: Initial Hb of 4 (2) Stroke Current Visit: Yes Status: Acute Code(s): I63.9 - CEREBRAL INFARCTION, UNSPECIFIED SNOMED Code(s): 769448305 (3) Respiratory failure Current Visit: Yes Status: Acute Code(s): J96.90 - RESPIRATORY FAILURE, UNSP , UNSP W HYPOXIA OR HYPERCAPNIA SNOMED Code(s): 949229747 Comment: Transferred out of ICU DNR/DNI Comfort care after GOC discussion Pl refer to Dr Schreiber's note for details Discussed with pt's HCP who is in agreement Continue comfort/supportive care Palliative care consult Status and Disposition: Discussed with who is HCP about turning off ICD.She is in agreement and wants him to be comfortable. Appreciate Dr Torrez's assistance in turning off ICD. Appreciate Dr Mcdaniel input. Family meeting in progress.
[2020-02-01] MEDS: Atropine 1% (ORAL/SL)* 15 ML BTL SL PRN ×2 (15:20→21:47)
[2020-02-02] MEDS: Morphine INJ* 4 MG/ML 1 ML SYRINGE (NEW SYRINGE VERSION) IV PRN ×2 (04:23→16:19)
[2020-02-02 08:17] VITALS: BP 90/39
[2020-02-02] MEDS: Atropine 1% (ORAL/SL)* 15 ML BTL SL PRN ×3 (11:50→19:57)
--- NOTE | 2020-02-02 15:03 | PN ---
Subjective Date of Service: 02/02/20 Interval History: comfortable Social History: Unchanged from Admission Past Medical History: Unchanged from Admission Objective Active Medications: Atropine Sulfate (Atropine 1% (Oral/Sl)*) 2 drop SL Q2H PRN PRN Reason: Terminal Secretions Last Admin: 02/02/20 11:50 Dose: 2 drp Heparin Sodium (Porcine) (Heparin Flush Picc/Ml/Cvc(*)) 1 ml FLUSH 0600,1800 CAMI; Protocol Last Admin: 02/02/20 04:25 Dose: 3 ml Lorazepam (Ativan Inj*) 1 mg IV PUSH Q1H PRN PRN Reason: Anxiety/Agitation Last Admin: 01/29/20 18:49 Dose: 1 mg Miscellaneous (Ativan Pyxis Brown) 1 ea N/A .PYXIS BROWN PRN PRN Reason: PER PROTOCOL Morphine Sulfate (Morphine Inj (Syringe)*) 4 mg IV Q1H PRN PRN Reason: PAIN - SEVERE Last Admin: 02/02/20 04:23 Dose: 4 mg Vital Signs - 8 hr 02/02/20 02/02/20 08:00 08:15 Temperature 98.7 F Pulse Rate 100 Respiratory 16 16 Rate Blood Pressure 90/39 (mmHg) O2 Sat by Pulse 89 Oximetry Oxygen Devices in Use Now: Nasal Cannula Eyes: No Scleral Icterus Respiratory: - - bronchial breath sounds rales bilaterally Cardiovascular: RRR Abdominal: NL Sounds; No Tenderness; No Distention Extremities: - - edema Neurological: - - lethargic Result Diagrams: 01/28/20 04:40 01/28/20 04:40 Microbiology and Other Data: Microbiology 01/22/20 14:52 Stool Occult Blood ([facility]OLA) - Final Stool 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, HTN, ischemic cardiomyopathy , EF 20%, chronic systolic CHF, s/p ICD presents with weakness and Hb of 4 - Patient Problems (1) GI bleed Current Visit: Yes Status: Acute Code(s): K92.2 - GASTROINTESTINAL HEMORRHAGE, UNSPECIFIED SNOMED Code(s): 00066221 Comment: Initial Hb of 4 (2) Stroke Current Visit: Yes Status: Acute Code(s): I63.9 - CEREBRAL INFARCTION, UNSPECIFIED SNOMED Code(s): 451350116 (3) Respiratory failure Current Visit: Yes Status: Acute Code(s): J96.90 - RESPIRATORY FAILURE, UNSP , UNSP W HYPOXIA OR HYPERCAPNIA SNOMED Code(s): 582365986 Comment: Transferred out of ICU DNR/DNI Comfort care after GOC discussion Pl refer to Dr Schreiber's note for details Discussed with pt's HCP who is in agreement Continue comfort/supportive care Palliative care Status and Disposition: ICD off after d/w
[2020-02-03] MEDS: Atropine 1% (ORAL/SL)* 15 ML BTL SL PRN (00:02)
--- NOTE | 2020-02-03 03:28 | PN ---
Progress Note - Progress Note Date of Service: 02/03/20 Note: Paged by RN - Patient was cleaned up around 3:00 AM. Checked on again at 3:10 and had no respirations or heart sounds On exam - patient no respirations or heart sounds TOD: 3:10 Notified . She was going to call her daughter to decide about coming in now to see him.
--- NOTE | 2020-02-03 04:11 | DS ---
CC: Dr. Gely Ruiz* SUMMARY: DATE OF ADMISSION: 01/22/20. DATE OF : 02/03/20 at 3:10 a.m. PRIMARY CARE PHYSICIAN: Dr. Gely Ruiz. HISTORY OF PRESENT ILLNESS: This is an 84-year-old male with a past medical history of ischemic cardiomyopathy, who initially presented to the emergency room on 01/22/20 with a chief complaint of generalized weakness. On admission, the patient was profoundly anemic with a hemoglobin of 4 and his INR was 8.82. The patient was Hemoccult positive but was not having a significant GI bleed. He was initially admitted to the ICU where he was monitored while being transfused. The patient improved from the GI bleeding and went out onto the floor. Unfortunately during the oil expeller of 01/27/20, the patient became acutely unresponsive and suffered a new CVA. He does have a history of CVA that is why he was on anticoagulation. He went back into the ICU at that time and was seen by the electronic bench technician and Neurology and had remained unresponsive. Due to the significance of his new stroke with significant neurologic devastation, goals of care were readdressed and the discussion with physician, with the , the decision was made to make the patient change his status to DNR/DNI and put him on comfort care. He went out to the floor. The patient was comfortable and at 3:10 this morning. I spoke with the to notify her and she was going to call her daughter to determine if she was going to come in to see him. Please refer to the full medical records for more detailed history of his hospitalization. [id number]/[facility] #: [id number] SERGIO
== END 2020-02-03 03:10 | disposition expired | DRG 377 ==
LOC: ED 14:02 → ICU 17:03 → UNDOADMIN 17:03 → MEDTELE 17:03 → ICU 01-27 04:51 → SSU 01-29 09:30
PROVIDERS: ADMIT Internal Medicine; ATTEND Internal Medicine
PROC: 05H533Z Insertion of Infusion Device into Right Subclavian Vein, Percutaneous Approach (ICD-10-PCS; principal; 2020-01-22)
PROC: 30233N1 Transfusion of Nonautologous Red Blood Cells into Peripheral Vein, Percutaneous Approach (ICD-10-PCS; 2020-01-22)
DX: K92.1 Melena (principal); R40.20 Unspecified coma; I63.30 Cerebral infarction due to thrombosis of unspecified cerebral artery; J96.90 Respiratory failure, unspecified, unspecified whether with hypoxia or hypercapnia; G93.6 Cerebral edema; G93.40 Encephalopathy, unspecified; I13.0 Hypertensive heart and chronic kidney disease with heart failure and stage 1 through stage 4 chronic kidney disease, or unspecified chronic kidney disease; D62 Acute posthemorrhagic anemia; G81.94 Hemiplegia, unspecified affecting left nondominant side; E87.2 Acidosis; J98.11 Atelectasis; I50.22 Chronic systolic (congestive) heart failure; I24.8 Other forms of acute ischemic heart disease; N18.4 Chronic kidney disease, stage 4 (severe); R57.8 Other shock; I50.84 End stage heart failure; D69.6 Thrombocytopenia, unspecified; Z66 Do not resuscitate; E11.22 Type 2 diabetes mellitus with diabetic chronic kidney disease; I25.10 Atherosclerotic heart disease of native coronary artery without angina pectoris; K21.9 Gastro-esophageal reflux disease without esophagitis; E78.5 Hyperlipidemia, unspecified; E03.9 Hypothyroidism, unspecified; I51.3 Intracardiac thrombosis, not elsewhere classified; I95.9 Hypotension, unspecified; D64.9 Anemia, unspecified; R41.0 Disorientation, unspecified; Z51.5 Encounter for palliative care; J44.9 Chronic obstructive pulmonary disease, unspecified; I25.5 Ischemic cardiomyopathy; R53.1 Weakness; K59.00 Constipation, unspecified; E86.1 Hypovolemia; F03.90 Unspecified dementia, unspecified severity, without behavioral disturbance, psychotic disturbance, mood disturbance, and anxiety; R79.1 Abnormal coagulation profile; M75.102 Unspecified rotator cuff tear or rupture of left shoulder, not specified as traumatic; R74.8 Abnormal levels of other serum enzymes; T79.A0XD Compartment syndrome, unspecified, subsequent encounter; Z95.810 Presence of automatic (implantable) cardiac defibrillator; Z86.73 Personal history of transient ischemic attack (TIA), and cerebral infarction without residual deficits; Z86.74 Personal history of sudden cardiac arrest; Z86.718 Personal history of other venous thrombosis and embolism; Z95.5 Presence of coronary angioplasty implant and graft; Z79.01 Long term (current) use of anticoagulants; Z79.84 Long term (current) use of oral hypoglycemic drugs; Z79.82 Long term (current) use of aspirin; Z79.899 Other long term (current) drug therapy; Z88.8 Allergy status to other drugs, medicaments and biological substances
CPT/HCPCS: 36415; 70450; 71045; 74176; 80048; 80053; 81003; 82140; 82270; 82330; 82947; 83605; 83735; 83880; 84443; 84484; 85014; 85018; 85025; 85027; 85060; 85610; 85730; 86850; 86900; 86901; 86922; 86927; 93005; 93306; 95816; 99285; A9270-GY; C8929; J1940; J2060; J2270; J3430; J3475; J3480; P9017; P9040